=== PATIENT | female | born 1990 | race Caucasian/White ===

== ENCOUNTER 2023-11-25 10:34 | Outpatient (CLI) | payer OTHER, SELFPAY ==
--- NOTE | ~2023-11-25 | MR_ITS ---
EXAMINATION: MR shoulder LT wo con DATE: 11/25/2023 11:18 INDICATION: Left shoulder injury. Left shoulder pain. TECHNIQUE: Magnetic resonance imaging (MRI) of the left shoulder was performed without intravenous co ntrast. Sequences included axial PD-weighted FS FSE, coronal oblique PD-weighted FS FSE and T2-weight ed FS FSE, and sagittal oblique T2-weighted FS FSE and T1-weighted FSE. COMPARISON: None. FINDINGS: Coracoacromial arch: The acromion undersurface is curved in morphology (type II). There is mild acromioclavicular joint os teoarthritis including inferiorly directed osteophytes. There is mild subacromial/subdeltoid bursitis . Rotator cuff: There is mild supraspinatus and infraspinatus tendinopathy. Teres minor tendon is normal. There is mi ld subscapularis tendinopathy. There is no asymmetric fatty atrophy of the rotator cuff muscle bellie s. Biceps tendon and glenoid labrum: Intra-articular biceps tendon is normal. Intra-articular biceps tendon is normal. The glenoid labrum is normal. Fluid: There is a small glenohumeral joint effusion. Bones/cartilage: Humeral head cartilage is normal. Glenoid cartilage is normal. IMPRESSION: 1. Mild rotator cuff tendinopathy. No tear. 2. Mild acromioclavicular joint osteoarthritis. 3. Mild subacromial/subdeltoid bursitis. 4. Small glenohumeral joint effusion. Reviewed, dictated and finalized at location [facility]
== END 2023-11-25 10:35 | disposition home or self-care (01) ==
DX: M75.32 Calcific tendinitis of left shoulder (principal); M19.012 Primary osteoarthritis, left shoulder; M75.52 Bursitis of left shoulder; M25.412 Effusion, left shoulder
CPT/HCPCS: 73221

== ENCOUNTER 2024-06-07 19:11 | Emergency (ER) | payer OTHER, SELFPAY ==
--- NOTE | 2024-06-07 19:13 | ED.FEMALEGU ---
HPI - Female Genitourinary General Chief complaint: Urogenital-Female Stated complaint: UTI Time Seen by Provider: 06/07/24 19:13 Source: patient Mode of arrival: ambulatory Limitations: no limitations History of Present Illness HPI Narrative: Lilo is a 33-year-old female patient presenting to the clinic today with complaints of possible UTI x3 days. She reports she has been taking azo every 4-6 hours as needed for pain. Has developed some back pain on the left side as well as reporting lower abdominal pain, burning, frequency, and urgency with urination. Also reports some nausea. No known fever, chills, or body aches Related Data Home Medications Medication Instructions Recorded Confirmed desogestrel 0.15 mg-ethinyl 1 tablet PO DAILY 06/07/24 06/07/24 estradiol 0.03 mg tablet (Apri) venlafaxine 75 mg capsule,extended 37.5 mg PO DAILY 06/07/24 06/07/24 release 24 hr Allergies Allergy/AdvReac Type Severity Reaction Status Date / Time No Known Allergies Allergy Verified 06/07/24 19:30 Review of Systems Review of Systems: Pertinent positives per HPI. Patient denies any fever, chills, rash, headache, visual changes, dizziness, cough, runny nose, sore throat, shortness of breath, chest pain, palpitations, vomiting, diarrhea, constipation, abdominal pain. PMFSH Comments At the time of my signature, I reviewed and agree with the nursing past medical, surgical, social, and family history. There is no relevant family history pertinent to the patient complaint. Exam Narrative: General: Well-developed, well nourished, in no apparent distress. Head: Normocephalic, atraumatic. Cardio: Regular rate and rhythm, s1 and s2 normal, no murmur appreciated. Resp: Clear to auscultation bilaterally, no rhonchi, rales, wheezing or rubs. Abdomen: Soft, pliable, bowel sounds present in all quadrants, tender to palpation over the suprapubic area, no organomegly, left CVAT tenderness. Course Course Emergency Course: Portions of this record may have been created with voice recognition software. Level of Care: Express Care Visit Vital Signs Vital signs: Vital signs reviewed MDM - Female Genitourinary MDM Narrative Medical decision making narrative: At the time of visit patient is resting comfortably on the exam table. Patient appears to be nontoxic. Labs: Urine culture was sent to the lab. Patient reports she has been taking azo every 4-6 hours Plan: Patient is on azo so we cannot do a urine dip at this time. Will send urine for culture. I suspect patient likely has early pyelonephritis as she has left-sided CVAT, nausea, and UTI symptoms. Will place on 7 day course of Bactrim DS. Supportive measures were discussed with the patient and they voiced understanding discharge instructions and agrees to treatment plan. Return precautions reviewed Differential Diagnosis Differential diagnosis: Likely urinary tract infection and cystitis Discharge Plan Discharge Clinical Impression: Urinary tract infection Qualifiers: Urinary tract infection type: acute cystitis Hematuria presence: without hematuria Qualified Code(s): N30.00 - Acute cystitis without hematuria Patient Disposition: Home, Self-Care Condition: Stable Instructions: Antibiotic Form, Urinary Tract Infection in Women (ED) Additional Instructions: Urinalysis was sent for culture. We will call you if the antibiotics do not cover the type of infection that is growing and switch your antibiotics if needed Take Bactrim as prescribed Increase fluids and stay well hydrated Wipe front to back. May use wet wipes. Avoid tub baths If sexually active- pee before and after intercourse. Wear cotton panties Avoid tight clothing up against the genitals Follow up with your PCP in 1 week if symptoms persist. Prescriptions: New sulfamethoxazole-trimethoprim [Bactrim DS] 800-160 mg tablet 1 tablet PO Q12H 7 Days Qty: 14 0RF No
[2024-06-07 19:23] VITALS: BP 145/88; PULSE 88; RESP 18; TEMP 36.6; O2SAT 98
== END 2024-06-07 19:33 | disposition home or self-care (01) ==
PROVIDERS: Emergency Provider Nurse Practitioner Family
DX: N30.00 Acute cystitis without hematuria (principal); B96.20 Unspecified Escherichia coli [E. coli] as the cause of diseases classified elsewhere; F41.9 Anxiety disorder, unspecified; F32.A Depression, unspecified; Z86.16 Personal history of COVID-19
CPT/HCPCS: 87077; 87086; 87088; 87186; 99213; G0463

== ENCOUNTER 2024-10-25 17:09 | Emergency (ER) | payer OTHER, SELFPAY ==
[2024-10-25 17:09] VITALS: BP 127/86; PULSE 78; RESP 16; TEMP 36.6; O2SAT 99
--- OUTSIDE RECORDS SUMMARY | 2024-10-25 17:13 | XMS_ITS | Clinical Summary ---
Author Organization [facility] [employer] Address [address] [place] [address] Care Team Providers Care Sulfonation Equipment Operator Name Role Phone Unavailable Primary Care Provider Unavailabl e Source Comments [facility] [employer],non-owned Affiliates and Associated Physician Practices is amultiple site organization consisting of ambulatory clinics and hospital sitesin [place], [place], [place] and [place]. This disclosure is being madepursuant to the Care Everywhere program and may not contain all information available regarding this patient. Last updated 18.[employer] Allergies No known active allergies Medications * Be aware that medications may not be up to date on this document. Alwaysverify current medications with the patient. Medication Sig Dispensed Refills Start Date End Date Status raNITIdine (ZANTAC) 150 MG tablet Take 150 mg by mouth once daily Active Vit-Fe Fumarate-FA ( VITAMIN PO) Take 1 tablet by mouth once daily Active ibuprofen (MOTRIN) 600 MG tablet Take 1 tablet by mouth every 6 hours as needed for Pain 60 tablet 2 04/11/2018 Active docusate sodium (COLACE) 100 MG capsule Take 1 capsule by mouth 2 times daily 60 capsule 2 04/11/2018 Active Active Problems Problem Noted Date Diagnosed Date Oligohydramnios in third trimester 04/06/2018 Supervision of normal 04/05/2018 History of 2 sections 04/05/2018 Overview (04/05/2018): History of two prior CD First for face presentation Second for AoDil versus physician concern Immunizations Name Administration Dates Next Due TDAP (7yrs+) 04/10/2018 Social History Tobacco Use Types Packs/Day Years Used Date Smoking Tobacco: Never Smokeless Tobacco: Never Sex and Gender Information Value Date Recorded Sex Assigned at Not on file Gender Identity Not on file Sexual Orientation Not on file Last Filed Vital Signs Vital Sign Reading Time Taken Comments Blood Pressure 118/81 04/11/2018 1:20 PM CDT Pulse 67 04/11/2018 1:20 PM CDT Temperature 36.5 C (97.7 F) 04/11/2018 1:20 PM CDT Respiratory Rate 18 04/11/2018 1:20 PM CDT Oxygen Saturation 100% 04/11/2018 1:20 PM CDT Inhaled Oxygen Concentration - - Weight 81.1 kg (178 lb 11.2 oz) 04/05/2018 6:25 PM CDT Height 160 cm (5' 3 ) 04/05/2018 3:08 PM CDT Body Mass Index 31.66 04/05/2018 3:08 PM CDT Plan of Treatment Health Maintenance Due Date Last Done Comments PAP SMEAR 1990 HIV SCREENING 2005 HEPATITIS C SCREENING 10/10/2008 HEPATITIS B VACCINE (1 of 3 - 19+ 3-dose series) 2009 COVID-19 VACCINE (2023-2 5 season) 2024 INFLUENZA VACCINE (#1) 2024 DEPRESSION SCREENING 09/18/2024 DTAP/TDAP/TD VACCINES (2 - T d or Tdap) 04/10/2028 04/10/2018 ZOSTER VACCINE (1 of 2) 2040 HIB VACCINE Aged Out No longer eligi ble based on patient's age to complete this topic HPV VACCINE Aged Out No longer eligi ble based on patient's age to complete this topic MENINGOCOCCAL (Group B) VACCINE Aged Out No longer eligible based on patient's age to complete this topic MENINGOCOCCAL VACCINE Aged Out No jamel judy eligible based on patient's age to complete this topic PNEUMOCOCCAL VACCINE Aged Out No long er eligible based on patient's age to complete this topic Advance Directives * Full Code (Latest Code Status on File) Date Activated Date Inactivated Comments 04/08/2018 9:19 AM 04/11/2018 2:39 PM * Full Code Date Activated Date Inactivated Comments 04/05/2018 7:58 PM 04/08/2018 9:19 AM
--- OUTSIDE RECORDS SUMMARY | 2024-10-25 17:13 | XMS_ITS | Referral Summary ---
Author Organization [facility] [employer] Address [address] [place] [address] Care Team Providers Care Stove Tender Name Role Phone Unavailable Primary Care Provider Unavailabl e Source Comments [facility] [employer],non-owned Affiliates and Associated Physician Practices is amultiple site organization consisting of ambulatory clinics and hospital sitesin [place], [place], [place] and [place]. This disclosure is being madepursuant to the Care Everywhere program and may not contain all information available regarding this patient. Last updated 18.[facility] [employer] Allergies No known active allergies Medications * [...] Mass Index 31.66 04/05/2018 3:08 PM CDT Functional Status Functional Status Response Date of Assess ment Is person deaf or have serious hearing difficult y? No 04/08/2018 Is person blind or have serious difficulty seein g? No 04/08/2018 Does person have serious dif ficulty walking/climbing stairs? No 04/08/2018 Does person have difficulty dressing/bathing? No 04/08/2018 Does person have difficulty doing errands alone? No 04/08/2018 Cognitive Status Response Date of Assessm ent Does person have difficulty concentrating/remembering/making decisions? No 04/08/2018 Plan of Treatment Not on file Advance Directives * Full Code (Latest Code Status on File) Date Activated Date Inactivated Comments 04/08/2018 9:19 AM 04/11/2018 2:39 PM * Full Code Date Activated Date Inactivated Comments 04/05/2018 7:58 PM 04/08/2018 9:19 AM
--- OUTSIDE RECORDS SUMMARY | 2024-10-25 17:13 | XMS_ITS | Patient Health Summary ---
Author Organization [facility] Address [address] [place] [address] Care Team Providers Care Screening Nurse Name Role Phone Unavailable Primary Care Provider Unavailabl e Note from [facility],non-owned Affiliates and Associated Physician Practices is amultiple site organization consisting of ambulatory clinics and hospital sitesin [place], [place], [place] and [place]. This disclosure is being madepursuant to the Care Everywhere program and may not contain all information available regarding this patient. Last updated 18.[facility] Allergies No known active allergies Medications * Be aware that medications may not be up to date on this document. Alwaysverify current medications with the patient. * raNITIdine (ZANTAC) 150 MG tablet Take 150 mg by mouth once daily * Vit-Fe Fumarate-FA ( VITAMIN PO) Take 1 tablet by mouth once daily * ibuprofen (MOTRIN) 600 MG tablet(Started 04/11/2018) Take 1 tablet by mouth every 6 hours as needed for Pain 2 refills remaining * docusate sodium (COLACE) 100 MG capsule(Started 04/11/2018) Take 1 capsule by mouth 2 times daily 2 refills remaining Active Problems Problem Noted Date Diagnosed Date Oligohydramnios in third trimester 04/06/2018 Supervision of normal 04/05/2018 History of 2 sections 04/05/2018 Immunizations * TDAP (7yrs+)(Given 04/10/2018) Social History Tobacco Use Types Packs/Day Years [...] Mass Index 31.66 04/05/2018 3:08 PM CDT Procedures * HGB HCT PANEL(Performed 04/10/2018) * NEURAXIAL BLOCK(Performed 04/09/2018) * BLOOD GASES CORD NORMA (ISTAT)(Performed 04/09/2018) * BLOOD GASES CORD ART (ISTAT)(Performed 04/09/2018) * TYPE + SCREEN PANEL(Performed 04/08/2018) * CBC W AUTO DIFFERENTIAL(Performed 04/08/2018) Performed for Encounter for supervision of normal first in third trimester (HCC) * BLOOD TYPE VERIFICATION(Performed 04/05/2018) * TYPE + SCREEN PANEL(Performed 04/05/2018) * CBC W AUTO DIFFERENTIAL(Performed 04/05/2018) * SONOGRAM - COMPLETE(Performed 04/05/2018) Performed for History of 2 sections Results * (ABNORMAL) HGB HCT PANEL (04/10/2018 4:34 AM CDT) Hemoglobin 10.1(L) 12.0 - 15.6 gm/dL 04/10/2018 5:14 AM CDT [facility] Hematocrit 29.9(L) 35.9 - 45.5 % 04/10/2018 5:14 AM CDT [facility] Blood BLOOD SPECIMEN / Unknown Lab Venipuncture / Unknown 04/10/2018 4:34 AM CDT 04/10/2018 5:03 AM CDT Rita Theodore MD LAB - HEMATOLOGY ORDERABLES [facility] [address] [place] [address] [phone] * NEURAXIAL BLOCK (04/09/2018 6:28 PM CDT) Narrative Kuldip Dumas MD - 04/09/2018 6:28 PM CDT Vivian Tierney APRN-FRAME TABLE OPERATOR 04/09/2018 11:23 AM Neuraxial Block Note Procedure Name: Neuraxial Block Patient Location: OB Pre-Procedure: Indications: labor analgesia Pre-Anesthetic Checklist: Patient identified, IV Checked, Risks and benefits discussed, Surgical consent verified, Monitors and equipment, Site examined, Pre-op evaluation done, Time-out performed, Informed consent obtained, Questions answered/anesthesia questions answered and Allergies reviewed Anticoagulation/ Anti-thrombosis status confirmed? Yes Monitors: BP and continuous pluse ox Patient Condition: awake Patient Position: sitting Procedure: Block Type: Epidural Prep: Betadine Sterile Field: mask, cap/hat, sterile established and sterile gloves Approach: midline Skin localized with: lidocaine 1%, 5 mL Epidural Block: Is this procedure for postop pain? No Needle Type: Tuohy Needle gauge: 18 G Needle length: 90 mm Placement Site: L3-L4 Number of Attempts: 1 Loss of Resistance: 8 air Catheter length at skin (cm): 14 CSF Aspirated from catheter: No Blood Aspirated: No Test Dose: lidocaine 1.5% with 1-200,000 epinephrine 3 mL at 04/09/2018 11:12 AM Test Dose Response: No Epidural Local Anesthetic: Bupivacaine: 0.25% with Epinephrine 1-200,000 , 10 mL Epidural Infusion Medications: Ropivacaine: 0.2% with Fentanyl 2mcg/mL in NS , 150 cc (mL) at 14 mL/hr Degree of difficulty: none Procedure Tolerance: tolerated well Sensory Level: T8 Motor Blockade: Yes Position post procedure: head of bed elevated 30 degrees, left uterine displacement Vital Signs: Vital sings monitored and stable throughout. See anesthesia record for details., Vital signs moniitored and stable throughout. See nursing vitals flowsheet for details., heart tones monitored and stable throughout. Staff: Anesthesia Provider: VIVIAN TIERNEY - performed the procedure Provider #1: KULDIP DUMAS Additional Notes: Called to patients room. Epidural placed without complications. Negative heme, Neg, CSF + JUNO x 1 attempt. Pt getting comfortable Kuldip Dumas MD GENERAL ANESTHESIA O RDERABLES * (ABNORMAL) BLOOD GASES CORD NORMA (ISTAT) (04/09/2018 4:16 PM CDT) pH Cord Venous POCT 7.43(H) 7.28 - 7.40 pH 04/09/2018 4:46 PM CDT [facility] pCO2 Cord Venous POCT 28(L) 35 - 45 mmHg 04/09/2018 4:46 PM CDT [facility] pO2 Cord Venous POCT 36(H) 22 - 33 mmHg 04/09/2018 4:46 PM CDT [facility] HCO3 Cord Arterial POCT 18(L) 22 - 24 mmol/L 04/09/2018 4:46 PM CDT [facility] BE Cord Venous POCT Calc -4 -6.4 - 1.6 mmol/L 04/09/2018 4:46 PM CDT [facility] TCO2 Cord Venous POCT 19(L) 22 - 30 mmol/L 04/09/2018 4:46 PM CDT [facility] O2 Saturation % Cord Venous Calc POCT 72 % 04/09/2018 4:46 PM CDT [facility] Site CORD NORMA 04/09/2018 4:46 PM CDT [facility] Sample iSTAT CORD V 04/09/2018 4:46 PM CDT [facility] Blood CORD BLOOD SPECIMEN / Unknown 04/09/2018 4:16 PM CDT 04/09/2018 4:46 PM CDT Kamini Chase MD LAB - POINT OF CARE ORDERABLES Performing Organization Address City/State/[facility] Co de Phone Number [facility] [address] [place], [place] [id number] * (ABNORMAL) BLOOD GASES CORD ART (ISTAT) (04/09/2018 4:11 PM CDT) pH Cord Arterial POCT 7.44(H) 7.20 - 7.34 pH 04/09/2018 4:46 PM CDT [facility] pCO2 Cord Arterial POCT 27.3(L) 45 - 55 mmHg 04/09/2018 4:46 PM CDT [facility] pO2 Cord Arterial POCT 34(H) 12 - 25 mmHg 04/09/2018 4:46 PM CDT [facility] HCO3 Cord Arterial POCT 18.3(L) 22 - 24 mmol/L 04/09/2018 4:46 PM CDT [facility] BE Cord Arterial POCT -4(L) -2.9 - 8.3 mmol/L 04/09/2018 4:46 PM CDT [facility] TCO2 Cord Arterial POCT 19 mmol/L 04/09/2018 4:46 PM CDT [facility] O2 Saturation Cord Art % Calc POCT 70 % 04/09/2018 4:46 PM CDT [facility] Site CORD ART 04/09/2018 4:46 PM CDT [facility] Sample iSTAT CORD A 04/09/2018 4:46 PM CDT [facility] Blood CORD BLOOD SPECIMEN / Unknown 04/09/2018 4:11 PM CDT 04/09/2018 4:46 PM CDT Kamini Chase MD LAB - POINT OF CARE ORDERABLES Performing Organization Address City/[facility] Co de Phone Number [facility] [address] [place] [address] * TYPE + SCREEN PANEL (04/08/2018 4:45 AM CDT) Only the most recent of2 resultswithin the time period is included. ABO O 04/08/2018 5:51 AM CDT [facility] Rh Type Negative 04/08/2018 5:51 AM CDT [facility] Comment:History checked. Antibody Screen Negative 04/08/2018 5:51 AM CDT [facility] Blood Bank BLOOD SPECIMEN / Unknown Lab Venipuncture / Unknown 04/08/2018 4:45 AM CDT 04/08/2018 4:58 AM CDT Manisha Lara MD LAB - BLOOD BANK ORD ERABLES Performing Organization Address [facility] Co de Phone Number [facility] [address] [place] [address] * (ABNORMAL) CBC W AUTO DIFFERENTIAL (04/08/2018 4:45 AM CDT) Only the most recent of2 resultswithin the time period is included. [facility] WBC 5.8 4.4 - 10.7 x10E9/L 04/08/2018 5:20 AM CDT [facility] WBC Corrected x10E9/L 04/08/2018 5:20 AM CDT [facility] RBC 3.70(L) 3.80 - 5.20 x10E12/L 04/08/2018 5:20 AM CDT [facility] Hemoglobin 11.2(L) 12.0 - 15.6 gm/dL 04/08/2018 5:20 AM CDT [facility] Hematocrit 33.0(L) 35.9 - 45.5 % 04/08/2018 5:20 AM CDT [facility] MCV 89.2 80.7 - 98.3 fl 04/08/2018 5:20 AM CDT [facility] MCH 30.3 26.7 - 34.0 pg 04/08/2018 5:20 [facility] MCHC 33.9 30.8 - 35.9 gm/dL 04/08/2018 5:20 AM [facility] Platelet Count 133(L) 153 - 416 x10E9/L 04/08/2018 5:20 AM CDT [facility] RDW-CV 13.7 12.1 - 14.9 % 04/08/2018 5:20 AM CDT [facility] MPV 10.9 9.4 - 12.9 fl 04/08/2018 5:20 AM [facility] Neutrophils % 56.3 44.0 - 73.0 % 04/08/2018 5:20 AM CDT [facility] Lymphocytes % 34.9 20.0 - 43.0 % 04/08/2018 5:20 AM CDT [facility] Monocytes % 7.5 5.0 - 13.0 % 04/08/2018 5:20 AM CDT [facility] Eosinophils % 0.3 0.0 - 6.0 % 04/08/2018 5:20 AM CDT [facility] Basophils % 0.3 0.0 - 2.0 % 04/08/2018 5:20 AM CDT [facility] Immature Granulocytes 0.7 0 - 1 % 04/08/2018 5:20 AM CDT [facility] Neutrophil Absolute 3.28 2.01 - 7.14 x10E9/L 04/08/2018 5:20 AM CDT [facility] Lymphocytes Absolute 2.04 1.07 - 3.94 x10E9/L 04/08/2018 5:20 AM CDT [facility] Monocytes Absolute 0.44 0.26 - 1.07 x10E9/L 04/08/2018 5:20 AM CDT [facility] Eosinophils Absolute 0.02 0 - 0.47 x10E9/L 04/08/2018 5:20 AM CDT [facility] Basophils Absolute 0.02 0 - 0.08 x10E9/L 04/08/2018 5:20 AM CDT [facility] Immature Granulocytes Absolute 0.04 0.00 - 0.06 x10E9/L 04/08/2018 5:20 AM CDT [facility] nRBC Auto 0 /100 WBC 04/08/2018 5:20 AM CDT [facility] Blood BLOOD SPECIMEN / Unknown Lab Venipuncture / Unknown 04/08/2018 4:45 AM CDT 04/08/2018 4:57 AM CDT Manisha Lara MD LAB - HEMATOLOGY ORD ERABLES [facility] [address] [place] [address] * BLOOD TYPE VERIFICATION (04/05/2018 9:07 PM CDT) ABO O 04/05/2018 9:49 PM CDT [facility] Rh Type Negative 04/05/2018 9:49 PM CDT [facility] Blood Bank BLOOD SPECIMEN / Unknown 04/05/2018 9:07 PM CDT 04/05/2018 9:07 PM CDT Kamini Chase MD LAB - BLOOD BANK OR DERABLES [facility] [address] [phone] * SONOGRAM - COMPLETE (04/05/2018 3:28 PM CDT) Anatomical Region Laterality Modality Other 04/05/2018 3:28 PM CDT Narrative 04/05/2018 5:[address] [facility] [place] PHONE: FAX: Pat. Name: VERNA OVIEDO Pat. No: [id number] Study Date: 04/05/2018 3:28pm , Age: 1 1990, Height: 63 in Weight: 163 lb LMP: Unknown GA by US: 37w3d HILARIO: 04/23/2018 GA Selected: 39w3d (From Known E) HILARIO: 04/09/2018 Referring MD: Delarosa Angela Supervisor Assembly Room: Randee Salcedo RDMS CPT4: 08678 BMI: 28.87 Hist/Ind: PRIOR C SECTION X 2 TRIAL OF LABOR MEASUREMENTS & AGE GROWTH EVALUATION Measurement GA Range Srce %for GA Ratios ----- ---- ------- BPD 9.0 cm 36w4d (32x8d-78r5l) Hadl BPD 13% FL/BPD 0.77 (0.71 - 0.87) HC 34.7 cm 40w2d (23c4l-22c7j) Hadl HC 61% FL/AC 0.21 (0.20 - 0.24) AC 33.2 cm 37w1d (95n3x-20z5p) Hadl AC 13% HC/AC 1.04 (0.89 - 1.08) FL 7.0 cm 35w5d (61d2s-37v4e) Hadl FL 1% CI 0.73 (0.70 - 0.86) GA for sonogram 37w3d (89i0e-10r0j) Weight Estimate: based on (BPD,HC,AC,FL) Avg Weight: 3098 gm (2646-3550gm) Had : 6lbs, 13oz Normal: 3514 gm (2635-4393gm) Had Wt% 18% for 39w3d Heart Rate: 145 bpm Amniotic Fluid Index: 04.6cm (Deepest Pocket) PROCEDURE, TECHNIQUE Procedure: Rate of growth Technique: transabdominal EVAL, PLACENTA Presentation: cephalic Placenta: posterior Previa: no previa seen Heart Rate: 145 bpm Amniotic Fluid Volume: oligohydramnios MATERNAL ANATOMY Ovaries LxHxW (cm) NOT SEEN TODAY Anatomy!Normal!Abnormal!Suboptimal!Comments 4 Chamber Hea! x ! ! ! Diaphragm ! x ! ! ! Kidneys ! x ! ! ! Bladder ! x ! ! ! CLINICAL SUMMARY Study Number: 1 A harkins fetus is identified in cephalic presentation. The placenta is posterior. The amniotic fluid volume demonstrates oligohydramnios. NST was reactive with some contractions every 10-15 minutes CONSULTATION: I met with Ms. Logan today in our office. She was sent for counseling regarding TOLAC after 2 previous c-sections. Her first was face presentation at 8 cm dilated. She then attempted a TOLAC with her 2nd delivery. She progressed to 6 cm but had a repeat for arrest of dilation. She denies any other medical problems. I discussed with Verna Oviedo, at length. We discussed that the risk of uterine rupture 1.0% for two LTCS. We discussed the increased risk of mortality to her and her baby should rupture occur and that there is risk of serious injury and even to both mother and baby. Based upon non-recurring indications and data on harkins after one , the success rate is stated at 60-80%; however, with induction of labor, the success rate is approximately cut in half: 30-40%.I stressed to her that mode of delivery is to her discretion but that a repeat may be recommended due to concerns for her health or her baby's. Thus, within labor, any sign of intolerance, lack of labor progression or signs/symptoms consistent with uterine rupture/dehiscence, a repeat would be performed. She stated her understanding of this and agreed. She is also aware that she may, at any time, change her mode of delivery to repeat . We discussed that today her ultrasound demonstrates oligohydramnios at term. I recommended to move towards delivery. She strongly desires a TOLAC still. I instructed her to present to [facility] for admission. I discussed that she would be examined there and have further counseling regarding TOLAC with induction based on her cervical exam I spoke with charge nurse for L&D and Antepartum, who are expecting the patient. Consult Time: The majority of 40 minutes today was spent counseling the patient about the above. IMPRESSION: Single, Live IUP at 39w3d oligohydramnios Placental location: posterior Appropriate growth for stated HILARIO RECOMMEND: Follow up ultrasound as clinically indicated. Patient to [facility] to move towards delivery. Mode of delivery at the discretion of the in house team. Thank you for allowing us the opportunity to care for your patient. Riley Coughlin MD <Electronic Signature> 04/05/2018 05:51pm Nasra Delarosa MD [facility] ORDERABLES
[2024-10-25 17:30] VITALS: BP 111/74; PULSE 64; RESP 17; O2SAT 98
[2024-10-25 17:30] LABS: Basophils Absolute Auto 0.02 K/mm3 (0.00-0.10); Basophils Percent Auto 0.3 % (0.0-1.0); Eosinophils Absolute Auto 0.02 K/mm3 (0.02-0.50); Eosinophils Percent Auto 0.3 % (1.0-6.0); Hematocrit 38.6 % (35.0-49.0); Immature Granulocyte Absolute 0.02 K/mm3 (0.00-0.00); Immature Granulocyte Percent A 0.3 % (0.0-0.0); Lymphocytes Absolute Auto 2.68 K/mm3 (1.10-4.50); Lymphocytes Percent Auto 34.4 % (18.0-42.0); Mean Corpuscular HGB Conc 33.7 g/dL (32-36); Mean Corpuscular Hemoglobin 29.3 pg (27.0-31.0); Mean Corpuscular Volume 86.9 fL (78.0-102.0); Mean Platelet Volume 9.4 fl (9.2-11.8); Monocytes Absolute Auto 0.72 K/mm3 (0.10-0.90); Monocytes Percent Auto 9.2 % (2.0-11.0); Neutrophils Absolute Auto 4.34 K/mm3 (1.70-7.20); Neutrophils Percent Auto 55.5 % (50.0-70.0); Platelet Count Result 276 K/mm3 (150-420); Red Blood Count 4.44 M/mm3 (4.20-5.40); Red Cell Distribution Width 12.7 % (11.6-14.4); White Blood Count 7.8 K/mm3 (4.8-10.8)
[2024-10-25 17:46] LABS: Alanine Aminotransferase 66 U/L (14-59); Albumin Level 3.8 g/dL (3.4-5.0); Alkaline Phosphatase 122 U/L (46-116); Anion Gap 10 mmol/L (4-12); Bilirubin,Total 2.9 mg/dL (0.00-1.00); Calcium 9.1 mg/dL (8.5-10.1); Carbon Dioxide 27 mmol/L (21-32); Chloride 108 mmol/L (98-108); Estimated CRCL calculation 99 ml/min; Estimated Glomerular Filt Rate > 60; Glucose 70 mg/dL (70-99); Osmolality Calculated 316 mOsm/kg (285-295); Sodium 145 mmol/L (136-145)
--- OUTSIDE RECORDS SUMMARY | 2024-10-25 17:47 | XMS_ITS | Encounter Summary ---
Author Organization [facility] Address [address] [place] [address] Care Team Providers Care Cantilever Crane Operator Name Role Phone None, Provider Primary Care Provider Alecia Lubin CNM Primary Care Provider [phone] Heidy Mcdaniel NP Primary Care Provider [phone] José Chauhan MD Unavailable [phone] None, Provider Primary Care Provider UnavailKeisha Vieyra DNP Primary Care Provider [phone] Encounter Details Date Type Department Care Team (Late st Contact Info) Description 09/13/2007 Abstract [facility] Conversion , Generic Conversion, Social History Tobacco Use Types Packs/Day Years Used Date Smoking Tobacco: Never Assessed Comments Unknown Sex and Gender Information Value Date Recorded Sex Assigned at Not on file Legal Sex Female 4:12 PM CDT Gender Identity Not on file Sexual Orientation Not on file documented as of this encounter Plan of Treatment Not on file documented as of this encounter Visit Diagnoses Not on filedocumented in this encounter Care Teams Cantilever Crane Operator Relationship Specialty Start Date End Date None, Provider, PCP - General 06/18/19 06/18/19 Alecia Hamilton CNM PCP - General ADVANCED PRACTICE INCINERATOR PLANT SUPERVISOR 06/19/1902/17 Heidy Mcdaniel NP [address] [place] [phone] PCP - General NURSE PRACTITIONER 03/17/20 08/10/22 None, Provider, PCP - General UNKNOWN PHYSICIAN SPECIALTY 08/11/22 07/05/23 Keisha Carvajal DNP [address] [place] [address] PCP - General NURSE PRACTITIONER 07/06/23 José Chauhan MD [address] [place] [phone] Consulting Physician INTERVENTIONAL CARDIOLOGY 03/17/20 documented as of this encounter
--- OUTSIDE RECORDS SUMMARY | 2024-10-25 17:47 | XMS_ITS | Patient Health Summary ---
Author Organization [facility] Address [address] [place] [address] Care Team Providers Care Marketing Database Analyst Name Role Phone Unavailable Primary Care Provider Unavailabl e Note from [facility],non-owned Affiliates and Associated Physician Practices is amultiple site organization consisting of ambulatory clinics and hospital sitesin [place], [place], [place] and [place]. This disclosure is being madepursuant to the Care Everywhere program and may not contain all information available regarding this patient. Last updated 18.[facility] Allergies No known active allergies Medications * [...] - 15.6 gm/dL 04/10/2018 5:14 AM CDT [facility] Hematocrit 29.9(L) 35.9 - 45.5 % 04/10/2018 5:14 AM CDT [facility] Blood BLOOD SPECIMEN / Unknown Lab Venipuncture / Unknown 04/10/2018 4:34 AM CDT 04/10/2018 5:03 AM CDT Rita Theodore MD LAB - HEMATOLOGY ORDERABLES [facility] [address] [place] [address] [phone] * NEURAXIAL BLOCK (04/09/2018 6:28 PM CDT) Narrative Kuldip Dumas MD - 04/09/2018 6:28 PM CDT Vivian Tierney APRN-APPLE PACKING HEADER 04/09/2018 11:23 AM Neuraxial Block Note Procedure [...] - 7.40 pH 04/09/2018 4:46 PM CDT [facility] pCO2 Cord Venous POCT 28(L) 35 - 45 mmHg 04/09/2018 4:46 PM CDT [facility] pO2 Cord Venous POCT 36(H) 22 - 33 mmHg 04/09/2018 4:46 PM CDT [facility] HCO3 Cord Arterial POCT 18(L) 22 - 24 mmol/L 04/09/2018 4:46 PM CDT [facility] BE Cord Venous POCT Calc -4 -6.4 - 1.6 mmol/L 04/09/2018 4:46 PM CDT [facility] TCO2 Cord Venous POCT 19(L) 22 - 30 mmol/L 04/09/2018 4:46 PM CDT [facility] O2 Saturation % Cord Venous Calc POCT 72 % 04/09/2018 4:46 PM CDT [facility] Site CORD [place]MA 04/09/2018 4:46 PM CDT [facility] Sample iSTAT CORD V 04/09/2018 4:46 PM CDT [facility] Blood CORD BLOOD SPECIMEN / Unknown 04/09/2018 4:16 PM CDT 04/09/2018 4:46 PM CDT Kamini Chase MD LAB - POINT OF CARE ORDERABLES Performing Organization Address City/State/[facility] Co de Phone Number [facility] [address] [place], [place] [phone] * (ABNORMAL) BLOOD GASES CORD ART (ISTAT) (04/09/2018 4:11 PM CDT) pH Cord Arterial POCT 7.44(H) 7.20 - 7.34 pH 04/09/2018 4:46 PM CDT [facility] pCO2 Cord Arterial POCT 27.3(L) 45 - 55 mmHg 04/09/2018 4:46 PM CDT [facility] pO2 Cord Arterial POCT 34(H) 12 - 25 mmHg 04/09/2018 4:46 PM CDT [facility] HCO3 Cord Arterial POCT 18.3(L) 22 - 24 mmol/L 04/09/2018 4:46 PM CDT [facility] BE Cord Arterial POCT -4(L) -2.9 - 8.3 mmol/L 04/09/2018 4:46 PM CDT [facility] TCO2 Cord Arterial POCT 19 mmol/L 04/09/2018 4:46 PM CDT [facility] O2 Saturation Cord Art % Calc POCT 70 % 04/09/2018 4:46 PM CDT [facility] Site CORD ART 04/09/2018 4:46 PM CDT [facility] Sample iSTAT CORD A 04/09/2018 4:46 PM CDT [facility] Blood CORD BLOOD SPECIMEN / Unknown 04/09/2018 4:11 PM CDT 04/09/2018 4:46 PM CDT Kamini Chase MD LAB - POINT OF CARE ORDERABLES Performing Organization Address City/[facility] Co de Phone Number [facility] [address] [place] [address] * TYPE + SCREEN PANEL (04/08/2018 4:45 AM CDT) Only the most recent of2 resultswithin the time period is included. ABO O 04/08/2018 5:51 AM CDT [facility] Rh Type Negative 04/08/2018 5:51 AM CDT [facility] Comment:History checked. Antibody Screen Negative 04/08/2018 5:51 AM CDT [facility] Blood Bank BLOOD SPECIMEN / Unknown Lab Venipuncture / Unknown 04/08/2018 4:45 AM CDT 04/08/2018 4:58 AM CDT Manisha Lara MD LAB - BLOOD BANK ORD ERABLES Performing Organization Address [facility] Co de Phone Number [facility] [address] [place] [address] * (ABNORMAL) CBC W AUTO DIFFERENTIAL (04/08/2018 4:45 AM CDT) Only the most recent of2 resultswithin the time period is included. [facility] WBC 5.8 4.4 - 10.7 x10E9/L 04/08/2018 5:20 AM CDT [facility] WBC Corrected x10E9/L 04/08/2018 5:20 AM CDT [facility] RBC 3.70(L) 3.80 - 5.20 x10E12/L 04/08/2018 5:20 AM CDT [facility] Hemoglobin 11.2(L) 12.0 - 15.6 gm/dL 04/08/2018 5:20 AM CDT [facility] Hematocrit 33.0(L) 35.9 - 45.5 % 04/08/2018 5:20 AM CDT [facility] MCV 89.2 80.7 - 98.3 fl 04/08/2018 5:20 AM CDT [facility] MCH 30.3 26.7 - 34.0 pg 04/08/2018 5:[facility] MCHC 33.9 30.8 - 35.9 gm/dL 04/08/2018 5:20 AM [facility] Platelet Count 133(L) 153 - 416 x10E9/L 04/08/2018 5:20 AM CDT [facility] RDW-CV 13.7 12.1 - 14.9 % 04/08/2018 5:20 AM CDT [facility] MPV 10.9 9.4 - 12.9 fl 04/08/2018 5:20 AM [facility] Neutrophils % 56.3 44.0 - 73.0 % 04/08/2018 5:20 AM CDT [facility] Lymphocytes % 34.9 20.0 - 43.0 % 04/08/2018 5:20 AM CDT [facility] Monocytes % 7.5 5.0 - 13.0 % 04/08/2018 5:20 AM CDT [facility] Eosinophils % 0.3 0.0 - 6.0 % 04/08/2018 5:20 AM CDT [facility] Basophils % 0.3 0.0 - 2.0 % 04/08/2018 5:20 AM CDT [facility] Immature Granulocytes 0.7 0 - 1 % 04/08/2018 5:20 AM CDT [facility] Neutrophil Absolute 3.28 2.01 - 7.14 x10E9/L 04/08/2018 5:20 AM CDT [facility] Lymphocytes Absolute 2.04 1.07 - 3.94 x10E9/L 04/08/2018 5:20 AM CDT [facility] Monocytes Absolute 0.44 0.26 - 1.07 x10E9/L 04/08/2018 5:20 AM CDT [facility] Eosinophils Absolute 0.02 0 - 0.47 x10E9/L 04/08/2018 5:20 AM CDT [facility] Basophils Absolute 0.02 0 - 0.08 x10E9/L 04/08/2018 5:20 AM CDT [facility] Immature Granulocytes Absolute 0.04 0.00 - 0.06 x10E9/L 04/08/2018 5:20 AM CDT [facility] nRBC Auto 0 /100 WBC 04/08/2018 5:20 AM CDT [facility] Blood BLOOD SPECIMEN / Unknown Lab Venipuncture / Unknown 04/08/2018 4:45 AM CDT 04/08/2018 4:57 AM CDT Manisha Lara MD LAB - HEMATOLOGY ORD ERABLES [facility] [address] [place] [address] * BLOOD TYPE VERIFICATION (04/05/2018 9:07 PM CDT) ABO O 04/05/2018 9:49 PM CDT [facility] Rh Type Negative 04/05/2018 9:49 PM CDT [facility] Blood Bank BLOOD SPECIMEN / Unknown 04/05/2018 9:07 PM CDT 04/05/2018 9:07 PM CDT Kamini Chase MD LAB - BLOOD BANK OR DERABLES [facility] [address] [phone] * SONOGRAM - COMPLETE (04/05/2018 3:28 PM CDT) Anatomical Region Laterality Modality Other 04/05/2018 3:28 PM CDT Narrative 04/05/2018 5:58 PM CDT [facility] [place] PHONE: FAX: Pat. Name: VERNA OVIEDO Pat. No: [id number] Study Date: 04/05/2018 3:28pm , Age: 1 1990, Height: 63 in Weight: 163 lb LMP: Unknown GA by US: 37w3d HILARIO: 04/23/2018 GA Selected: 39w3d (From Known E) HILARIO: 04/09/2018 Referring MD: Delarosa Angela Parachute Taper: Randee Salcedo RDMS CPT4: 98672 BMI: 28.87 Hist/Ind: PRIOR C SECTION X 2 TRIAL OF LABOR MEASUREMENTS & AGE GROWTH EVALUATION Measurement GA Range Srce %for GA Ratios ----- ---- ------- BPD 9.0 cm 36w4d (27r7k-39g5v) Hadl BPD 13% FL/BPD 0.77 (0.71 - 0.87) HC 34.7 cm 40w2d (91n9p-72w7o) Hadl HC 61% FL/AC 0.21 (0.20 - 0.24) AC 33.2 cm 37w1d (40q0c-48l2o) Hadl AC 13% HC/AC 1.04 (0.89 - 1.08) FL 7.0 cm 35w5d (62s2a-61u6v) Hadl FL 1% CI 0.73 (0.70 - 0.86) GA for sonogram 37w3d (27s8m-35c7q) Weight Estimate: based on (BPD,HC,AC,FL) Avg Weight: [...] still. I instructed her to present to [facility] for admission. I discussed that [...] up ultrasound as clinically indicated. Patient to [facility] to move towards delivery. Mode of delivery at the discretion of the in house team. Thank you for allowing us the opportunity to care for your patient. Riley Coughlin MD <Electronic Signature> 04/05/2018 05:51pm Nasra Delarosa MD [facility] ORDERABLES
--- OUTSIDE RECORDS SUMMARY | 2024-10-25 17:47 | XMS_ITS | Encounter Summary ---
Author Organization [facility] Address [address] [place] [address] Care Team Providers Care Garbage Collector Supervisor Name Role Phone None, Provider Primary Care Provider Alecia Lubin CNM Primary Care Provider [phone] Heidy Mcdaniel NP Primary Care Provider [phone] José Chauhan MD Unavailable [phone], Provider Primary Care Provider UnavailKeisha Vieyra DNP Primary Care Provider [phone] Encounter Details Date Type Department Care Team (Late st Contact Info) Description 01/02/2008 Abstract [facility] Conversion , Generic Conversion, Social History Tobacco [...] on filedocumented in this encounter Care Teams Garbage Collector Supervisor Relationship Specialty Start Date End Date None, Provider, PCP - General 06/18/19 06/18/19 Alecia Hamilton CNM PCP - General ADVANCED PRACTICE TROUBLE CLERK 06/19/1902/17 Heidy Mcdaniel NP [address] [place] [phone] PCP - General NURSE PRACTITIONER 03/17/20 08/10/22 None, Provider, PCP - General UNKNOWN PHYSICIAN SPECIALTY 08/11/22 07/05/23 Keisha Carvajal DNP [address] [place] [address] PCP - General NURSE PRACTITIONER 07/06/23 José Chauhan MD [address] [place] [address] [phone] Consulting Physician INTERVENTIONAL CARDIOLOGY 03/17/20 documented as of this encounter
--- OUTSIDE RECORDS SUMMARY | 2024-10-25 17:47 | XMS_ITS | Encounter Summary ---
Author Organization [facility] Address [address] [place] [address] Care Team Providers Care Rubber Production Machine Operator Name Role Phone None, Provider Primary Care Provider Alecia Lubin CNM Primary Care Provider [phone] Heidy Mcdaniel NP Primary Care Provider [phone] José Chauhan MD Unavailable [phone], Provider Primary Care Provider UnavailKeisha Vieyra DNP Primary Care Provider [phone] Encounter Details Date Type Department Care Team (Late st Contact Info) Description 04/14/2008 Abstract [facility] Conversion , Generic Conversion, Social History Tobacco [...] on filedocumented in this encounter Care Teams Rubber Production Machine Operator Relationship Specialty Start Date End Date None, Provider, PCP - General 06/18/19 06/18/19 Alecia Hamilton CNM PCP - General ADVANCED PRACTICE AIR BOATSWAIN 06/19/1902/17 Heidy Mcdaniel NP [address] [place] [phone] PCP - General NURSE PRACTITIONER 03/17/20 08/10/22 None, Provider, PCP - General UNKNOWN PHYSICIAN SPECIALTY 08/11/22 07/05/23 Keisha Carvajal DNP [address] [place] [address] PCP - General NURSE PRACTITIONER 07/06/23 José Chauhan MD [address] [place] [address] [phone] Consulting Physician INTERVENTIONAL CARDIOLOGY 03/17/20 documented as of this encounter
--- OUTSIDE RECORDS SUMMARY | 2024-10-25 17:47 | XMS_ITS | Encounter Summary ---
Author Organization [facility] Address [address] [place] [address] Care Team Providers Care Electric Sealing Machine Operator Name Role Phone None, Provider Primary Care Provider Alecia Lubin CNM Primary Care Provider [phone] Heidy Mcdaniel NP Primary Care Provider [phone] José Chauhan MD Unavailable [phone], Provider Primary Care Provider UnavailKeisha Vieyra DNP Primary Care Provider [phone] Encounter Details Date Type Department Care Team (Late st Contact Info) Description 06/15/2005 Abstract [facility] Conversion , Generic Conversion, Social History [...] on filedocumented in this encounter Care Teams Electric Sealing Machine Operator Relationship Specialty Start Date End Date None, Provider, PCP - General 06/18/19 06/18/19 Alecia Hamilton CNM PCP - General ADVANCED PRACTICE ART EDITOR 06/19/1902/17 Heidy Mcdaniel NP [address] [place] [phone] PCP - General NURSE PRACTITIONER 03/17/20 08/10/22 None, Provider, PCP - General UNKNOWN PHYSICIAN SPECIALTY 08/11/22 07/05/23 Keisha Carvajal DNP [address] [place] [address] PCP - General NURSE PRACTITIONER 07/06/23 José Chauhan MD [address] [place] [address] [phone] Consulting Physician INTERVENTIONAL CARDIOLOGY 03/17/20 documented as of this encounter
--- OUTSIDE RECORDS SUMMARY | 2024-10-25 17:47 | XMS_ITS | Encounter Summary ---
Author Organization [facility] Address [address] [place] [address] Care Team Providers Care Cage Operator Name Role Phone None, Provider Primary Care Provider Alecia Lubin CNM Primary Care Provider [phone] Heidy Mcdaniel NP Primary Care Provider [phone] José Chauhan MD Unavailable [phone], Provider Primary Care Provider UnavailKeisha Vieyra DNP Primary Care Provider [phone] Encounter Details Date Type Department Care Team (Late st Contact Info) Description 08/15/2006 Abstract [facility] Conversion , Generic Conversion, Social History [...] on filedocumented in this encounter Care Teams Cage Operator Relationship Specialty Start Date End Date None, Provider, PCP - General 06/18/19 06/18/19 Alecia Hamilton CNM PCP - General ADVANCED PRACTICE TACTICAL/MOBILE WATCH OFFICER 06/19/1902/17 Heidy Mcdaniel NP [address] [place] [phone] PCP - General NURSE PRACTITIONER 03/17/20 08/10/22 None, Provider, PCP - General UNKNOWN PHYSICIAN SPECIALTY 08/11/22 07/05/23 Keisha Carvajal DNP [address] [place] [address] PCP - General NURSE PRACTITIONER 07/06/23 José Chauhan MD [address] [place] [address] [phone] Consulting Physician INTERVENTIONAL CARDIOLOGY 03/17/20 documented as of this encounter
--- OUTSIDE RECORDS SUMMARY | 2024-10-25 17:47 | XMS_ITS | Encounter Summary ---
Author Organization [facility] Address [address] [place] [address] Care Team Providers Care Scientific Diver Name Role Phone None, Provider Primary Care Provider Alecia Lubin CNM Primary Care Provider [phone] Heidy Mcdaniel NP Primary Care Provider [phone] José Chauhan MD Unavailable [phone], Provider Primary Care Provider UnavailKeisha Vieyra DNP Primary Care Provider Encounter Details Date Type Department Care Team (Late st Contact Info) Description 03/04/2008 Abstract [facility] Conversion , Generic Conversion, Social History [...] on filedocumented in this encounter Care Teams Scientific Diver Relationship Specialty Start Date End Date None, Provider, PCP - General 06/18/19 06/18/19 Alecia Hamilton CNM PCP - General ADVANCED PRACTICE PAPER SALES REPRESENTATIVE 06/19/1902/17 Heidy Mcdaniel NP [address] [place] [address] [phone] PCP - General NURSE PRACTITIONER 03/17/20 08/10/22 None, Provider, PCP - General UNKNOWN PHYSICIAN SPECIALTY 08/11/22 07/05/23 Keisha Carvajal DNP [address] [place] [address] PCP - General NURSE PRACTITIONER 07/06/23 José Chauhan MD [address] [place] [address] [phone] Consulting Physician INTERVENTIONAL CARDIOLOGY 03/17/20 documented as of this encounter
--- OUTSIDE RECORDS SUMMARY | 2024-10-25 17:47 | XMS_ITS | Encounter Summary ---
Author Organization [facility] Address [address] [place] [address] Care Team Providers Care Horseradish Maker Name Role Phone None, Provider Primary Care Provider Alecia Lubin CNM Primary Care Provider [phone] Heidy Mcdaniel NP Primary Care Provider [phone] José Chauhan MD Unavailable [phone], Provider Primary Care Provider UnavailKeisha Vieyra DNP Primary Care Provider [phone] Encounter Details Date Type Department Care Team (Late st Contact Info) Description 11/28/2005 Abstract [facility] Conversion , Generic Conversion, Social History [...] on filedocumented in this encounter Care Teams Horseradish Maker Relationship Specialty Start Date End Date None, Provider, PCP - General 06/18/19 06/18/19 Alecia Hamilton CNM PCP - General ADVANCED PRACTICE HOUSING ASSISTANT PROPERTY MANAGER 06/19/1902/17 Heidy Mcdaniel NP [address] [place] [phone] PCP - General NURSE PRACTITIONER 03/17/20 08/10/22 None, Provider, PCP - General UNKNOWN PHYSICIAN SPECIALTY 08/11/22 07/05/23 Keisha Carvajal DNP [address] [place] [address] PCP - General NURSE PRACTITIONER 07/06/23 José Chauhan MD [address] [place] [address] [phone] Consulting Physician INTERVENTIONAL CARDIOLOGY 03/17/20 documented as of this encounter
--- OUTSIDE RECORDS SUMMARY | 2024-10-25 17:47 | XMS_ITS | Encounter Summary ---
Author Organization [facility] Address [address] [place] [address] Care Team Providers Care Historical Society Director Name Role Phone None, Provider Primary Care Provider Alecia Lubin CNM Primary Care Provider [phone] Heidy Mcdaniel NP Primary Care Provider [phone] José Chauhan MD Unavailable [phone], Provider Primary Care Provider UnavailKeisha Vieyra DNP Primary Care Provider [phone] Encounter Details Date Type Department Care Team (Late st Contact Info) Description 06/11/2007 Abstract [facility] Conversion , Generic Conversion, Social History Tobacco [...] on filedocumented in this encounter Care Teams Historical Society Director Relationship Specialty Start Date End Date None, Provider, PCP - General 06/18/19 06/18/19 Alecia Hamilton CNM PCP - General ADVANCED PRACTICE COMPRESS MACHINE OPERATOR 06/19/1902/17 Heidy Mcdaniel NP [address] [place] [address] [phone] PCP - General NURSE PRACTITIONER 03/17/20 08/10/22 None, Provider, PCP - General UNKNOWN PHYSICIAN SPECIALTY 08/11/22 07/05/23 Keisha Carvajal DNP [address] [place] [address] PCP - General NURSE PRACTITIONER 07/06/23 José Chauhan MD [address] [place] [address] [phone] Consulting Physician INTERVENTIONAL CARDIOLOGY 03/17/20 documented as of this encounter
--- OUTSIDE RECORDS SUMMARY | 2024-10-25 17:47 | XMS_ITS | Encounter Summary ---
Author Organization [facility] Address [address] [place] [address] Care Team Providers Care Rhia Name Role Phone None, Provider Primary Care Provider Alecia Lubin CNM Primary Care Provider [phone] Heidy Mcdaniel NP Primary Care Provider [phone] José Chauhan MD Unavailable [phone], Provider Primary Care Provider UnavailKeisha Vieyra DNP Primary Care Provider [phone] Encounter Details Date Type Department Care Team (Late st Contact Info) Description 03/26/2008 Abstract [facility] Conversion , Generic Conversion, Social History Tobacco [...] on filedocumented in this encounter Care Teams Rhia Relationship Specialty Start Date End Date None, Provider, PCP - General 06/18/19 06/18/19 Alecia Hamilton CNM PCP - General ADVANCED PRACTICE UTILITY BILL COLLECTION CLERK 06/19/1902/17 Heidy Mcdaniel NP [address] [place] [address] [phone] PCP - General NURSE PRACTITIONER 03/17/20 08/10/22 None, Provider, PCP - General UNKNOWN PHYSICIAN SPECIALTY 08/11/22 07/05/23 Keisha Carvajal DNP [address] [place] [address] PCP - General NURSE PRACTITIONER 07/06/23 José Chauhan MD [address] [place] [address] [phone] Consulting Physician INTERVENTIONAL CARDIOLOGY 03/17/20 documented as of this encounter
--- OUTSIDE RECORDS SUMMARY | 2024-10-25 17:47 | XMS_ITS | Referral Summary ---
Author Organization [facility] Address [address] [place] [address] Care Team Providers Care Nocturnist Physician Name Role Phone Unavailable Primary Care Provider Unavailabl e Source Comments [facility],non-owned Affiliates and Associated Physician Practices is amultiple site organization consisting of ambulatory clinics and hospital sitesin [place], [place], [place] and [place]. This disclosure is being madepursuant to the Care Everywhere program and may not contain all information available regarding this patient. Last updated 18.[facility] Allergies No known active allergies Medications * [...]
--- OUTSIDE RECORDS SUMMARY | 2024-10-25 17:47 | XMS_ITS | Encounter Summary ---
Author Organization [facility] Address [address] [place] [address] Care Team Providers Care Concrete Plant Laborer Name Role Phone None, Provider Primary Care Provider Alecia Lubin CNM Primary Care Provider [phone] Heidy Mcdaniel NP Primary Care Provider [phone] José Chauhan MD Unavailable [phone], Provider Primary Care Provider UnavailKeisha Vieyra DNP Primary Care Provider [phone] Encounter Details Date Type Department Care Team (Late st Contact Info) Description 10/22/[address] [facility] Conversion [address] [place] [address] , Generic Conversion, Social History Tobacco Use [...] on filedocumented in this encounter Care Teams Concrete Plant Laborer Relationship Specialty Start Date End Date None, Provider, PCP - General 06/18/19 06/18/19 Alecia Hamilton CNM PCP - General ADVANCED PRACTICE ENDOSCOPY TECHNICIAN 06/19/1902/17 Heidy Mcdaniel NP [address] [place] [address] [phone] PCP - General NURSE PRACTITIONER 03/17/20 08/10/22 None, Provider, PCP - General UNKNOWN PHYSICIAN SPECIALTY 08/11/22 07/05/23 Keisha Carvajal DNP [address] [place] [address] PCP - General NURSE PRACTITIONER 07/06/23 José Chauhan MD [address] [place] [phone] Consulting Physician INTERVENTIONAL CARDIOLOGY 03/17/20 documented as of this encounter
--- OUTSIDE RECORDS SUMMARY | 2024-10-25 17:47 | XMS_ITS | Encounter Summary ---
Author Organization [facility] Address [address] [place] [address] Care Team Providers Care Tennis Centre Manager Name Role Phone None, Provider Primary Care Provider Alecia Lubin CNM Primary Care Provider Heidy Mcdaniel NP Primary Care Provider [phone] José Chauhan MD Unavailable [phone], Provider Primary Care Provider UnavailKeisha Vieyra DNP Primary Care Provider [phone] Encounter Details Date Type Department Care Team (Late st Contact Info) Description 07/11/2005 Abstract [facility] Conversion , Generic Conversion, Social [...] on filedocumented in this encounter Care Teams Tennis Centre Manager Relationship Specialty Start Date End Date None, Provider, PCP - General 06/18/19 06/18/19 Alecia Hamilton CNM PCP - General ADVANCED PRACTICE ENT NURSE 06/19/1902/17 Heidy Mcdaniel NP [address] [place] [phone] PCP - General NURSE PRACTITIONER 03/17/20 08/10/22 None, Provider, PCP - General UNKNOWN PHYSICIAN SPECIALTY 08/11/22 07/05/23 Keisha Carvajal DNP [address] [place] [address] PCP - General NURSE PRACTITIONER 07/06/23 José Chauhan MD [address] [place] [address] [phone] Consulting Physician INTERVENTIONAL CARDIOLOGY 03/17/20 documented as of this encounter
--- OUTSIDE RECORDS SUMMARY | 2024-10-25 17:47 | XMS_ITS | Encounter Summary ---
Author Organization [facility] Address [address] [place] [address] Care Team Providers Care Signal Person Name Role Phone None, Provider Primary Care Provider Alecia Lubin CNM Primary Care Provider [phone] Heidy Mcdaniel NP Primary Care Provider [phone] José Chauhan MD Unavailable [phone], Provider Primary Care Provider UnavailKeisha Vieyra DNP Primary Care Provider [phone] Encounter Details Date Type Department Care Team (Late st Contact Info) Description 06/25/2007 Abstract [email or web address] Conversion , Generic Conversion, Social History Tobacco [...] on filedocumented in this encounter Care Teams Signal Person Relationship Specialty Start Date End Date None, Provider, PCP - General 06/18/19 06/18/19 Alecia Hamilton CNM PCP - General ADVANCED PRACTICE OPTICAL LABORATORY MANAGER 06/19/1902/17 Heidy Mcdaniel NP [address] [place] [phone] PCP - General NURSE PRACTITIONER 03/17/20 08/10/22 None, Provider, PCP - General UNKNOWN PHYSICIAN SPECIALTY 08/11/22 07/05/23 Keisha Carvajal DNP [address] [place] [address] PCP - General NURSE PRACTITIONER 07/06/23 José Chauhan MD [address] [place] [address] [phone] Consulting Physician INTERVENTIONAL CARDIOLOGY 03/17/20 documented as of this encounter
--- OUTSIDE RECORDS SUMMARY | 2024-10-25 17:47 | XMS_ITS | Clinical Summary ---
Author Organization [facility] Address [address] [place] [address] Care Team Providers Care Logging Equipment Mechanic Name Role Phone Unavailable Primary Care Provider Unavailabl e Source Comments [facility],non-owned Affiliates and Associated Physician Practices is amultiple site organization consisting of ambulatory clinics and hospital sitesin [place], [place], [place] and [place]. This disclosure is being madepursuant to the Care Everywhere program and may not contain all information available regarding this patient. Last updated 18.[employer] [facility] Allergies No known active allergies Medications * [...]
--- OUTSIDE RECORDS SUMMARY | 2024-10-25 17:47 | XMS_ITS | Encounter Summary ---
Author Organization [facility] Address [address] [place] [address] Care Team Providers Care Press Operator Meat Name Role Phone None, Provider Primary Care Provider Alecia Lubin CNM Primary Care Provider [phone] Heidy Mcdaniel NP Primary Care Provider [phone] José Chauhan MD Unavailable [phone], Provider Primary Care Provider UnavailKeisha Vieyra DNP Primary Care Provider Encounter Details Date Type Department Care Team (Late st Contact Info) Description 04/01/2008 Abstract [facility] Conversion , Generic Conversion, Social [...] on filedocumented in this encounter Care Teams Press Operator Meat Relationship Specialty Start Date End Date None, Provider, PCP - General 06/18/19 06/18/19 Alecia Hamilton CNM PCP - General ADVANCED PRACTICE PAPER CONSERVATOR 06/19/1902/17 Heidy Mcdaniel NP [address] [place] [phone] PCP - General NURSE PRACTITIONER 03/17/20 08/10/22 None, Provider, PCP - General UNKNOWN PHYSICIAN SPECIALTY 08/11/22 07/05/23 Keisha Carvajal DNP [address] [place] [address] PCP - General NURSE PRACTITIONER 07/06/23 José Chauhan MD [address] [place] [address] [phone] Consulting Physician INTERVENTIONAL CARDIOLOGY 03/17/20 documented as of this encounter
--- OUTSIDE RECORDS SUMMARY | 2024-10-25 17:47 | XMS_ITS | Encounter Summary ---
Author Organization [facility] Address [address] [place] [address] Care Team Providers Care Restaurant Expeditor Name Role Phone None, Provider Primary Care Provider Alecia Lubin CNM Primary Care Provider [phone] Heidy Mcdaniel NP Primary Care Provider [phone] José Chahuan MD Unavailable [phone], Provider Primary Care Provider UnavailKeisha Vieyra DNP Primary Care Provider [phone] Encounter Details Date Type Department Care Team (Late st Contact Info) Description 10/07/2004 Abstract [facility] Conversion , Generic Conversion, Social History Tobacco [...] on filedocumented in this encounter Care Teams Restaurant Expeditor Relationship Specialty Start Date End Date None, Provider, PCP - General 06/18/19 06/18/19 Alecia Hamilton CNM PCP - General ADVANCED PRACTICE FEEDER LOADER 06/19/1902/17 Heidy Mcdaniel NP [address] [place] [address] [phone] PCP - General NURSE PRACTITIONER 03/17/20 08/10/22 None, Provider, PCP - General UNKNOWN PHYSICIAN SPECIALTY 08/11/22 07/05/23 Keisha Carvajal DNP [address] [place] [address] PCP - General NURSE PRACTITIONER 07/06/23 José Chauhan MD [address] [place] [address] [phone] Consulting Physician INTERVENTIONAL CARDIOLOGY 03/17/20 documented as of this encounter
--- OUTSIDE RECORDS SUMMARY | 2024-10-25 17:47 | XMS_ITS | Encounter Summary ---
Author Organization [facility] Address [address] [place] [address] Care Team Providers Care Hyster Driver Name Role Phone None, Provider Primary Care Provider Alecia Lubin CNM Primary Care Provider [phone] Heidy Mcdaniel NP Primary Care Provider [phone] José Chauhan MD Unavailable [phone], Provider Primary Care Provider UnavailKeisha Vieyra DNP Primary Care Provider [phone] Encounter Details Date Type Department Care Team (Late st Contact Info) Description 03/09/2007 Abstract [facility] Conversion , [...] on filedocumented in this encounter Care Teams Hyster Driver Relationship Specialty Start Date End Date None, Provider, PCP - General 06/18/19 06/18/19 Alecia Hamilton CNM PCP - General ADVANCED PRACTICE STERILIZATION TECH 06/19/1902/17 Heidy Mcdaniel NP [address] [place] [address] [phone] PCP - General NURSE PRACTITIONER 03/17/20 08/10/22 None, Provider, PCP - General UNKNOWN PHYSICIAN SPECIALTY 08/11/22 07/05/23 Keisha Carvajal DNP [address] [place] [address] PCP - General NURSE PRACTITIONER 07/06/23 José Chauhan MD [address] [place] [address] [phone] Consulting Physician INTERVENTIONAL CARDIOLOGY 03/17/20 documented as of this encounter
--- OUTSIDE RECORDS SUMMARY | 2024-10-25 17:47 | XMS_ITS | Encounter Summary ---
Author Organization [facility] Address [address] [place] [address] Care Team Providers Care General Counselor Name Role Phone None, Provider Primary Care Provider Alecia Lubin CNM Primary Care Provider [phone] Heidy Mcdaniel NP Primary Care Provider [phone] José Chauhan MD Unavailable [phone], Provider Primary Care Provider UnavailKeisha Vieyra DNP Primary Care Provider Encounter Details Date Type Department Care Team (Late st Contact Info) Description 12/01/2006 Abstract [facility] Conversion , Generic Conversion, Social [...] on filedocumented in this encounter Care Teams General Counselor Relationship Specialty Start Date End Date None, Provider, PCP - General 06/18/19 06/18/19 Alecia Hamilton CNM PCP - General ADVANCED PRACTICE SAFETY COORDINATOR 06/19/1902/17 Heidy Mcdaniel NP [address] [place] [address] [phone] PCP - General NURSE PRACTITIONER 03/17/20 08/10/22 None, Provider, PCP - General UNKNOWN PHYSICIAN SPECIALTY 08/11/22 07/05/23 Keisha Carvajal DNP [address] [place] [address] PCP - General NURSE PRACTITIONER 07/06/23 José Chauhan MD [address] [place] [address] [phone] Consulting Physician INTERVENTIONAL CARDIOLOGY 03/17/20 documented as of this encounter
--- OUTSIDE RECORDS SUMMARY | 2024-10-25 17:47 | XMS_ITS | Encounter Summary ---
Author Organization [facility] Address [address] [place] [address] Care Team Providers Care Multiple Games Dealer Name Role Phone None, Provider Primary Care Provider Alecia Lubin CNM Primary Care Provider [phone] Heidy Mcdaniel NP Primary Care Provider [phone] José Chauhan MD Unavailable [phone], Provider Primary Care Provider UnavailKeisha Vieyra DNP Primary Care Provider [phone] Encounter Details Date Type Department Care Team (Late st Contact Info) Description 01/17/1996 Abstract [facility] Conversion , Generic Conversion, Social History Tobacco [...] on filedocumented in this encounter Care Teams Multiple Games Dealer Relationship Specialty Start Date End Date None, Provider, PCP - General 06/18/19 06/18/19 Alecia Hamilton CNM PCP - General ADVANCED PRACTICE MANAGER PE 06/19/1902/17 Heidy Mcdaniel NP [address] [place] [address] [phone] PCP - General NURSE PRACTITIONER 03/17/20 08/10/22 None, Provider, PCP - General UNKNOWN PHYSICIAN SPECIALTY 08/11/22 07/05/23 Keisha Carvajal DNP [address] [place] [address] PCP - General NURSE PRACTITIONER 07/06/23 José Chauhan MD [address] [place] [address] [phone] Consulting Physician INTERVENTIONAL CARDIOLOGY 03/17/20 documented as of this encounter
--- OUTSIDE RECORDS SUMMARY | 2024-10-25 17:47 | XMS_ITS | Encounter Summary ---
Author Organization [facility] Address [address] [place] [address] Care Team Providers Care Lithographic Platemaker Name Role Phone None, Provider Primary Care Provider Alecia Lubin CNM Primary Care Provider [phone] Heidy Mcdaniel NP Primary Care Provider [phone] José Chauhan MD Unavailable [phone], Provider Primary Care Provider UnavailKeisha Vieyra DNP Primary Care Provider [phone] Encounter Details Date Type Department Care Team (Late st Contact Info) Description 12/17/2004 Abstract [facility] Conversion , Generic Conversion, Social History [...] on filedocumented in this encounter Care Teams Lithographic Platemaker Relationship Specialty Start Date End Date None, Provider, PCP - General 06/18/19 06/18/19 Alecia Hamilton CNM PCP - General ADVANCED PRACTICE SERVICES ENGINEER 06/19/1902/17 Heidy Mcdaniel NP [address] [place] [phone] PCP - General NURSE PRACTITIONER 03/17/20 08/10/22 None, Provider, PCP - General UNKNOWN PHYSICIAN SPECIALTY 08/11/22 07/05/23 Keisha Carvajal DNP [address] [place] [address] PCP - General NURSE PRACTITIONER 07/06/23 José Chauhan MD [address] [place] [address] [phone] Consulting Physician INTERVENTIONAL CARDIOLOGY 03/17/20 documented as of this encounter
--- OUTSIDE RECORDS SUMMARY | 2024-10-25 17:47 | XMS_ITS | Encounter Summary ---
Author Organization [facility] Address [address] [place] [address] Care Team Providers Care Electrolytic De Scaler Name Role Phone None, Provider Primary Care Provider Alecia Lubin CNM Primary Care Provider [phone] Heidy Mcdaniel NP Primary Care Provider [phone] José Chauhan MD Unavailable [phone], Provider Primary Care Provider UnavailKeisha Vieyra DNP Primary Care Provider [phone] Encounter Details Date Type Department Care Team (Late st Contact Info) Description 08/29/2007 Abstract [facility] Conversion , Generic Conversion, Social [...] on filedocumented in this encounter Care Teams Electrolytic De Scaler Relationship Specialty Start Date End Date None, Provider, PCP - General 06/18/19 06/18/19 Alecia Hamilton CNM PCP - General ADVANCED PRACTICE MAMMALOGY TEACHER 06/19/1902/17 Heidy Mcdaniel NP [address] [place] [address] [phone] PCP - General NURSE PRACTITIONER 03/17/20 08/10/22 None, Provider, PCP - General UNKNOWN PHYSICIAN SPECIALTY 08/11/22 07/05/23 Keisha Carvajal DNP [address] [place] [address] PCP - General NURSE PRACTITIONER 07/06/23 José Chauhan MD [address] [place] [address] [phone] Consulting Physician INTERVENTIONAL CARDIOLOGY 03/17/20 documented as of this encounter
--- OUTSIDE RECORDS SUMMARY | 2024-10-25 17:47 | XMS_ITS | Clinical Summary ---
Author Organization [facility] Address [address] [place] [address] Care Team Providers Care Quality Inspector Name Role Phone José Chauhan MD Unavailable [phone] Keisha Carvajal DNP Primary Care Provider [phone] Allergies No known active allergies Medications multi vitamin/minerals tablet Take 1 tablet by mouth daily. Active venlafaxine XR (EFFEXOR-XR) 75 MG 24 hr capsule TAKE 1 CAPSULE BY MOUTH ONCE A DAY (AFTER COMPLETING 37.5MG WEEK DOSE) 2 Active ENSKYCE 0.15-30 MG-MCG tabletIndications :Oral contraceptive use Take 1 tablet by mouth daily. 28 tablet 2 Active naproxen (NAPROSYN) 500 MG tablet Take 1 tablet (500 mg total) by mouth 2 (two) times daily with meals. 20 tablet 3 Active Active Problems Problem Noted Date Diagnosed Date Palpitations 03/17/2020 Chest pressure 03/17/2020 Dizziness 03/17/2020 Fatigue 03/17/2020 History of 2 sections 04/05/2018 Overview (12/03/2020): Overview: History of two prior CD First for face presentation Second for AoDil versus physician concern Resolved Problems Problem Noted Date Diagnosed Date Resolved Date Acute cholecystitis 06/19/2019 06/19/20 19 Immunizations Name Administration Dates Next Due Tdap (Adacel) 11/20/2016 Family History Medical History Relation Comments Heart Attack Father Hyperlipidemia Father Hypertension Father Stroke Father Valve Disease Mother Stent Cardiac Paternal Grandfather Stent Cardiac Paternal Grandmother Stroke Paternal Grandmother Relation Status Comments Father Maternal Grandfather Maternal Grandmother Mother Paternal Grandfather Paternal Grandmother Social History Tobacco Use Types Packs/Day Years Used Date Smoking Tobacco: Former Cigarettes 0.5 15 Electronic Cigarettes Smokeless Tobacco: Never Tobacco Cessation:Counseling Given: No Alcohol Use Standard Drinks/Week Comments Yes 0 (1 standard drink = 0.6 oz pur e alcohol) 1-2 drinks per week Comments No Sex and Gender Information Value Date Recorded Sex Assigned at Not on file Legal Sex Female 4:12 PM CDT Gender Identity Not on file Sexual Orientation Not on file Last Filed Vital Signs Vital Sign Reading Time Taken Comments Blood Pressure 101/65 07/06/2023 11:35 AM CDT Pulse 62 07/06/2023 12:25 PM CDT Temperature 36.7 C (98 F) 07/06/2023 9:06 AM CDT Respiratory Rate 18 07/06/2023 12:25 PM CDT Oxygen Saturation 99% 07/06/2023 9:06 AM CDT Inhaled Oxygen Concentration - - Weight 74.8 kg (165 lb) 07/06/2023 9:06 AM CDT Height 162.6 cm (5' 4 ) 07/06/2023 9:06 AM CDT Body Mass Index 28.32 07/06/2023 9:06 AM CDT Plan of Treatment Health Maintenance Due Date Last Done Comments Cervical Cancer Screening Pap Smear (Age 30 to 64) Every 3 Years 1990 Annual Physical 1993 Hepatitis C 2008 Cervical Cancer Screening Pap with HPV Testing (Age 30 to 64) Every 5 Years 2020 Cervical Cancer Screening with HPV 2020 COVID-19 Vaccine (2023- season) 2024 Influenza Adult (#1) 2024 DTaP, Tdap and Td Vaccines (8 - Td or Tdap) 04/10/2028 04/10/2018, 11/20/2016, 05/23/2006, Additional history exists Hepatitis B Vaccines Completed 12/12/2005, 07/11/2005, 06/10/2005 HPV Vaccines Completed 04/22/2008, 12/17, 09/13/2007 Meningococcal B Vaccine Aged Out No l onger eligible based on patient's age to complete this topic Meningococcal Vaccine Aged Out No jamel judy eligible based on patient's age to complete this topic Pneumococcal Vaccine: Pediatrics (0 to 5 Years) and At-Risk Patients (6 to 64 Years) Aged Out No longer eligible based on patient's age to complete this topic RSV Immunizations Under 20 Months Aged Out No longer eligible based on patient's age to complete this topic Insurance [facility] AETNA Advance Directives Documents on File Type Date Recorded Patient Credit Coordinator Expl anation Advance Directives and Living Will 11/17/2016 12:00 AM ADVANCED DIRECTIVES * Full Code (Latest Code Status on File) Date Activated Date Inactivated Comments 06/19/2019 1:41 AM 06/20/2019 2:01 PM Care Teams Quality Inspector Relationship Specialty Start Date End Date Keisha Carvajal DNP [address] [place] [address] PCP - General NURSE PRACTITIONER 07/06/23 José Chauhan MD Consulting Physician INTERVENTIONAL CARDIOLOGY 03/17/20
--- OUTSIDE RECORDS SUMMARY | 2024-10-25 17:47 | XMS_ITS | Encounter Summary ---
Author Organization [facility] Address [address] [place] [address] Care Team Providers Care Filter Press Pumper Name Role Phone None, Provider Primary Care Provider Alecia Lubin CNM Primary Care Provider [phone] Heidy Mcdaniel NP Primary Care Provider [phone] José Chauhan MD Unavailable [phone] None, Provider Primary Care Provider UnavailKeisha Vieyra DNP Primary Care Provider [phone] Encounter Details Date Type Department Care Team (Late st Contact Info) Description 06/27/2006 Abstract [facility] Conversion , Generic [...] on filedocumented in this encounter Care Teams Filter Press Pumper Relationship Specialty Start Date End Date None, Provider, PCP - General 06/18/19 06/18/19 Alecia Hamilton CNM PCP - General ADVANCED PRACTICE HOSPITAL MONITOR 06/19/1902/17 Heidy Mcdaniel NP [address] [place] [phone] PCP - General NURSE PRACTITIONER 03/17/20 08/10/22 None, Provider, PCP - General UNKNOWN PHYSICIAN SPECIALTY 08/11/22 07/05/23 Keisha Carvajal DNP [address] [place] [address] PCP - General NURSE PRACTITIONER 07/06/23 José Chauhan MD [address] [place] [address] [phone] Consulting Physician INTERVENTIONAL CARDIOLOGY 03/17/20 documented as of this encounter
--- OUTSIDE RECORDS SUMMARY | 2024-10-25 17:47 | XMS_ITS | Encounter Summary ---
Author Organization [facility] Address [address] [place] [address] Care Team Providers Care Traveling Phlebotomist Name Role Phone None, Provider Primary Care Provider Alecia Lubin CNM Primary Care Provider [phone] Heidy Mcdaniel NP Primary Care Provider [phone] José Chauhan MD Unavailable [phone], Provider Primary Care Provider UnavailKeisha Vieyra DNP Primary Care Provider [phone] Encounter Details Date Type Department Care Team (Late st Contact Info) Description 11/11/2005 Abstract [facility] Conversion , Generic Conversion, Social History [...] on filedocumented in this encounter Care Teams Traveling Phlebotomist Relationship Specialty Start Date End Date None, Provider, PCP - General 06/18/19 06/18/19 Alecia Hamilton CNM PCP - General ADVANCED PRACTICE PACKAGING CLERK 06/19/1902/17 Heidy Mcdaniel NP [address] [place] [phone] PCP - General NURSE PRACTITIONER 03/17/20 08/10/22 None, Provider, PCP - General UNKNOWN PHYSICIAN SPECIALTY 08/11/22 07/05/23 Keisha Carvajal DNP [address] [place] [address] PCP - General NURSE PRACTITIONER 07/06/23 José Chauhan MD [address] [place] [address] [phone] Consulting Physician INTERVENTIONAL CARDIOLOGY 03/17/20 documented as of this encounter
--- OUTSIDE RECORDS SUMMARY | 2024-10-25 17:47 | XMS_ITS | Encounter Summary ---
Author Organization [facility] Address [address] [place] [address] Care Team Providers Care Produce Sorter Name Role Phone None, Provider Primary Care Provider Alecia Lubin CNM Primary Care Provider [phone] Heidy Mcdaniel NP Primary Care Provider [phone] José Chauhan MD Unavailable [phone], Provider Primary Care Provider UnavailKeisha Vieyra DNP Primary Care Provider [phone] Encounter Details Date Type Department Care Team (Late st Contact Info) Description 02/23/[address] [facility] Conversion [address] [place] [address] , Generic Conversion, Social History Tobacco Use [...] on filedocumented in this encounter Care Teams Produce Sorter Relationship Specialty Start Date End Date None, Provider, PCP - General 06/18/19 06/18/19 Alecia Hamilton CNM PCP - General ADVANCED PRACTICE REPORTS DEVELOPER 06/19/1902/17 Heidy Mcdaniel NP [address] [place] [address] [phone] PCP - General NURSE PRACTITIONER 03/17/20 08/10/22 None, Provider, PCP - General UNKNOWN PHYSICIAN SPECIALTY 08/11/22 07/05/23 Keisha Carvajal DNP [address] [place] [address] PCP - General NURSE PRACTITIONER 07/06/23 José Chauhan MD [address] [place] [phone] Consulting Physician INTERVENTIONAL CARDIOLOGY 03/17/20 documented as of this encounter
--- OUTSIDE RECORDS SUMMARY | 2024-10-25 17:47 | XMS_ITS | Encounter Summary ---
Author Organization [facility] Address [address] [place] [address] Care Team Providers Care Grants Assistant Name Role Phone None, Provider Primary Care Provider Alecia Lubin CNM Primary Care Provider [phone] Heidy Mcdaniel NP Primary Care Provider [phone] José Chauhan MD Unavailable [phone] None, Provider Primary Care Provider UnavailKeisha Vieyra DNP Primary Care Provider [phone] Encounter Details Date Type Department Care Team (Late st Contact Info) Description 07/24/2007 Abstract [facility] Conversion , Generic Conversion, Social History Tobacco [...] on filedocumented in this encounter Care Teams Grants Assistant Relationship Specialty Start Date End Date None, Provider, PCP - General 06/18/19 06/18/19 Alecia Hamilton CNM PCP - General ADVANCED PRACTICE RADIAL SAW OPERATOR 06/19/1902/17 Heidy Mcdaniel NP [address] [place] [phone] PCP - General NURSE PRACTITIONER 03/17/20 08/10/22 None, Provider, PCP - General UNKNOWN PHYSICIAN SPECIALTY 08/11/22 07/05/23 Keisha Carvajal DNP [address] [place] [address] PCP - General NURSE PRACTITIONER 07/06/23 José Chauhan MD [address] [place] [address] [phone] Consulting Physician INTERVENTIONAL CARDIOLOGY 03/17/20 documented as of this encounter
--- OUTSIDE RECORDS SUMMARY | 2024-10-25 17:47 | XMS_ITS | Encounter Summary ---
Author Organization [facility] Address [address] [place] [address] Care Team Providers Care Radio Repair Teacher Name Role Phone None, Provider Primary Care Provider Alecia Lubin CNM Primary Care Provider [phone] Heidy Mcdaniel NP Primary Care Provider [phone] José Chauhan MD Unavailable [phone], Provider Primary Care Provider UnavailKeisha Vieyra DNP Primary Care Provider [phone] Encounter Details Date Type Department Care Team (Late st Contact Info) Description 09/22/2004 Abstract [facility] Conversion , Generic Conversion, Social [...] on filedocumented in this encounter Care Teams Radio Repair Teacher Relationship Specialty Start Date End Date None, Provider, PCP - General 06/18/19 06/18/19 Alecia Hamilton CNM PCP - General ADVANCED PRACTICE SECURITY DIRECTOR 06/19/1902/17 Heidy Mcdaniel NP [address] [place] [phone] PCP - General NURSE PRACTITIONER 03/17/20 08/10/22 None, Provider, PCP - General UNKNOWN PHYSICIAN SPECIALTY 08/11/22 07/05/23 Keisha Carvajal DNP [address] [place] [address] PCP - General NURSE PRACTITIONER 07/06/23 José Chauhan MD [address] [place] [phone] Consulting Physician INTERVENTIONAL CARDIOLOGY 03/17/20 documented as of this encounter
--- NOTE | 2024-10-25 17:53 | ED_ITS ---
HPI - General Adult General Chief complaint: Weakness Stated complaint: Near Syncope History of Present Illness HPI narrative: 34 YEARS OLD WHITE FEMALE WITH HISTORY OF ANXIETY / DEPRESSION, IN THE N[employer]SING [employer]CHO[employer], YESTERDAY WAS DONATING BLOOD, 45 MINUTE LATER GOT DIZZY AND BLACKED OUT FOR LESS THAN 1 MINUTE. TODAY PATIENT WAS WALKING AT [employer] AND FELT LITTLE LIGHTHEADEDNESS AND SLIGHT DIZZINESS LASTED FOR FEW SECONDS. PATIENT'S CONCERN ABOUT THE POSSIBILITY OF GIVING TOO MUCH BLOOD YESTERDAY, WAS THINKING ABOUT IT ALL NIGHT LONG. CURRENTLY PATIENT DENYING ANY FEVER, CHILLS, NAUSEA, VOMITING, HEADACHE, LIGHTHEADEDNESS, DIZZINESS, CHEST PAIN, SHORTNESS OF BREATH OR ANY OTHER SYMPTOMS. Related Data Home Medications ?Medication ?Instructions ?Recorded ?Confirmed ?Last Taken ?Type desogestrel 0.15 mg-ethinyl 1 tablet PO DAILY 06/07/24 06/07/24 Unknown History estradiol 0.03 mg tablet (Apri) venlafaxine 75 mg capsule,extended 37.5 mg PO DAILY 06/07/24 06/07/24 Unknown History release 24 hr Allergies Allergy/AdvReac Type Severity Reaction Status Date / Time No Known Allergies Allergy Verified 10/25/24 17:15 Review of Systems 2 Review of Systems: All systems reviewed & are unremarkable except as noted in HPI and below Exam 2 Narrative: GENERAL APPEARANCE: WELL-DEVELOPED, WELL-NOURISHED SKIN: NORMAL COLOR HEAD: NORMOCEPHALIC, NONTRAUMATIC EYES: CLEAR CONJUNCTIVA ENT: OROPHARYNX NORMAL, EARS NORMAL, NOSE NORMAL NECK: SUPPLE, NONTENDER CHEST AND RESPIRATORY: AIRWAY PATENT, NO RESPIRATORY DISTRESS, NO ACCESSORY MUSCLE USE HEART: REGULAR RATE/RHYTHM ABDOMEN: SOFT, NONTENDER, NO ORGANOMEGALY, QUIET BOWEL SOUNDS VASCULAR: NORMAL PERIPHERAL PULSES, NORMAL CAPILLARY REFILL. MUSCULOSKELETAL: NORMAL RANGE OF MOTION, NONTENDER BACK NEUROLOGIC: ALERT AND ORIENTED ?3, CLINICAL PSYCHOLOGIST LICENSED IS NORMAL TESTED, NO GROSS MOTOR DEFICIT Course Vital Signs Vital signs: Vital Signs Temperature 36.6 C 10/25/24 17:09 Pulse Rate 78 10/25/24 17:09 Respiratory Rate 16 10/25/24 17:09 Blood Pressure 127/86 10/25/24 17:09 Pulse Oximetry 99 10/25/24 17:09 Oxygen Delivery Room Air 10/25/24 17:09 Temperature 36.6 C 10/25/24 17:09 Pulse Rate 68 10/25/24 18:00 Respiratory Rate 17 10/25/24 18:00 Blood Pressure 117/76 10/25/24 18:00 Pulse Oximetry 98 10/25/24 18:00 Oxygen Delivery Room Air 10/25/24 18:00 Medical Decision Making MDM Narrative Medical decision making narrative: DIFFERENTIAL DIAGNOSIS INCLUDE ANXIETY SECONDARY TO VASOVAGAL YESTERDAY, HYPOTENSION, ELECTROLYTE IMBALANCE, URINARY TRACT INFECTION, ANEMIA BLOOD WORKUP TODAY INCLUDES CBC, CMP SHOWED ELEVATED BILIRUBIN 2.9, ALT 66, ALKALINE PHOSPHATASE 122, NO OLD RECORD FOR COMPARISON. OTHERWISE INSIGNIFICANT PATIENT TESTED NEGATIVE FOR RSV, COVID AND INFLUENZA URINE TEST SHOWED NO SIGN OF INFECTION. DISCHARGE WITH ANXIETY AND VASOVAGAL REACTION THE PT WAS DISCHARGED TO HOME.THE PT,S CONDITION UPON DISCHARGE WAS FAIR,EDUCATION WAS PROVIDED TO THE PT IN REFERENCE TO THE FINAL IMPRESSION,DISCHARGE STUDY RESULTS,TREATMENT,PROGNOSIS AND NEED FOR FOLLOW UP . Differential Diagnosis Differential Diagnosis: ABOVE Vital Signs Vital Signs: Vital Signs Temperature 36.6 C 10/25/24 17:09 Pulse Rate 78 10/25/24 17:09 Respiratory Rate 16 10/25/24 17:09 Blood Pressure 127/86 10/25/24 17:09 Pulse Oximetry 99 10/25/24 17:09 Oxygen Delivery Room Air 10/25/24 17:09 Temperature 36.6 C 10/25/24 17:09 Pulse Rate 68 10/25/24 18:00 Respiratory Rate 17 10/25/24 18:00 Blood Pressure 117/76 10/25/24 18:00 Pulse Oximetry 98 10/25/24 18:00 Oxygen Delivery Room Air 10/25/24 18:00 Lab Data 10/25/24 17:26 10/25/24 17:26 Labs: Lab Results 10/25/24 10/25/24 10/25/24 Range/Units 17:20 17:26 18:11 WBC 7.8 (4.8-10.8) K/mm3 RBC 4.44 (4.20-5.40) M/mm3 Hgb 13.0 (12.0-15.0) g/dL Hct 38.6 (35.0-49.0) % MCV 86.9 (78.0-102.0) fL MCH 29.3 (27.0-31.0) pg MCHC 33.7 (32-36) g/dL RDW 12.7 (11.6-14.4) % Plt Count 276 (150-420) K/mm3 MPV 9.4 (9.2-11.8) fl Immature Gran % (Auto) 0.3 H (0.0-0.0) % Neut % (Auto) 55.5 (50.0-70.0) % Lymph % (Auto) 34.4 (18.0-42.0) % Ritchie % (Auto) 9.2 (2.0-11.0) % Eos % (Auto) 0.3 L (1.0-6.0) % Baso % (Auto) 0.3 (0.0-1.0) % Lymph # (Auto) 2.68 (1.10-4.50) K/mm3 Ritchie # (Auto) 0.72 (0.10-0.90) K/mm3 Eos # (Auto) 0.02 (0.02-0.50) K/mm3 Baso # (Auto) 0.02 (0.00-0.10) K/mm3 Abs Immat Gran (auto) 0.02 H (0.00-0.00) K/mm3 Absolute Neuts (auto) 4.34 (1.70-7.20) K/mm3 Absolute Nucleated RBC 0.00 (0.00-0.00) K/mm3 Nucleated RBC % 0.0 (0-0.0) % Sodium 145 (136-145) mmol/L Potassium 4.0 (3.5-5.1) mmol/L Chloride 108 (98-108) mmol/L Carbon Dioxide 27 (21-32) mmol/L Anion Gap 10 (4-12) mmol/L BUN 11 (7-18) mg/dL Creatinine 0.70 (0.55-1.02) mg/dL Estim Creat Clear Calc 99 ml/min Estimated GFR > 60 (59 - ) Glucose 70 (70-99) mg/dL Calculated Osmolality 316 H (285-295) mOsm/kg Calcium 9.1 (8.5-10.1) mg/dL Total Bilirubin 2.9 H (0.00-1.00) mg/dL AST 28 (15-37) U/L ALT 66 H (14-59) U/L Alkaline Phosphatase 122 H (46-116) U/L Total Protein 7.7 (6.4-8.2) g/dL Albumin 3.8 (3.4-5.0) g/dL Urine Color Light yellow (Yellow) Urine Appearance Clear (Clear) Urine pH 7.0 (5.0-8.0) Ur Specific [place] 1.015 (1.010-1.020) Urine Protein Negative (Negative) Urine Glucose (UA) Negative (Negative) Urine Ketones Negative (Negative) Ur Blood (Man) 3+ H (Negative) Urine Nitrate Negative (Negative) Urine Bilirubin Negative (Negative) Urine Urobilinogen 0.2 (0.2-1.0) mg/dL Leukocyte Esterase Rfl Trace H (Negative) MARILEE/UL Urine RBC 21-50 H (0-2) /hpf Urine WBC 4-6 H (0-3) /hpf Ur Squamous Epith Cells Rare (Few) /hpf Urine Bacteria 1+ H (None) /hpf Influenza A (RT-PCR) Negative (Negative) Influenza B (RT-PCR) Negative (Negative) RSV (RT-PCR) Negative (Negative) SARS-CoV-2 RNA (RT-PCR) Negative (Negative) Critical Care Time Critical Care Time Critical Care Time: No Discharge Plan Discharge Clinical Impression: Vaso-vagal reaction Patient Disposition: Home, Self-Care Condition: Stable Instructions: Syncope in Older Adults (ED) Additional Instructions: RETURN IF SYMPTOMS ARE WORSENING , CALL YOUR FAMILY PHYSICIAN FOR APPOINTMENT, TAKE TYLENOL NEEDED FOR ACHES AND PAIN, CONTINUE HOME MEDICATIONS. Patient Language: Vincentian Prescriptions: No Action venlafaxine 75 mg capsule,extended release 24hr 37.5 mg PO DAILY desogestrel-ethinyl estradiol [Apri] 0.15-0.03 mg tablet 1 tablet PO DAILY sulfamethoxazole-trimethoprim [Bactrim DS] 800-160 mg tablet 1 tablet PO Q12H 7 Days Qty: 14 0RF Follow-up/Referrals: Alena,Keisha [Other]
[2024-10-25 18:00] VITALS: BP 117/76; PULSE 68; RESP 17; O2SAT 98
[2024-10-25 18:00] LABS: Aspartate Amino Transferase 28 U/L (15-37)
[2024-10-25 18:10] LABS: SARS-CoV-2 RNA PCR Negative (Negative)
[2024-10-25 18:11] LABS: Influenza A QL RT-PCR Negative (Negative); Influenza B QL RT-PCR Negative (Negative); RSV RNA, RT-PCR Negative (Negative)
[2024-10-25 18:12] LABS: Blood Urea Nitrogen 11 mg/dL (7-18); Total Protein 7.7 g/dL (6.4-8.2)
[2024-10-25 18:14] LABS: Add Urine Microscopic? YES; Appearance Urine Clear (Clear); Bilirubin Urine Negative (Negative); Blood Urine 3+ (Negative); Color Urine Light Yellow (Yellow); Glucose Urine UA Negative (Negative); Ketones Urine Negative (Negative); Leukocyte Esterase Ur Trace LEU/UL (Negative); Nitrate Urine Negative (Negative); Protein Urine Negative (Negative); Specific Grav Ur 1.015 (1.010-1.020); Urobilinogen Urine 0.2 mg/dL (0.2-1.0)
[2024-10-25 18:19] LABS: RBC Urine 21-50 /hpf (0-2)
[2024-10-25 18:20] LABS: Bacteria Urine 1+ /hpf; Squamous Epithelial Cell Urine Rare /hpf (Few)
[2024-10-25 18:44] VITALS: BP 105/76; PULSE 97; RESP 17; O2SAT 98
== END 2024-10-25 18:44 | disposition home or self-care (01) ==
PROVIDERS: Emergency Provider Emergency Medicine
DX: R55 Syncope and collapse (principal); Z20.822 Contact with and (suspected) exposure to COVID-19
CPT/HCPCS: 36415; 80053; 81001; 85025; 87637; 99283

== ENCOUNTER 2025-01-12 17:02 | Emergency (ER) | payer OTHER, SELFPAY ==
--- NOTE | ~2025-01-12 | CT_ITS ---
CT abdomen pelvis w con Ordering provider: Ashley Black APRN History: 34 years Female with . abdominal pain . Comparison: None. Technique: CT abdomen and pelvis with IV and without oral contrast. Automated exposure control and it erative reconstruction technique were employed. The dose-length product was 565.34 mGy-cm. 100 mL Omn ipaque 350 was given IV. Findings: VISUALIZED LOWER CHEST: Dependent atelectatic changes in the right lung. UPPER ABDOMINAL ORGANS: Liver: Normal. Gallbladder: Status post cholecystectomy. Spleen: Normal. Stomach/duodenum: Sliding hiatus hernia. Pancreas: Normal. Adrenals: Normal. Kidneys: Hypodensity in the right upper pole measuring 14 mm. Another hypodensity measuring 18.8 x 18 mm is also seen in the right upper pole.. PELVIC ORGANS: The bladder is underfilled with slightly thickened wall. Right ovarian cysts measuring 2.8 x 2.6 cm. Another one is seen measuring 2.7 x 2.5 cm. BOWEL AND MESENTERY: Colon: No evidence of diverticulitis. Fecal material is loaded in the right side of the colon. Append ix is not demonstrated. Small Bowel: Normal. No obstruction. Peritoneum/mesentery: No free air or free fluid. No mesenteric lymphadenopathy. RETROPERITONEUM: Normal aorta. No retroperitoneal lymphadenopathy. MUSCULOSKELETAL: Superficial soft tissues: The superficial soft tissues are normal. Bones: Normal spine. IMPRESSION: 1. Hypodensity in the right kidney upper pole which may be pyelonephritis or a mass. Follow-up and f urther evaluation advised. 2. No evidence of appendicitis, diverticulitis or intestinal obstruction. 3. Constipation. 4. Right ovarian cysts. 5. Small sliding hiatus hernia. Reviewed, dictated and finalized at location A. IMPRESSION: 1. Hypodensity in the right kidney upper pole which may be pyelonephritis or a mass. Follow-up and further evaluation advised. 2. No evidence of appendicitis, diverticulitis or intestinal obstruction. 3. Constipation. 4. Right ovarian cysts. 5. Small sliding hiatus hernia.
--- OUTSIDE RECORDS SUMMARY | 2025-01-12 17:05 | XMS_ITS | Encounter Summary ---
Author Organization [facility] Address [address] [place] [address] Care Team Providers Care Automatic Lathe Setter Name Role Phone José Chauhan MD Unavailable [phone] Keisha Carvajal DNP Primary Care Provider [phone] Encounter Details Date Type Department Care Team (Latest Contact Info) Description 01/11/2025 Travel Social History Tobacco Use Types Packs/Day Years Used Date Smoking Tobacco: Former Cigarettes 0.5 15 Electronic Cigarettes Smokeless Tobacco: Never Alcohol Use Standard Drinks/Week Comments Yes 0 (1 standard drink = 0.6 oz pur e alcohol) 1-2 drinks per week Comments No Sex and Gender Information Value Date Recorded Sex Assigned at Female 01/11/2025 12:06 PM CDT Legal Sex Female 4:12 PM CDT Gender Identity Female 01/11/2025 12:06 PM CDT Sexual Orientation Straight 01/11/2025 12 :06 PM CDT documented as of this encounter Functional Status * RETIRED Are you deaf or do you have serious difficulty hearing Answer Date of Assessment Author Status No 06/19/2019 3:01 AM CDT Activ e * RETIRED Are you blind or do you have serious difficulty seeing, even when wearing glasses? Answer Date of Assessment Author Status No 06/19/2019 3:01 AM CDT Activ e * Do you have serious difficulty walking or climbing stairs? Answer Date of Assessment Author Status No 06/19/2019 3:01 AM CDT Irish Pereira RN Active * Do you have difficulty dressing or bathing? Answer Date of Assessment Author Status No 06/19/2019 3:01 AM Irish Pace RN Active * Because of a physical, mental, or emotional condition, do you have difficulty doing errands alone such as visiting a doctor's office or shopping? Answer Date of Assessment Author Status No 06/19/2019 3:01 AM Irish Pace RN Active * Calculated C-SSRS Risk Score (Lifetime/Recent) Answer Date of Assessment Author Status No Risk Indicated 01/11/2025 11:35 AM ERENDIRAT Rufus Cruz, Nurse Student Active * [place] Suicide Severity Rating Scale (Screener/Recent Self-Report) Question Answer Date of Assessment Author Status 1. Wish to be (Past 1 Month) No 01/11/2025 11:35 AM Gerry Santiago, Nurse Student Active 2. Non-Specific Active Suicidal Thoughts (Past 1 Month) No 01/11/2025 11:35 AM Gerry Santiago, Nurse Student Active 6. Suicidal Behavior (Lifetime) No 01/11/2025 11:35 AM Gerry Santiago, Nurse Student Active documented as of this encounter Mental Status * Because of a physical, mental, or emotional condition, do you have serious difficulty concentrating, remembering, or making decisions? Answer Entry Date Author Status No 06/19/2019 3:01 AM Irish Pace RN Active documented in this encounter Plan of Treatment Not on file documented as of this encounter Visit Diagnoses Not on filedocumented in this encounter Care Teams Automatic Lathe Setter Relationship Specialty Start Date End Date Keisha Carvajal DNP [address] [place] [address] PCP - General NURSE PRACTITIONER 07/06/23 José Chauhan MD Consulting Physician INTERVENTIONAL CARDIOLOGY 03/17/20 documented as of this encounter
--- OUTSIDE RECORDS SUMMARY | 2025-01-12 17:05 | XMS_ITS | Encounter Summary ---
Author Organization [facility] Address [facility] [place] [address] Care Team Providers Care Accounts Payable Supervisor Name Role Phone None, Provider Primary Care Provider Alecia Lubin CNM Primary Care Provider [phone] Heidy Mcdaniel NP Primary Care Provider [phone] José Chauhan MD Unavailable [phone] None, Provider Primary Care Provider Keisha Horn DNP Primary Care Provider [phone] Encounter Details Date Type Department Care Team (Late st Contact Info) Description 06/25/2007 Abstract [facility] Conversion , Generic Conversion, Social History Tobacco Use Types Packs/Day Years Used Date Smoking Tobacco: Never Assessed Comments Unknown Sex and Gender Information Value Date Recorded Sex Assigned at Female 01/11/2025 12:06 PM CDT Legal Sex Female 4:12 PM CDT Gender Identity Female 01/11/2025 12:06 PM CDT Sexual Orientation Straight 01/11/2025 12 :06 PM CDT documented as of this encounter Plan of Treatment Not on file documented as of this encounter Visit Diagnoses Not on filedocumented in this encounter Care Teams Accounts Payable Supervisor Relationship Specialty Start Date End Date None, Provider, PCP - General 06/18/19 06/18/19 Alecia Hamilton CNM PCP - General ADVANCED PRACTICE LADLE PULLER 06/19/1902/17 Heidy Mcdaniel, PHOTONICS TECHNICIAN [address] [place] [address] [phone] PCP - General NURSE PRACTITIONER 03/17/20 08/10/22 None, Provider, PCP - General UNKNOWN PHYSICIAN SPECIALTY 08/11/22 07/05/23 Keisha Carvajal DNP [address] [place] [address] PCP - General NURSE PRACTITIONER 07/06/23 José Chauhan MD [address] [place] [phone] Consulting Physician INTERVENTIONAL CARDIOLOGY 03/17/20 documented as of this encounter
--- OUTSIDE RECORDS SUMMARY | 2025-01-12 17:05 | XMS_ITS | Encounter Summary ---
Author Organization [facility] Address [facility] [place] [address] Care Team Providers Care Manager Of Enterprise Name Role Phone None, Provider Primary Care Provider Alecia Lubin CNM Primary Care Provider [phone] Heidy Mcdaniel NP Primary Care Provider [phone] José Chauhan MD Unavailable [phone], Provider Primary Care Provider Keisha Horn DNP Primary Care Provider [phone] Encounter Details Date Type Department Care Team (Late st Contact Info) Description 03/09/2007 Abstract [facility] Conversion , Generic [...] on filedocumented in this encounter Care Teams Manager Of Enterprise Relationship Specialty Start Date End Date None, Provider, PCP - General 06/18/19 06/18/19 Alecia Hamilton CNM PCP - General ADVANCED PRACTICE AMERICANIZATION TEACHER 06/19/1902/17 Heidy Mcdaniel, CONTROL INSPECTOR [address] [place] [address] [phone] PCP - General NURSE PRACTITIONER 03/17/20 08/10/22 None, Provider, PCP - General UNKNOWN PHYSICIAN SPECIALTY 08/11/22 07/05/23 Keisha Carvajal DNP [address] [place] [address] PCP - General NURSE PRACTITIONER 07/06/23 José Chauhan MD [address] [place] [phone] Consulting Physician INTERVENTIONAL CARDIOLOGY 03/17/20 documented as of this encounter
--- OUTSIDE RECORDS SUMMARY | 2025-01-12 17:05 | XMS_ITS | Encounter Summary ---
Author Organization [facility] Address [facility] [place] [address] Care Team Providers Care Construction Carpenters Helper Name Role Phone None, Provider Primary Care Provider Alecia Lubin CNM Primary Care Provider [phone] Heidy Mcdaniel NP Primary Care Provider [phone] José Chauhan MD Unavailable [phone] None, Provider Primary Care Provider Keisha Horn DNP Primary Care Provider [phone] Encounter Details Date Type Department Care Team (Late st Contact Info) Description 06/27/2006 Abstract [facility] Conversion , Generic Conversion, Social [...] on filedocumented in this encounter Care Teams Construction Carpenters Helper Relationship Specialty Start Date End Date None, Provider, PCP - General 06/18/19 06/18/19 Alecia Hamilton CNM PCP - General ADVANCED PRACTICE DIETARY ASSISTANT 06/19/1902/17 Heidy Mcdaniel, SENIOR SALESFORCE DEVELOPER [address] [place] [address] [phone] PCP - General NURSE PRACTITIONER 03/17/20 08/10/22 None, Provider, PCP - General UNKNOWN PHYSICIAN SPECIALTY 08/11/22 07/05/23 Keisha Carvajal DNP [address] [place] [address] PCP - General NURSE PRACTITIONER 07/06/23 José Chauhan MD [address] [place] [phone] Consulting Physician INTERVENTIONAL CARDIOLOGY 03/17/20 documented as of this encounter
--- OUTSIDE RECORDS SUMMARY | 2025-01-12 17:05 | XMS_ITS | Encounter Summary ---
Author Organization [facility] Address [address] [place] [address] Care Team Providers Care Jigsawyer Name Role Phone None, Provider Primary Care Provider Alecia Lubin CNM Primary Care Provider [phone] Heidy Mcdaniel NP Primary Care Provider [phone] José Chauhan MD Unavailable [phone] None, Provider Primary Care Provider Keisha Horn DNP Primary Care Provider [phone] Encounter Details Date Type Department Care Team (Late st Contact Info) Description 02/23/[address] [facility] Conversion [address] [place], [place] [address] , Generic Conversion, Social History Tobacco Use [...] on filedocumented in this encounter Care Teams Jigsawyer Relationship Specialty Start Date End Date None, ProviderMD PCP - General 06/18/19 06/18/19 Alecia Hamilton CNM PCP - General ADVANCED PRACTICE SUBSTANCE ABUSE COUNSELOR 06/19/1902/17 Heidy Mcdaniel NP [address] [place] [phone] PCP - General NURSE PRACTITIONER 03/17/20 08/10/22 None, Provider, PCP - General UNKNOWN PHYSICIAN SPECIALTY 08/11/22 07/05/23 Keisha Carvajal DNP [address] [place] [address] PCP - General NURSE PRACTITIONER 07/06/23 José Chauhan MD [address] [place] [phone] Consulting Physician INTERVENTIONAL CARDIOLOGY 03/17/20 documented as of this encounter
--- OUTSIDE RECORDS SUMMARY | 2025-01-12 17:05 | XMS_ITS | Encounter Summary ---
Author Organization [facility] Address [facility] [place] [address] Care Team Providers Care Anesthesia Director Name Role Phone None, Provider Primary Care Provider Alecia Lubin CNM Primary Care Provider [phone] Heidy Mcdaniel NP Primary Care Provider [phone] José Chauhan MD Unavailable [phone] None, Provider Primary Care Provider Keisha Horn DNP Primary Care Provider [phone] Encounter Details Date Type Department Care Team (Late st Contact Info) Description 03/04/2008 Abstract [facility] Conversion , Generic Conversion, Social History [...] on filedocumented in this encounter Care Teams Anesthesia Director Relationship Specialty Start Date End Date None, Provider, PCP - General 06/18/19 06/18/19 Alecia Hamilton CNM PCP - General ADVANCED PRACTICE CONSTRUCTION ENGINEER 06/19/1902/17 Heidy Mcdaniel, CONCRETE BUCKET HOOKER [address] [place] [address] [phone] PCP - General NURSE PRACTITIONER 03/17/20 08/10/22 None, Provider, PCP - General UNKNOWN PHYSICIAN SPECIALTY 08/11/22 07/05/23 Keisha Carvajal DNP [address] [place] [address] PCP - General NURSE PRACTITIONER 07/06/23 José Chauhan MD [address] [place] [phone] Consulting Physician INTERVENTIONAL CARDIOLOGY 03/17/20 documented as of this encounter
--- OUTSIDE RECORDS SUMMARY | 2025-01-12 17:05 | XMS_ITS | Encounter Summary ---
Author Organization [facility] Address [facility] [place] [address] Care Team Providers Care Freight Receiver Name Role Phone None, Provider Primary Care Provider lAecia Lubin CNM Primary Care Provider [phone] Heidy Mcdaniel NP Primary Care Provider [phone] José Chauhan MD Unavailable [phone] None, Provider Primary Care Provider Keisha Horn DNP Primary Care Provider [phone] Encounter Details Date Type Department Care Team (Late st Contact Info) Description 04/14/2008 Abstract [facility] Conversion , Generic [...] on filedocumented in this encounter Care Teams Freight Receiver Relationship Specialty Start Date End Date None, Provider, PCP - General 06/18/19 06/18/19 Alecia Hamilton CNM PCP - General ADVANCED PRACTICE GEOLOGY TEACHER 06/19/1902/17 Heidy Mdcaniel, AUTOMATIC RIVETING MACHINE OPERATOR [address] [place] [address] [phone] PCP - General NURSE PRACTITIONER 03/17/20 08/10/22 None, Provider, PCP - General UNKNOWN PHYSICIAN SPECIALTY 08/11/22 07/05/23 Keisha Carvajal DNP [address] [place] [address] PCP - General NURSE PRACTITIONER 07/06/23 José Chauhan MD [address] [place] [phone] Consulting Physician INTERVENTIONAL CARDIOLOGY 03/17/20 documented as of this encounter
--- OUTSIDE RECORDS SUMMARY | 2025-01-12 17:05 | XMS_ITS | Encounter Summary ---
Author Organization [facility] Address [facility] [place] [address] Care Team Providers Care Flight Dispatcher Name Role Phone None, Provider Primary Care Provider Alecia Lubin CNM Primary Care Provider [phone] Heidy Mcdaniel NP Primary Care Provider [phone] José Chauhan MD Unavailable [phone], Provider Primary Care Provider Keisha Horn DNP Primary Care Provider [phone] Encounter Details Date Type Department Care Team (Late st Contact Info) Description 09/13/2007 Abstract [facility] Conversion , Generic [...] on filedocumented in this encounter Care Teams Flight Dispatcher Relationship Specialty Start Date End Date None, Provider, PCP - General 06/18/19 06/18/19 Alecia Hamilton CNM PCP - General ADVANCED PRACTICE TYPIST 06/19/1902/17 Heidy Mcdaniel, DATA CONVERSION ANALYST [address] [place] [address] [phone] PCP - General NURSE PRACTITIONER 03/17/20 08/10/22 None, Provider, PCP - General UNKNOWN PHYSICIAN SPECIALTY 08/11/22 07/05/23 Keisha Carvajal DNP [address] [place] [address] PCP - General NURSE PRACTITIONER 07/06/23 José Chauhan MD [address] [place] [phone] Consulting Physician INTERVENTIONAL CARDIOLOGY 03/17/20 documented as of this encounter
--- OUTSIDE RECORDS SUMMARY | 2025-01-12 17:05 | XMS_ITS | Encounter Summary ---
Author Organization [facility] Address [facility] [place] [address] Care Team Providers Care Clinical Support Tech Name Role Phone None, Provider Primary Care Provider Alecia Lubin CNM Primary Care Provider [phone] Heidy Mcdaniel NP Primary Care Provider [phone] José Chauhan MD Unavailable [phone] None, Provider Primary Care Provider Keisha Horn DNP Primary Care Provider [phone] Encounter Details Date Type Department Care Team (Late st Contact Info) Description 06/15/2005 Abstract [facility] Conversion , Generic Conversion, Social History Tobacco [...] on filedocumented in this encounter Care Teams Clinical Support Tech Relationship Specialty Start Date End Date None, Provider, PCP - General 06/18/19 06/18/19 Alecia Hamilton CNM PCP - General ADVANCED PRACTICE CAUL PULLER 06/19/1902/17 Heidy Mcdaniel, BRIM CUTTER [address] [place] [address] [phone] PCP - General NURSE PRACTITIONER 03/17/20 08/10/22 None, Provider, PCP - General UNKNOWN PHYSICIAN SPECIALTY 08/11/22 07/05/23 Keisha Carvajal DNP [address] [place] [address] PCP - General NURSE PRACTITIONER 07/06/23 José Chauhan MD [address] [place] [phone] Consulting Physician INTERVENTIONAL CARDIOLOGY 03/17/20 documented as of this encounter
--- OUTSIDE RECORDS SUMMARY | 2025-01-12 17:05 | XMS_ITS | Encounter Summary ---
Author Organization [facility] Address [facility] [place] [address] Care Team Providers Care Cryogenic Transport Driver Name Role Phone None, Provider Primary Care Provider Alecia Lubin CNM Primary Care Provider [phone] Heidy Mcdaniel NP Primary Care Provider [phone] José Chauhan MD Unavailable [phone] None, Provider Primary Care Provider Keisha Horn DNP Primary Care Provider [phone] Encounter Details Date Type Department Care Team (Late st Contact Info) Description 11/28/2005 Abstract [facility] [[email or web address] Conversion [...] on filedocumented in this encounter Care Teams Cryogenic Transport Driver Relationship Specialty Start Date End Date None, Provider, PCP - General 06/18/19 06/18/19 Alecia Hamilton CNM PCP - General ADVANCED PRACTICE DINKEY OPERATOR SLAG 06/19/1902/17 Heidy Mcdaniel, MANAGER FIXED INCOME [address] [place] [phone] PCP - General NURSE PRACTITIONER 03/17/20 08/10/22 None, Provider, PCP - General UNKNOWN PHYSICIAN SPECIALTY 08/11/22 07/05/23 Keisha Carvajal DNP [address] [place] [address] PCP - General NURSE PRACTITIONER 07/06/23 José Chauhan MD [address] [place] [phone] Consulting Physician INTERVENTIONAL CARDIOLOGY 03/17/20 documented as of this encounter
--- OUTSIDE RECORDS SUMMARY | 2025-01-12 17:05 | XMS_ITS | Encounter Summary ---
Author Organization [facility] Address [facility] [place] [address] Care Team Providers Care Funeral Location Manager Name Role Phone None, Provider Primary Care Provider Alecia Lubin CNM Primary Care Provider [phone] Heidy Mcdaniel NP Primary Care Provider [phone] José Chauhan MD Unavailable [phone] None, Provider Primary Care Provider Keisha Horn DNP Primary Care Provider [phone] Encounter Details Date Type Department Care Team (Late st Contact Info) Description 07/11/2005 Abstract [facility] Conversion , Generic Conversion, Social History [...] on filedocumented in this encounter Care Teams Funeral Location Manager Relationship Specialty Start Date End Date None, Provider, PCP - General 06/18/19 06/18/19 Alecia Hamilton CNM PCP - General ADVANCED PRACTICE BONE CHAR OPERATOR 06/19/1902/17 Heidy Mcdaniel, COMB TENDER [address] [place] [phone] PCP - General NURSE PRACTITIONER 03/17/20 08/10/22 None, Provider, PCP - General UNKNOWN PHYSICIAN SPECIALTY 08/11/22 07/05/23 Keisha Carvajal DNP [address] [place] [address] PCP - General NURSE PRACTITIONER 07/06/23 José Chauhan MD [address] [place] [phone] Consulting Physician INTERVENTIONAL CARDIOLOGY 03/17/20 documented as of this encounter
--- OUTSIDE RECORDS SUMMARY | 2025-01-12 17:05 | XMS_ITS | Clinical Summary ---
Author Organization [facility] Address [address] [place] [address] Care Team Providers Care Rippler Name Role Phone Unavailable Primary Care Provider Unavailabl e Source Comments [facility],non-owned Affiliates and Associated Physician Practices is amultiple site organization consisting of ambulatory clinics and hospital sitesin [place], [place], [place] and [place]. This disclosure is being madepursuant to the Care Everywhere program and may not contain all information available regarding this patient. Last updated 18.[facility] Allergies No known active allergies Medications * Be aware that medications may not be up to date on this document. Alwaysverify current medications with the patient. raNITIdine (ZANTAC) 150 MG tablet Take 150 [...] Second for AoDil versus physician concern Immunizations Immunization Administration Dates Next Due TDAP (7yrs+) 04/10/2018 Social History Tobacco Use Types Packs/Day Years Used Date Smoking Tobacco: Never Smokeless Tobacco: Never Comments No Sex and Gender Information Value Date Recorded Sex Assigned at Not on file Legal Sex Female 7:22 AM CDT Gender Identity Not on file Sexual [...] Health Maintenance Due Date Last Done Comments HIV SCREENING 2005 HEPATITIS C SCREENING 10/10/2008 HEPATITIS B VACCINE (1 of 3 - 19+ 3-dose series) 2009 COVID-19 VACCINE (2023-2 5 season) 2024 DEPRESSION SCREENING 09/18/2024 INFLUENZA VACCINE (Season Ended) 2025 DTAP/TDAP/TD VACCINES (2 - T d or Tdap) 04/10/2028 04/10/2018 ZOSTER VACCINE (1 of 2) 2040 HIB VACCINE Aged Out No longer eligi ble based on patient's age to complete this topic HPV VACCINE Aged Out No longer eligi ble based on patient's age to complete this topic MENINGOCOCCAL (Group B) VACC INE SHARED DECISION-MAKING Aged Out No longer eligibl e based on patient's age to complete this topic MENINGOCOCCAL GROUPS A/C/Y/W VACCINE Aged Out No longer eligible b ased on patient's age to complete this topic PNEUMOCOCCAL VACCINE Aged Out No long er eligible based on patient's age to complete this topic Insurance MEDICAID [facility] MEDICAID - [facility] Advance Directives * Full Code (Latest Code Status on File) Date Activated Date Inactivated Comments 04/08/2018 9:19 AM 04/11/2018 2:39 PM * Full Code Date Activated Date Inactivated Comments 04/05/2018 7:58 PM 04/08/2018 9:19 AM
--- OUTSIDE RECORDS SUMMARY | 2025-01-12 17:05 | XMS_ITS | Encounter Summary ---
Author Organization [facility] Address [facility] [place] [address] Care Team Providers Care Copy Center Specialist Name Role Phone None, Provider Primary Care Provider Alecia Lubin CNM Primary Care Provider [phone] Heidy Mcdaniel NP Primary Care Provider [phone] José Chauhan MD Unavailable [phone] None, Provider Primary Care Provider Keisha Horn DNP Primary Care Provider [phone] Encounter Details Date Type Department Care Team (Late st Contact Info) Description 07/24/2007 Abstract [facility] Conversion , Generic Conversion, Social History [...] on filedocumented in this encounter Care Teams Copy Center Specialist Relationship Specialty Start Date End Date None, Provider, PCP - General 06/18/19 06/18/19 Alecia Hamilton CNM PCP - General ADVANCED PRACTICE FOOD SAFETY TECHNICIAN 06/19/1902/17 Heidy Mcdaniel, SOCIAL SERVICES DIRECTOR [address] [place] [phone] PCP - General NURSE PRACTITIONER 03/17/20 08/10/22 None, Provider, PCP - General UNKNOWN PHYSICIAN SPECIALTY 08/11/22 07/05/23 Keisha Carvajal DNP [address] [place] [address] PCP - General NURSE PRACTITIONER 07/06/23 José Chauhan MD [address] [place] [phone] Consulting Physician INTERVENTIONAL CARDIOLOGY 03/17/20 documented as of this encounter
--- OUTSIDE RECORDS SUMMARY | 2025-01-12 17:05 | XMS_ITS | Clinical Summary ---
Author Organization [facility] Address [address] [place] [address] Care Team Providers Care Controls Operator Molded Goods Name Role Phone José Chauhan MD Unavailable [phone] Keisha Carvajal DNP Primary Care Provider [phone] Allergies No known active allergies Medications multi [...] Resolved Date Acute cholecystitis 06/19/2019 06/19/20 19 Encounters Date Type Department Care Team Description 01/11/2025 11:24 AM CDT - 01/11/2025 6:04 PM CDT Emergency [facility] Emergency Services [address] [place] [address] Wolfgang Camacho, DO Abdominal Pain Discharge Disposition: Home or Self Care (Routine Discharge) 01/11/2025 Travel from Last 3 Months Immunizations Immunization Administration Dates Next Due Tdap (Adacel) 11/20/2016 [...] Orientation Straight 01/11/2025 12 :06 PM CDT Last Filed Vital Signs Vital Sign Reading Time Taken Comments Blood Pressure 112/62 01/11/2025 5:59 PM CDT Pulse 88 01/11/2025 5:59 PM CDT Temperature 37.3 C (99.1 F) 01/11/2025 5:59 PM CDT Respiratory Rate 18 01/11/2025 5:59 PM CDT Oxygen Saturation 98% 01/11/2025 5:59 PM CDT Inhaled Oxygen Concentration - - Weight 74.8 kg (165 lb) 01/11/2025 11:30 AM CDT Height 162.6 cm (5' 4 ) 01/11/2025 11:30 AM CDT Body Mass Index 28.32 01/11/2025 11:30 AM CDT Plan of Treatment Health Maintenance Due Date Last Done Comments Cervical Cancer Screening Pap Smear (Age 30 to 64) Every 3 Years 1990 Annual Physical 1993 Hepatitis C 2008 Cervical Cancer Screening Pap with HPV Testing (Age 30 to 64) Every 5 Years 2020 Cervical Cancer Screening with HPV 2020 COVID-19 Vaccine (1 - 2024-25 season) 2024 DTaP, Tdap and Td Vaccines (8 [...] 5 Years) and At-Risk Patients (6 to 49 Years) Aged Out No longer eligible based on patient's age to complete this topic RSV Immunizations Under 20 Months Aged Out No longer eligible based on patient's age to complete this topic Procedures Procedure Name Priority Date/Time Associated Diagnosis Comments CT ABD+PEL WO CON STAT 01/11/2025 2:3 9 PM CDT TEST URINE STAT 01/11/2025 2:20 PM CDT URINALYSIS AUTO DIP STAT 01/11/2025 2 :20 PM CDT LACTIC ACID W REFLEX (SEPSIS) STAT 01/11/2025 12:15 PM CDT LIPASE STAT 01/11/2025 12:15 PM CDT COMPREHENSIVE METABOLIC PANEL STAT 01/11/2025 12:15 PM CDT CBC W/DIFF AUTOMATED STAT 01/11/2025 12:15 PM CDT from Last 3 Months Results * CT ABD+PEL WO CON (01/11/2025 2:39 PM CDT) Anatomical Region Laterality Modality Abdomen Computed Tomogra phy 01/11/2025 2:45 PM CDT Impressions 01/11/2025 2:54 PM CDT IMPRESSION: ===== 1. Punctate calcification in the right adnexa in the region of course of right ureter, however structures in this area are not delineated due to lack of contrast and lack of interposed abdominal fat. No signs of obstructive uropathy. No convincing hydronephrosis or hydroureter proximally. 2. Asymmetry enlargement of the right ovary with low density areas measuring up to 2.8 cm. Cysts favored. Torsion not excluded on these images. 3. No bowel obstruction. Normal appendix. Referred By: Interpreted By: Seferino Bernard MD, 01/11/2025 2:45 PM Narrative 01/11/2025 2:[address] [place] [address] EXAMINATION: CT Abdomen and Pelvis without contrast EXAM DATE/TIME: 01/11/2025 2:30 PM REASON FOR EXAM: Right abdominal / flank pain Abdominal pain in the right upper quadrant right lower quadrant and flank. Pain awoke the patient this morning at 10:30. Prior kidney infections. COMPARISON: CT abdomen and pelvis 11/28/2022 TECHNIQUE: Axial CT images of the abdomen and pelvis are obtained without the use of IV contrast agent. Subsequent coronal and sagittal reformatted sequences are created for evaluation. A dose lowering technique was used for this procedure, which may include, but is not limited to, dose reduction technique, automated exposure control, iterative reconstruction, ALARA (As Low As Reasonably Achievable), or Image Gently techniques. FINDINGS: Lung bases clear. No pleural effusion. Heart size normal. No pericardial effusion. Liver and spleen normal in size and surface contour. Cholecystectomy clips. Pancreas and adrenal glands unremarkable. Abdominal aorta normal in caliber throughout. The bowel is normal in caliber throughout. No evidence of bowel obstruction. Appendix normal. No free fluid in the pelvis. Bladder contours are smooth. No intraluminal calcifications in the bladder. Asymmetric enlargement of right ovary. Low-density areas of the right ovary measuring up to 2.8 cm. Uterus and left adnexal structures unremarkable. Kidneys have symmetric appearance with no perinephric stranding. Ureters are symmetric in caliber proximally. No convincing hydronephrosis. There is a new punctate calcification overlying the right adnexa on axial image 126. This is in the region of course of right ureter, however structures in this area are not delineated due to lack of contrast and interposed abdominal fat. Bone level imaging shows no destructive osseous lesions. No unexpected radiopaque foreign bodies. ===== Procedure Note Seferino Bernard MD - 01/11/[address] [place] [address] EXAMINATION: CT Abdomen and Pelvis without contrast EXAM DATE/TIME: 01/11/2025 2:30 PM REASON FOR EXAM: Right abdominal / flank pain Abdominal pain in the right upper quadrant right lower quadrant andflank. Pain awoke the patient this morning at 10:30. Prior kidneyinfections. COMPARISON: CT abdomen and pelvis 11/28/2022 TECHNIQUE: Axial CT images of the abdomen and pelvis are obtained withoutthe use of IV contrast agent. Subsequent coronal and sagittal reformattedsequences are created for evaluation. A dose lowering technique was usedfor this procedure, which may include, but is not limited to, dosereduction technique, automated exposure control, iterative reconstruction,ALARA (As Low As Reasonably Achievable), or Image Gently techniques. FINDINGS: Lung bases clear. No pleural effusion. Heart size normal. Nopericardial effusion. Liver and spleen normal in size and surface contour. Cholecystectomyclips. Pancreas and adrenal glands unremarkable. Abdominal aorta normalin caliber throughout. The bowel is normal in caliber throughout. Noevidence of bowel obstruction. Appendix normal. No free fluid in thepelvis. Bladder contours are smooth. No intraluminal calcifications inthe bladder. Asymmetric enlargement of right ovary. Low-density areas ofthe right ovary measuring up to 2.8 cm. Uterus and left adnexalstructures unremarkable. Kidneys have symmetric appearance with noperinephric stranding. Ureters are symmetric in caliber proximally. Noconvincing hydronephrosis. There is a new punctate calcificationoverlying the right adnexa on axial image 126. This is in the region ofcourse of right ureter, however structures in this area are not delineateddue to lack of contrast and interposed abdominal fat. Bone level imagingshows no destructive osseous lesions. No unexpected radiopaque foreignbodies. ===== IMPRESSION: ===== 1. Punctate calcification in the right adnexa in the region of course ofright ureter, however structures in this area are not delineated due tolack of contrast and lack of interposed abdominal fat. No signs ofobstructive uropathy. No convincing hydronephrosis or hydroureterproximally. 2. Asymmetry enlargement of the right ovary with low density areasmeasuring up to 2.8 cm. Cysts favored. Torsion not excluded on theseimages. 3. No bowel obstruction. Normal appendix. Referred By: Interpreted By: Seferino Bernard MD, 01/11/2025 2:45 PM us Wolfgang Camacho DO CT Final Result * TEST URINE (01/11/2025 2:20 PM CDT) URINE HCG TEST NEGATIVE NEGATIVE 01/11/2025 2:31 PM CDT [facility] Comment: VERY DILUTE URINE SPECIMENS MAY NOT CONTAIN NANOTECHNOLOGY ENGINEERING TECHNOLOGIST LEVELS OF HCG. IF IS STILL SUSPECTED, A SERUM HCG TEST IS RECOMMENDED. URINE SPECIMEN FROM URETHRA / Unknown 01/11/2025 2:20 PM CDT us Wolfgang Camacho DO URINE ORDERABLES Final Result [address] [place] [address], [place] * (ABNORMAL) URINALYSIS AUTO DIP (01/11/2025 2:20 PM CDT) COLOR (U) YELLOW YELLOW 01/11/2025 2:33 PM CDT [facility] TRANSPARENCY CLEAR CLEAR 01/11/2025 2:33 PM CDT [facility] SPECIFIC GRAVITY (U) 1.010 1.010 - 1.025 01/11/2025 2:33 PM CDT [facility] U PH 8.0 5.0 - 8.5 01/11/2025 2:33 PM CDT [facility] LEUKOCYTES (U) NEGATIVE NEGATIVE 01/11/2025 2:33 PM CDT [facility] NITRITES NEGATIVE NEGATIVE 01/11/2025 2:33 PM CDT [facility] PROTEIN RANDOM (U) NEGATIVE NEGATIVE 01/11/2025 2:33 PM CDT [facility] GLUCOSE (U) NEGATIVE NEGATIVE 01/11/2025 2:33 PM CDT [facility] KETONES MG/DL (U) NEGATIVE NEGATIVE 01/11/2025 2:33 PM CDT [facility] UROBILINOGEN 0.2 0.2 - 1.0 EU/DL 01/11/2025 2:33 PM CDT [facility] BILIRUBIN (U) NEGATIVE NEGATIVE 01/11/2025 2:33 PM CDT [facility] BLOOD (U) TRACE(A) NEGATIVE 01/11/2025 2:33 PM CDT [facility] URINE SPECIMEN OBTAINED BY CLEAN CATCH PROCEDURE / Unknown 01/11/2025 2:20 PM CDT us Wolfgang Camacho DO URINE ORDERABLES Final Result Performing Organization Address [facility] Co de Phone Number [facility] [address] [place] [address], * LACTIC ACID W REFLEX (SEPSIS) (01/11/2025 12:15 PM CDT) LACTIC ACID VENOUS 0.7 0.5 - 2.0 MMOL/L 01/11/2025 12:51 PM CDT [facility] 01/11/2025 12:1 5 PM CDT us Wolfgang Camacho DO LABORATORY Final Result Performing Organization Address [facility]/ZIP Co de Phone Number [facility] [address] [place] [address], * COMPREHENSIVE METABOLIC PANEL (01/11/2025 12:15 PM CDT) GLUCOSE 91 70 - 99 MG/DL 01/11/2025 12:53 PM CDT [facility] BUN 17 7 - 18 MG/DL 01/11/2025 12:53 PM CDT [facility] CREATININE S/P/B 0.77 0.50 - 1.20 MG/DL 01/11/2025 12:53 PM CDT [facility] SODIUM S/P/B 139 136 - 145 MMOL/L 01/11/2025 12:53 PM CDT [facility] POTASSIUM S/P/B 4.0 3.5 - 5.1 MMOL/L 01/11/2025 12:53 PM CDT [facility] CHLORIDE S/P/B 104 100 - 108 MMOL/L 01/11/2025 12:53 PM CDT [facility] CO2 26.4 21.0 - 32.0 MMOL/L 01/11/2025 12:53 PM CDT [facility] CALCIUM S/P/B 9.3 8.5 - 10.1 MG/DL 01/11/2025 12:53 PM CDT [facility] BILIRUBIN TOTAL S/P/B 0.6 0.2 - 1.2 MG/DL 01/11/2025 12:53 PM CDT [facility] Comment: THIS ASSAY IS NOT RECOMMENDED FOR PATIENTS UNDERGOING TREATMENT WITH ELTROMBOPAG DUE TO THE POTENTIAL FOR FALSELY ELEVATED RESULTS. TOTAL PROTEIN S/P/B 7.3 6.4 - 8.2 G/DL 01/11/2025 12:53 PM CDT [facility] ALBUMIN S/P/B 3.6 3.4 - 5.0 G/DL 01/11/2025 12:53 PM CDT [facility] AST 20 15 - 37 U/L 01/11/2025 12:53 PM CDT [facility] ALT 38 14 - 55 U/L 01/11/2025 12:53 PM CDT [facility] ALKALINE PHOSPHATASE S/P/B 118 50 - 136 U/L 01/11/2025 12:53 PM CDT [facility] ANION GAP 8.6 5.0 - 15.0 MMOL/L 01/11/2025 12:53 PM CDT [facility] BUN CREATININE RATIO 22.1 6 - 26 01/11/2025 12:53 PM CDT [facility] A/G RATIO 1.0 1.0 - 2.5 RATIO 01/11/2025 12:53 PM CDT [facility] GFR ESTIMATE >90 >90 ML/MIN/1.7 3 M2 01/11/2025 12:53 PM CDT [facility] Comment: NOTE: eGFR is not calculated for patients <18 years of age. This is an estimated GFR calculation using the new CKD EPI creatinine equation without race and so does not require a correction factor for race. This estimated GFR should not be used for calculating drug doses. 01/11/2025 12:1 5 PM CDT us Wolfgang Camacho DO LABORATORY Final Result [facility] [address] [place] [address], * (ABNORMAL) CBC W/DIFF AUTOMATED (01/11/2025 12:15 PM CDT) WBC 7.80 4.50 - 11.00 x10'3/uL 01/11/2025 12:32 PM CDT [facility] RBC 4.52 4.00 - 5.20 x10'6/uL 01/11/2025 12:32 PM CDT [facility] HGB 13.4 12.0 - 16.0 G/DL 01/11/2025 12:32 PM CDT [facility] HCT 39.4 38.0 - 48.0 % 01/11/2025 12:32 PM CDT [facility] MCV 87.2 80.0 - 100.0 FL 01/11/2025 12:32 PM CDT [facility] MCH 29.6 26.0 - 34.0 PG 01/11/2025 12:32 PM CDT [facility] MCHC 34.0 31.0 - 37.0 G/DL 01/11/2025 12:32 PM CDT [facility] RDW 12.3 11.6 - 14.8 % 01/11/2025 12:32 PM CDT [facility] PLT 205 130 - 400 x10'3/uL 01/11/2025 12:32 PM CDT [facility] MPV 9.8 7.0 - 12.0 FL 01/11/2025 12:32 PM CDT [facility] CBC COMMENT AUTOMATED RBC MORPHOLOGY AND PLATELET EVALUATION NORMAL 01/11/2025 12:32 PM CDT [facility] NEUTROPHILS % 78.3(H) 40.0 - 74.0 % 01/11/2025 12:32 PM CDT [facility] LYMPHOCYTES % 13.7(L) 14.0 - 46.0 % 01/11/2025 12:32 PM CDT [facility] MONOCYTES % 7.2 4.0 - 13.0 % 01/11/2025 12:32 PM CDT [facility] EOSINOPHILS 0.3 0.0 - 7.0 % 01/11/2025 12:32 PM CDT [facility] BASOPHILS 0.1 0.0 - 3.0 % 01/11/2025 12:32 PM CDT [facility] IMMATURE GRANS % 0.4 0.0 - 0.43 % 01/11/2025 12:32 PM CDT [facility] NRBC % 0.0 % 01/11/2025 12:32 PM CDT [facility] ABS. NEUTROPHILS TOTAL 6.11 1.69 - 7.81 x10'3/uL 01/11/2025 12:32 PM CDT [facility] ABS. LYMPHOCYTES 1.07 0.21 - 5.42 x10'3/uL 01/11/2025 12:32 PM CDT [facility] ABS. MONOCYTES 0.56 0.04 - 1.37 x10'3/uL 01/11/2025 12:32 PM CDT [facility] ABS. EOSINOPHILS 0.02 0.00 - 0.68 x10'3/uL 01/11/2025 12:32 PM CDT [facility] ABS. BASOPHILS 0.01 0.00 - 0.08 x10'3/uL 01/11/2025 12:32 PM CDT [facility] ABS. IMMATURE GRANULOCYTES 0.03 0.00 - 0.06 x10'3/uL 01/11/2025 12:32 PM CDT [facility] ABS. NUCLEATED RBC'S 0.00 0.00 - 0.01 x10'3/uL 01/11/2025 12:32 PM CDT [facility] 01/11/2025 12:1 5 PM CDT Wolfgang Camacho DO LABORATORY Final Result [facility] [address] [place] [address], * LIPASE (01/11/2025 12:15 PM CDT) LIPASE 35 16 - 77 UNITS/L 01/11/2025 12:53 PM CDT [facility] 01/11/2025 12:1 5 PM CDT Wolfgang Camacho DO LABORATORY Final Result [facility] [address] [place] [address], from Last [address] [place] [address] [address] FORMERLY [facility] Advance Directives Documents on File Type Date Recorded Patient Recovery Engineer Expl anation Advance Directives and Living Will 11/17/2016 12:00 AM ADVANCED DIRECTIVES * Full Code (Latest Code Status on File) Date Activated Date Inactivated Comments 06/19/2019 1:41 AM 06/20/2019 2:01 PM Care Teams Controls Operator Molded Goods Relationship Specialty Start Date End Date Keisha Carvajal DNP [address] [place] [address] PCP - General NURSE PRACTITIONER 07/06/23 José Chauhan MD Consulting Physician INTERVENTIONAL CARDIOLOGY 03/17/20
--- OUTSIDE RECORDS SUMMARY | 2025-01-12 17:05 | XMS_ITS | Encounter Summary ---
Author Organization [facility] Address [facility] [place] [address] Care Team Providers Care Oyster Grower Name Role Phone None, Provider Primary Care Provider Alecia Lubin CNM Primary Care Provider [phone] Heidy Mcdaniel NP Primary Care Provider [phone] José Chauhan MD Unavailable [phone] None, Provider Primary Care Provider Keisha Horn DNP Primary Care Provider [phone] Encounter Details Date Type Department Care Team (Late st Contact Info) Description 12/17/2004 Abstract [facility] Conversion , Generic Conversion, Social History Tobacco [...] on filedocumented in this encounter Care Teams Oyster Grower Relationship Specialty Start Date End Date None, Provider, PCP - General 06/18/19 06/18/19 Alecia Hamilton CNM PCP - General ADVANCED PRACTICE BENCH CHEMIST 06/19/1902/17 Heidy Mcdaniel, MEDICAL ONCOLOGY PHYSICIAN [address] [place] [phone] PCP - General NURSE PRACTITIONER 03/17/20 08/10/22 None, Provider, PCP - General UNKNOWN PHYSICIAN SPECIALTY 08/11/22 07/05/23 Keisha Carvajal DNP [address] [place] [address] PCP - General NURSE PRACTITIONER 07/06/23 José Chauhan MD [address] [place] [phone] Consulting Physician INTERVENTIONAL CARDIOLOGY 03/17/20 documented as of this encounter
--- OUTSIDE RECORDS SUMMARY | 2025-01-12 17:05 | XMS_ITS | Encounter Summary ---
Author Organization [facility] Address [facility] [place] [address] Care Team Providers Care Vice President Of Compliance Name Role Phone None, Provider Primary Care Provider Alecia Lubin CNM Primary Care Provider [phone] Heidy Mcdaniel NP Primary Care Provider [phone] José Chauhan MD Unavailable [phone] None, Provider Primary Care Provider Keisha Horn DNP Primary Care Provider [phone] Encounter Details Date Type Department Care Team (Late st Contact Info) Description 04/01/2008 Abstract [facility] Conversion , Generic Conversion, Social [...] on filedocumented in this encounter Care Teams Vice President Of Compliance Relationship Specialty Start Date End Date None, Provider, PCP - General 06/18/19 06/18/19 Alecia Hamilton CNM PCP - General ADVANCED PRACTICE CHARGE OPERATOR 06/19/1902/17 Heidy Mcdaniel, RETAIL PROJECT MERCHANDISER [address] [place] [phone] PCP - General NURSE PRACTITIONER 03/17/20 08/10/22 None, Provider, PCP - General UNKNOWN PHYSICIAN SPECIALTY 08/11/22 07/05/23 Keisha Carvajal DNP [address] [place] [address] PCP - General NURSE PRACTITIONER 07/06/23 José Chauhan MD [address] [place] [phone] Consulting Physician INTERVENTIONAL CARDIOLOGY 03/17/20 documented as of this encounter
--- OUTSIDE RECORDS SUMMARY | 2025-01-12 17:05 | XMS_ITS | Encounter Summary ---
Author Organization [facility] Address [facility] [place] [address] Care Team Providers Care Flap Curer Name Role Phone None, Provider Primary Care Provider Alecia Lubin CNM Primary Care Provider [phone] Heidy Mcdaniel NP Primary Care Provider [phone] José Chauhan MD Unavailable [phone] None, Provider Primary Care Provider Keisha Horn DNP Primary Care Provider [phone] Encounter Details Date Type Department Care Team (Late st Contact Info) Description 12/01/2006 Abstract [facility] Conversion , [...] on filedocumented in this encounter Care Teams Flap Curer Relationship Specialty Start Date End Date None, Provider, PCP - General 06/18/19 06/18/19 Alecia Hamilton CNM PCP - General ADVANCED PRACTICE MANAGER PARK 06/19/1902/17 Heidy Mcdaniel, CIVIL DESIGNER [address] [place] [phone] PCP - General NURSE PRACTITIONER 03/17/20 08/10/22 None, Provider, PCP - General UNKNOWN PHYSICIAN SPECIALTY 08/11/22 07/05/23 Keisha Carvajal DNP [address] [place] [address] PCP - General NURSE PRACTITIONER 07/06/23 José Chauhan MD [address] [place] [phone] Consulting Physician INTERVENTIONAL CARDIOLOGY 03/17/20 documented as of this encounter
--- OUTSIDE RECORDS SUMMARY | 2025-01-12 17:05 | XMS_ITS | Encounter Summary ---
Author Organization [facility] Address [facility] [place] [address] Care Team Providers Care Bmw Service Technician Name Role Phone None, Provider Primary Care Provider Alecia Lubin CNM Primary Care Provider [phone] Heidy Mcdaniel NP Primary Care Provider [phone] José Chauhan MD Unavailable [phone] None, Provider Primary Care Provider Keisha Horn DNP Primary Care Provider Encounter Details Date Type Department Care Team (Late st Contact Info) Description 01/17/1996 Abstract [facility] Conversion , Generic ConversionMD Social History Tobacco Use Types Packs/Day Years [...] on filedocumented in this encounter Care Teams Bmw Service Technician Relationship Specialty Start Date End Date None, Provider, PCP - General 06/18/19 06/18/19 Alecia Hamilton CNM PCP - General ADVANCED PRACTICE MASSEUR/MASSEUSE 06/19/1902/17 Heidy Mcdaniel, TRACK REPAIR PERSON [address] [place] [address] [phone] PCP - General NURSE PRACTITIONER 03/17/20 08/10/22 None, Provider, PCP - General UNKNOWN PHYSICIAN SPECIALTY 08/11/22 07/05/23 Keisha Carvajal DNP [address] [place] [address] PCP - General NURSE PRACTITIONER 07/06/23 José Chauhan MD [address] [place] [phone] Consulting Physician INTERVENTIONAL CARDIOLOGY 03/17/20 documented as of this encounter
--- OUTSIDE RECORDS SUMMARY | 2025-01-12 17:05 | XMS_ITS | Encounter Summary ---
Author Organization [facility] Address [facility] [place] [address] Care Team Providers Care Cashier Gambling Name Role Phone None, Provider Primary Care Provider Alecia Lubin CNM Primary Care Provider [phone] Heidy Mcdaniel NP Primary Care Provider [phone] José Chauhan MD Unavailable [phone] None, Provider Primary Care Provider Keisha Hron DNP Primary Care Provider [phone] Encounter Details Date Type Department Care Team (Late st Contact Info) Description 06/11/2007 Abstract [facility] Conversion , Generic Conversion, Social [...] on filedocumented in this encounter Care Teams Cashier Gambling Relationship Specialty Start Date End Date None, Provider, PCP - General 06/18/19 06/18/19 Alecia Hamilton CNM PCP - General ADVANCED PRACTICE LEVEL VIAL GRINDER 06/19/1902/17 Heidy Mcdaniel, OPERATIONS INTERN [address] [place] [address] [phone] PCP - General NURSE PRACTITIONER 03/17/20 08/10/22 None, Provider, PCP - General UNKNOWN PHYSICIAN SPECIALTY 08/11/22 07/05/23 Keisha Carvajal DNP [address] [place] [address] PCP - General NURSE PRACTITIONER 07/06/23 José Chauhan MD [address] [place] [phone] Consulting Physician INTERVENTIONAL CARDIOLOGY 03/17/20 documented as of this encounter
--- OUTSIDE RECORDS SUMMARY | 2025-01-12 17:05 | XMS_ITS | Encounter Summary ---
Author Organization [facility] Address [address] [place] [address] Care Team Providers Care Solderer Assembler Name Role Phone José Chauhan MD Unavailable [phone] Keisha Carvajal DNP Primary Care Provider [phone] Reason for Referral * Imaging (Emergency) - New Request Specialty Diagnoses / Procedures Referred By Tree victor Referred To Contact RADIOLOGY Procedures CT ABD+PEL WO CON Alcon Camacho DO [address] [place] [address] Phone: tel: fax: Referral ID Status Reason Start Date Expiration Date V isits Requested Visits Authorized [id number] New Request 01/11/2025 01/11/2026 1 1 Reason for Visit * Reason Comments Abdominal Pain Encounter Details Date Type Department Care Team (Late st Contact Info) Description 01/11/2025 11:24 AM CDT - 01/11/2025 6:04 PM CDT Emergency [facility] Emergency Services [address] [place] [address] [place] [address] Alcon Camacho DO [address] [place] [address] Abdominal Pain Discharge Disposition: Home or Self Care (Routine Discharge) Social History Tobacco Use Types Packs/Day Years [...] PM CDT documented as of this encounter Last Filed Vital Signs Vital Sign Reading [...] Mass Index 28.32 01/11/2025 11:30 AM CDT documented in this encounter Functional Status * RETIRED Are [...] AM CDT Irish Pereira RN Active * Because of a physical, mental, or emotional condition, do you have difficulty doing errands alone such as visiting a doctor's office or shopping? Answer Date of Assessment Author Status No 06/19/2019 3:01 AM CDT Irish Pereira RN Active * Calculated C-SSRS Risk Score (Lifetime/Recent) Answer Date of Assessment Author Status No Risk Indicated 01/11/2025 11:35 AM CDT Dagen, Rufus n O, Nurse Student Active * [place] Suicide Severity Rating Scale (Screener/Recent Self-Report) Question Answer Date of Assessment Author Status 1. Wish to be (Past 1 Month) No 01/11/2025 11:35 AM CDT Gerry Cruz, Nurse Student Active 2. Non-Specific Active Suicidal Thoughts (Past 1 Month) No 01/11/2025 11:35 AM CDT Gerry Cruz, Nurse Student Active 6. Suicidal Behavior (Lifetime) No 01/11/2025 11:35 AM CDT Gerry Cruz, Nurse Student Active documented as of this encounter Mental Status * Because of a physical, mental, or emotional condition, do you have serious difficulty concentrating, remembering, or making decisions? Answer Entry Date Author Status No 06/19/2019 3:01 AM CDT Irish Pereira RN Active documented in this encounter Discharge Instructions * Attachments The following attachments cannot be sent through Care Everywhere. * Kidney Stones Discharge Instructions (Greek) documented in this encounter Medications at Time of Discharge ENSKYCE 0.15-30 MG-MCG tabletIndications:O ral contraceptive use Take 1 tablet by mouth daily. 28 tablet 05/27/2022 multi vitamin/minerals tablet Take 1 tablet by mouth daily. naproxen (NAPROSYN) 500 MG tablet Take 1 tablet (500 mg total) by mouth 2 (two) times daily with meals. 20 tablet 07/06/2023 venlafaxine XR (EFFEXOR-XR) 75 MG 24 hr capsule TAKE 1 CAPSULE BY MOUTH ONCE A DAY (AFTER COMPLETING 37.5MG WEEK DOSE) 12/09/2021 documented as of this encounter ED Notes * Nga Quiroga RN - 01/11/2025 5:58 PM CDT PT reviewed d/c instructions and verbalized understanding. Pt ambulated to ED exit. * Nga Quiroga RN - 01/11/2025 3:58 PM CDT Rounded on patient at this time, pt reports till having mild pain at this time. Temp taken and 100.6 noted. ERP updated. * Alcon Camacho DO - 01/11/2025 11:39 AM CDT [facility] Emergency Department Note Chief Complaint Chief Complaint Patient presents with Abdominal Pain History of Present Illness Ms. Ho presents to the ER with concerns of right abdominal pain, nausea, generalized weaknessand vomiting that began ~ 1000 this morning. She reports gradual worsening since the onset of her symptoms this morning. She denies any chest pain / pressure, shortness of breath, urinary complaints,diarrhea, fever / chills, or known exposure to ill persons. She state that the pain radiates to herright flank region and she has had similar symptoms when she had a kidney infection. Medical History ALLERGIES: Review of patient's allergies indicates: No Known Allergies MEDICATIONS: Prior to Admission medications Medication Sig Start Date End Date Taking? Authorizing Provider ENSJONATHANCE 0.15-30 MG-MCG tablet Take 1 tablet by mouth daily. 05/27/22 Nasra Keys V SUPERVISOR [employer]URNA[employer]-BC multi vitamin/minerals tablet Take 1 tablet by mouth daily. [facility] naproxen (NAPROSYN) 500 MG tablet Take 1 tablet (500 mg total) by mouth 2 (two) times daily with meals. 07/06/23 Karmen Orozco MD venlafaxine XR (EFFEXOR-XR) 75 MG 24 hr capsule TAKE 1 CAPSULE BY MOUTH ONCE A DAY (AFTER COMPLETING 37.5MG WEEK DOSE) 12/09/21 [facility] PAST MEDICAL HISTORY: Past Medical History[1] PAST SURGICAL HISTORY: Past Surgical History[2] FAMILY HISTORY: Family History[3] SOCIAL HISTORY: Social History[4] Review of Systems Review of Systems Gastrointestinal: Positive for abdominal pain, nausea and vomiting. Genitourinary: Positive for flank pain. Neurological: Positive for weakness. Physical Exam Filed Vitals: 01/11/25 1230 01/11/25 1300 01/11/25 1500 01/11/25 1619 BP: 117/79 101/53 Pulse: Resp: Temp: 100.6 ??F (38.1 ??C) 99.6 ??F (37.6 ??C) TempSrc: Temporal Oral SpO2: 90% 95% Weight: Height: Physical Exam Vitals and nursing note reviewed. Constitutional: General: She is not in acute distress. Appearance: She is ill-appearing. She is not toxic-appearing. HENT: Head: Normocephalic and atraumatic. Right Ear: External ear normal. Left Ear: External ear normal. Nose: Nose normal. Eyes: Extraocular Movements: Extraocular movements intact. Conjunctiva/sclera: Conjunctivae normal. Cardiovascular: Rate and Rhythm: Regular rhythm. Tachycardia present. Heart sounds: Normal heart sounds. Pulmonary: Effort: Pulmonary effort is normal. Breath sounds: Normal breath sounds. Abdominal: Palpations: Abdomen is soft. Tenderness: There is abdominal tenderness. Musculoskeletal: General: Normal range of motion. Skin: General: Skin is warm. Neurological: General: No focal deficit present. Mental Status: She is alert and oriented to person, place, and time. Mental status is at baseline. Sensory: No sensory deficit. Motor: No weakness. Psychiatric: Mood and Affect: Mood normal. Behavior: Behavior normal. Thought Content: Thought content normal. Diagnostic Studies / Procedures ELECTROCARDIOGRAMS: No results found for this visit on 01/11/25. LABORATORY STUDIES: Results for orders placed or performed during the hospital encounter of 01/11/25 CBC W/DIFF AUTOMATED Result Value Ref Range WBC 7.80 4.50 - 11.00 x10'3/uL RBC 4.52 4.00 - 5.20 x10'6/uL HGB 13.4 12.0 - 16.0 G/DL HCT 39.4 38.0 - 48.0 % MCV 87.2 80.0 - 100.0 FL MCH 29.6 26.0 - 34.0 PG MCHC 34.0 31.0 - 37.0 G/DL RDW 12.3 11.6 - 14.8 % PLT 205 130 - 400 x10'3/uL MPV 9.8 7.0 - 12.0 FL CBC COMMENT AUTOMATED RBC MORPHOLOGY AND PLATELET EVALUATION NORMAL NEUTROPHILS % 78.3 (H) 40.0 - 74.0 % LYMPHOCYTES % 13.7 (L) 14.0 - 46.0 % MONOCYTES % 7.2 4.0 - 13.0 % EOSINOPHILS 0.3 0.0 - 7.0 % BASOPHILS 0.1 0.0 - 3.0 % IMMATURE GRANS % 0.4 0.0 - 0.43 % NRBC % 0.0 % ABS. NEUTROPHILS TOTAL 6.11 1.69 - 7.81 x10'3/uL ABS. LYMPHOCYTES 1.07 0.21 - 5.42 x10'3/uL ABS. MONOCYTES 0.56 0.04 - 1.37 x10'3/uL ABS. EOSINOPHILS 0.02 0.00 - 0.68 x10'3/uL ABS. BASOPHILS 0.01 0.00 - 0.08 x10'3/uL ABS. IMMATURE GRANULOCYTES 0.03 0.00 - 0.06 x10'3/uL ABS. NUCLEATED RBC'S 0.00 0.00 - 0.01 x10'3/uL COMPREHENSIVE METABOLIC PANEL Result Value Ref Range GLUCOSE 91 70 - 99 MG/DL BUN 17 7 - 18 MG/DL CREATININE S/P/B 0.77 0.50 - 1.20 MG/DL SODIUM S/P/B 139 136 - 145 MMOL/L POTASSIUM S/P/B 4.0 3.5 - 5.1 MMOL/L CHLORIDE S/P/B 104 100 - 108 MMOL/L CO2 26.4 21.0 - 32.0 MMOL/L CALCIUM S/P/B 9.3 8.5 - 10.1 MG/DL BILIRUBIN TOTAL S/P/B 0.6 0.2 - 1.2 MG/DL TOTAL PROTEIN S/P/B 7.3 6.4 - 8.2 G/DL ALBUMIN S/P/B 3.6 3.4 - 5.0 G/DL AST 20 15 - 37 U/L ALT 38 14 - 55 U/L ALKALINE PHOSPHATASE S/P/B 118 50 - 136 U/L ANION GAP 8.6 5.0 - 15.0 MMOL/L BUN CREATININE RATIO 22.1 6 - 26 A/G RATIO 1.0 1.0 - 2.5 RATIO GFR ESTIMATE >90 >90 ML/MIN/1.73 M2 LIPASE Result Value Ref Range LIPASE 35 16 - 77 UNITS/L LACTIC ACID W REFLEX (SEPSIS) Result Value Ref Range LACTIC ACID VENOUS 0.7 0.5 - 2.0 MMOL/L URINALYSIS AUTO DIP Result Value Ref Range COLOR (U) YELLOW YELLOW TRANSPARENCY CLEAR CLEAR SPECIFIC GRAVITY (U) 1.010 1.010 - 1.025 U PH 8.0 5.0 - 8.5 LEUKOCYTES (U) NEGATIVE NEGATIVE NITRITES NEGATIVE NEGATIVE PROTEIN RANDOM (U) NEGATIVE NEGATIVE GLUCOSE (U) NEGATIVE NEGATIVE KETONES MG/DL (U) NEGATIVE NEGATIVE UROBILINOGEN 0.2 0.2 - 1.0 EU/DL BILIRUBIN (U) NEGATIVE NEGATIVE BLOOD (U) TRACE (A) NEGATIVE TEST URINE Result Value Ref Range URINE HCG TEST NEGATIVE NEGATIVE IMAGING STUDIES CT ABD+PEL WO CON Final Result by User, [id number] (01/11 6604) [address] [place] [address] EXAMINATION: CT Abdomen and Pelvis without contrast [...] lesions. No unexpected radiopaque foreign bodies. ===== IMPRESSION: ===== 1. Punctate calcification in [...] By: Seferino Bernard MD, 01/11/2025 2:45 PM ED Course / Medical Decision Making Medical Decision Making VS reviewed - tachycardia noted. Non toxic. No distress. PE unremarkable except tachycardia. No peritoneal findings and negative Leeroy's sign. NS 1 L IV + ondansetron 4 mg IV + morphine 4 mg IV administered while awaiting lab results. CBC, CMP, lactic acid, UA, and lipase are normal. Urine hCG is negative. Pain and nausea improved and she has been resting comfortably. CT of abdomen and pelvis shows a punctate calcification in the right adnexa... and additionally assymetry enlargement of the right ovary with low density areas measuring up to 2.8 cm. Cysts favored. Ketorolac 30 mg IV was given for additional discomfort in light of CT findings that are consistent with a ureteral calculus and right ovarian cyst. Findings discussed with Ms. Ho. She was pain free at time of discharge.No evidence of infection is present. Amount and/or Complexity of Data Reviewed Labs: ordered. Decision-making details documented in ED Course. Radiology: ordered. Decision-making details documented in ED Course. Medications sodium chloride 0.9% bolus infusion 1,000 mL (0 mLs Intravenous Infusion Stop Time 01/11/25 1342) ondansetron (ZOFRAN) injection 4 mg (4 mg Intravenous Given 01/11/25 1204) morphine injection 4 mg (4 mg Intravenous Given 01/11/25 1204) ketorolac (TORADOL) injection 30 mg (30 mg Intravenous Given 01/11/25 1634) Clinical Impression Right ureteral calculus (Primary) Right ovarian cyst Current Discharge Medication List Disposition: Discharge Follow-Up: Keisha Carvajal [facility] [address] [facility] [address] Schedule an appointment as soon as possible for a visit in 3 days ALCON CAMACHO DO 01/11/2025 [1] Past Medical History: Diagnosis Date Anxiety Depression Fatigue Migraines Palpitations PTSD (post-traumatic stress disorder) [2] Past Surgical History: Procedure Laterality Date SECTION CHOLECYSTECTOMY LAPAROSCOPY FOR ECTOPIC TONSILLECTOMY AND ADENOIDECTOMY [3] Family History Problem Relation Name Age of Onset Hyperlipidemia Father Hypertension Father Stroke Father Heart Attack Father Valve Disease Mother Stent Cardiac Paternal Grandmother Stroke Paternal Grandmother Stent Cardiac Paternal Grandfather [4] Social History Tobacco Use Smoking status: Former Current packs/day: 0.50 Average packs/day: 0.5 packs/day for 15.0 years (7.5 ttl pk-yrs) Types: Cigarettes, Electronic Cigarettes Smokeless tobacco: Never Vaping Use Vaping status: Every Day Substances: Nicotine Devices: Manaltoble tank Substance Use Topics Alcohol use: Yes Comment: 1-2 drinks per week Drug use: No Alcon Camacho DO 01/11/251750 * Gerry Cruz, Nurse Student - 01/11/2025 11:37 AM CDT Pt presented to ED with complaints of abdominal pain on the RUQ and RLQ as well as minor flank pain. Pt stated the pain woke her up this morning around 10:30. She stated she has had 2 kidney infections in the past, last one being around 6 months ago. She stated she has been feeling the urge to vomit and have BM, but has not been able to. Pt denied taking any medications today. Cosigned by Nga Quiroga RN at 01/11/2025 12:19 PM CDT documented in this encounter Plan of Treatment Not on file documented as of this encounter Procedures Procedure Name Priority Date/Time Associated Diagnosis Comments CT ABD+PEL WO CON STAT 01/11/2025 2:3 9 PM CDT TEST URINE STAT 01/11/2025 2:20 PM CDT URINALYSIS AUTO DIP STAT 01/11/2025 2 :20 PM CDT LACTIC ACID W REFLEX (SEPSIS) STAT 01/11/2025 12:15 PM CDT COMPREHENSIVE METABOLIC PANEL STAT 01/11/2025 12:15 PM CDT CBC W/DIFF AUTOMATED STAT 01/11/2025 12:15 PM CDT LIPASE STAT 01/11/2025 12:15 PM CDT documented in this encounter Results * CT ABD+PEL WO CON (01/11/2025 [...] 2:45 PM Narrative 01/11/2025 2:54 PM CDT [address] [place] [address] EXAMINATION: CT Abdomen and Pelvis without contrast [...] Procedure Note Seferino Bernard MD - 01/11/[address] [place] [address] EXAMINATION: CT Abdomen and Pelvis without contrast [...] By: Seferino Bernard MD, 01/11/2025 2:45 PM Alcon Camacho DO CT Final Result * TEST URINE (01/11/2025 2:20 PM CDT) URINE HCG TEST NEGATIVE NEGATIVE 01/11/2025 2:31 PM CDT [facility] Comment: VERY DILUTE URINE SPECIMENS MAY NOT CONTAIN EDITOR IN CHIEF NEWSPAPER LEVELS OF HCG. IF IS STILL SUSPECTED, A SERUM HCG TEST IS RECOMMENDED. URINE SPECIMEN FROM URETHRA / Unknown 01/11/2025 2:20 PM CDT Alcon Harrell Doug DO URINE ORDERABLES Final Result [address] [place] [address], [place] * (ABNORMAL) URINALYSIS AUTO DIP (01/11/2025 2:20 PM CDT) COLOR (U) YELLOW YELLOW 01/11/2025 2:33 PM CDT [facility] TRANSPARENCY CLEAR CLEAR 01/11/2025 2:33 PM CDT [facility] SPECIFIC GRAVITY (U) 1.010 1.010 - 1.025 01/11/2025 2:33 PM CDT [facility] U PH 8.0 5.0 - 8.5 01/11/2025 2:33 PM CDT [facility] LEUKOCYTES (U) NEGATIVE NEGATIVE 01/11/2025 2:33 PM CDT [facility] NITRITES NEGATIVE NEGATIVE 01/11/2025 2:33 PM CDT [facility] PROTEIN RANDOM (U) NEGATIVE NEGATIVE 01/11/2025 2:33 PM CDT [facility] GLUCOSE (U) NEGATIVE NEGATIVE 01/11/2025 2:33 PM CDT [facility] KETONES MG/DL (U) NEGATIVE NEGATIVE 01/11/2025 2:33 PM CDT [facility] UROBILINOGEN 0.2 0.2 - 1.0 EU/DL 01/11/2025 2:33 PM CDT [facility] BILIRUBIN (U) NEGATIVE NEGATIVE 01/11/2025 2:33 PM CDT [facility] BLOOD (U) TRACE(A) NEGATIVE 01/11/2025 2:33 PM CDT [facility] URINE SPECIMEN OBTAINED BY CLEAN CATCH PROCEDURE / Unknown 01/11/2025 2:20 PM CDT us Alcon Camacho DO URINE ORDERABLES Final Result Performing Organization Address [facility] de Phone Number [facility] [address] [place] [address], [place] * LACTIC ACID W REFLEX (SEPSIS) (01/11/2025 12:15 PM CDT) LACTIC ACID VENOUS 0.7 0.5 - 2.0 MMOL/L 01/11/2025 12:51 PM CDT [facility] 01/11/2025 12:1 5 PM CDT us Alcon Camacho DO LABORATORY Final Result Performing Organization Address [facility] de Phone Number [facility] [address] [place] [address], [place] * LIPASE (01/11/2025 12:15 PM CDT) LIPASE 35 16 - 77 UNITS/L 01/11/2025 12:53 PM CDT [facility] 01/11/2025 12:1 5 PM CDT us Alcon Camacho DO LABORATORY Final Result Performing Organization Address [facility] de Phone Number [facility] [address] [place] [address], [place] * COMPREHENSIVE METABOLIC PANEL (01/11/2025 12:15 PM CDT) GLUCOSE 91 70 - 99 MG/DL 01/11/2025 12:53 PM CDT [facility] BUN 17 7 - 18 MG/DL 01/11/2025 12:53 PM CDT [facility] CREATININE S/P/B 0.77 0.50 - 1.20 MG/DL 01/11/2025 12:53 PM CDT [facility] SODIUM S/P/B 139 136 - 145 MMOL/L 01/11/2025 12:53 PM CDT [facility] POTASSIUM S/P/B 4.0 3.5 - 5.1 MMOL/L 01/11/2025 12:53 PM CDT [facility] CHLORIDE S/P/B 104 100 - 108 MMOL/L 01/11/2025 12:53 PM CDT [facility] CO2 26.4 21.0 - 32.0 MMOL/L 01/11/2025 12:53 PM CDT [facility] CALCIUM S/P/B 9.3 8.5 - 10.1 MG/DL 01/11/2025 12:53 PM CDT [facility] BILIRUBIN TOTAL S/P/B 0.6 0.2 - 1.2 MG/DL 01/11/2025 12:53 PM CDT [facility] Comment: THIS ASSAY IS NOT RECOMMENDED FOR PATIENTS UNDERGOING TREATMENT WITH ELTROMBOPAG DUE TO THE POTENTIAL FOR FALSELY ELEVATED RESULTS. TOTAL PROTEIN S/P/B 7.3 6.4 - 8.2 G/DL 01/11/2025 12:53 PM CDT [facility] ALBUMIN S/P/B 3.6 3.4 - 5.0 G/DL 01/11/2025 12:53 PM CDT [facility] AST 20 15 - 37 U/L 01/11/2025 12:53 PM CDT [facility] ALT 38 14 - 55 U/L 01/11/2025 12:53 PM CDT [facility] ALKALINE PHOSPHATASE S/P/B 118 50 - 136 U/L 01/11/2025 12:53 PM CDT [facility] ANION GAP 8.6 5.0 - 15.0 MMOL/L 01/11/2025 12:53 PM CDT [facility] BUN CREATININE RATIO 22.1 6 - 26 01/11/2025 12:53 PM CDT [facility] A/G RATIO 1.0 1.0 - 2.5 RATIO 01/11/2025 12:53 PM CDT [facility] GFR ESTIMATE >90 >90 ML/MIN/1.7 3 M2 01/11/2025 12:53 PM CDT [facility] Comment: NOTE: eGFR is not calculated for patients <18 years of age. This is an estimated GFR calculation using the new CKD EPI creatinine equation without race and so does not require a correction factor for race. This estimated GFR should not be used for calculating drug doses. 01/11/2025 12:1 5 PM CDT us Alcon Camacho DO LABORATORY Final Result [address] [place] [address], [place] * (ABNORMAL) CBC W/DIFF AUTOMATED (01/11/2025 12:15 PM CDT) WBC 7.80 4.50 - 11.00 x10'3/uL 01/11/2025 12:32 PM CDT [facility] RBC 4.52 4.00 - 5.20 x10'6/uL 01/11/2025 12:32 PM CDT [facility] HGB 13.4 12.0 - 16.0 G/DL 01/11/2025 12:32 PM CDT [facility] HCT 39.4 38.0 - 48.0 % 01/11/2025 12:32 PM CDT [facility] MCV 87.2 80.0 - 100.0 FL 01/11/2025 12:32 PM CDT [facility] MCH 29.6 26.0 - 34.0 PG 01/11/2025 12:32 PM CDT [facility] MCHC 34.0 31.0 - 37.0 G/DL 01/11/2025 12:32 PM CDT [facility] RDW 12.3 11.6 - 14.8 % 01/11/2025 12:32 PM CDT [facility] PLT 205 130 - 400 x10'3/uL 01/11/2025 12:32 PM CDT [facility] MPV 9.8 7.0 - 12.0 FL 01/11/2025 12:32 PM CDT [facility] CBC COMMENT AUTOMATED RBC MORPHOLOGY AND PLATELET EVALUATION NORMAL 01/11/2025 12:32 PM CDT [facility] NEUTROPHILS % 78.3(H) 40.0 - 74.0 % 01/11/2025 12:32 PM CDT [facility] LYMPHOCYTES % 13.7(L) 14.0 - 46.0 % 01/11/2025 12:32 PM CDT [facility] MONOCYTES % 7.2 4.0 - 13.0 % 01/11/2025 12:32 PM CDT [facility] EOSINOPHILS 0.3 0.0 - 7.0 % 01/11/2025 12:32 PM CDT [facility] BASOPHILS 0.1 0.0 - 3.0 % 01/11/2025 12:32 PM CDT [facility] IMMATURE GRANS % 0.4 0.0 - 0.43 % 01/11/2025 12:32 PM CDT [facility] NRBC % 0.0 % 01/11/2025 12:32 PM CDT [facility] ABS. NEUTROPHILS TOTAL 6.11 1.69 - 7.81 x10'3/uL 01/11/2025 12:32 PM CDT [facility] ABS. LYMPHOCYTES 1.07 0.21 - 5.42 x10'3/uL 01/11/2025 12:32 PM CDT [facility] ABS. MONOCYTES 0.56 0.04 - 1.37 x10'3/uL 01/11/2025 12:32 PM CDT [facility] ABS. EOSINOPHILS 0.02 0.00 - 0.68 x10'3/uL 01/11/2025 12:32 PM CDT [facility] ABS. BASOPHILS 0.01 0.00 - 0.08 x10'3/uL 01/11/2025 12:32 PM CDT [facility] ABS. IMMATURE GRANULOCYTES 0.03 0.00 - 0.06 x10'3/uL 01/11/2025 12:32 PM CDT [facility] ABS. NUCLEATED RBC'S 0.00 0.00 - 0.01 x10'3/uL 01/11/2025 12:32 PM CDT [facility] 01/11/2025 12:1 5 PM CDT us Alcon Camacho DO LABORATORY Final Result [facility] [address] [place] [address], documented in this encounter Visit Diagnoses Diagnosis Right ureteral calculus- Primary Calculus of ureter Right ovarian cyst Other and unspecified ovarian cyst documented in this encounter Administered Medications Inactive Administered Medications - up to 3 most recent administrations Medication Order MAR Action Action Date Dose Rate Site ketorolac (TORADOL) injection 30 mg 30 mg, Intravenous, Once, 1 dose, On 01/11/25 at 1630, For IV administration, give over 15 seconds. Given 01/11/2025 4:34 PM CDT 30 mg morphine injection 4 mg 4 mg, Intravenous, Once, 1 dose, On 01/11/25 at 1145 Given 01/11/2025 12:04 PM CDT 4 mg ondansetron (ZOFRAN) injection 4 mg 4 mg, Intravenous, Once, 1 dose, On 01/11/25 at 1145, IV push over 2-5 minutes. Given 01/11/2025 12:04 PM CDT 4 mg sodium chloride 0.9% bolus infusion 1,000 mL 1,000 mL, Intravenous, Administer over 60 Minutes, Once, 1 dose, On 01/11/25 at 1145 New Bag 01/11/2025 12:03 PM CDT 1,000 mLs 1000 mL/hr documented in this encounter Active and Recently Administered Medications Times are shown in CDT. Scheduled Medication Order 01/09/2025 01/10/2025 01/11/2025 ketorolac (TORADOL) injection 30 mg (COMPLETED) 30 mg, Intravenous, Once, 1 dose, On 01/11/25 at 1630, For IV administration, give over 15 seconds. 1634 (Given - Provid er: Jolly Montes Nurse Student) morphine injection 4 mg (COMPLETED) 4 mg, Intravenous, Once, 1 dose, On 01/11/25 at 1145 1204 (Given - Provid er: Nurse Madelin Gregorio) ondansetron (ZOFRAN) injection 4 mg (COMPLETED) 4 mg, Intravenous, Once, 1 dose, On 01/11/25 at 1145, IV push over 2-5 minutes. 1204 (Given - Provid er: Nurse Madelin Gregorio) sodium chloride 0.9% bolus infusion 1,000 mL (COMPLETED) 1,000 mL, Intravenous, Administer over 60 Minutes, Once, 1 dose, On 01/11/25 at 1145 1203 (New Bag - Prov ider: Nurse Madelin Gregorio)1342 (Infusion Stop Time - Provider: Leena Baeza RN) documented in this encounter Care Teams Solderer Assembler Relationship Specialty Start Date End Date Keisha Carvajal DNP [address] [place] [address] PCP - General NURSE PRACTITIONER 07/06/23 José Chauhan MD Consulting Physician INTERVENTIONAL CARDIOLOGY 03/17/20 documented as of this encounter
--- OUTSIDE RECORDS SUMMARY | 2025-01-12 17:05 | XMS_ITS | Encounter Summary ---
Author Organization [facility] Address [facility] [place] [address] Care Team Providers Care Sorting Supervisor Name Role Phone None, Provider Primary Care Provider Alecia Lubin CNM Primary Care Provider [phone] Heidy Mcdaniel NP Primary Care Provider [phone] José Chauhan MD Unavailable [phone], Provider Primary Care Provider Keisha Horn DNP Primary Care Provider [phone] Encounter Details Date Type Department Care Team (Late st Contact Info) Description 09/22/2004 Abstract [facility] Conversion , Generic Conversion, Social History [...] on filedocumented in this encounter Care Teams Sorting Supervisor Relationship Specialty Start Date End Date None, Provider, PCP - General 06/18/19 06/18/19 Alecia Hamilton CNM PCP - General ADVANCED PRACTICE SPACE AND MISSILE OPERATIONS 06/19/1902/17 Heidy Mcdaniel, LABORATORY VETERINARIAN [address] [place] [phone] PCP - General NURSE PRACTITIONER 03/17/20 08/10/22 None, Provider, PCP - General UNKNOWN PHYSICIAN SPECIALTY 08/11/22 07/05/23 Keisha Carvajal DNP [address] [place] [address] PCP - General NURSE PRACTITIONER 07/06/23 José Chauhan MD [address] [place] [phone] Consulting Physician INTERVENTIONAL CARDIOLOGY 03/17/20 documented as of this encounter
--- OUTSIDE RECORDS SUMMARY | 2025-01-12 17:05 | XMS_ITS | Encounter Summary ---
Author Organization [facility] Address [facility] [place] [address] Care Team Providers Care Manager Latin Name Role Phone None, Provider Primary Care Provider Alecia Lubin CNM Primary Care Provider [phone] Heidy Mcdaniel NP Primary Care Provider [phone] José Chauhan MD Unavailable [phone] None, Provider Primary Care Provider Keisha Horn DNP Primary Care Provider [phone] Encounter Details Date Type Department Care Team (Late st Contact Info) Description 08/15/2006 Abstract [facility] Conversion , Generic Conversion, Social History [...] filedocumented in this encounter Care Teams Manager Latin Relationship Specialty Start Date End Date None, Provider, PCP - General 06/18/19 06/18/19 Alecia Hamilton CNM PCP - General ADVANCED PRACTICE DEVELOPMENTAL MATHEMATICS PROFESSOR 06/19/1902/17 Heidy Mcdaniel, INFORMATION SYSTEMS PROFESSOR [address] [place] [address] [phone] PCP - General NURSE PRACTITIONER 03/17/20 08/10/22 None, Provider, PCP - General UNKNOWN PHYSICIAN SPECIALTY 08/11/22 07/05/23 Keisha Carvajal DNP [address] [place] [address] PCP - General NURSE PRACTITIONER 07/06/23 José Chauhan MD [address] [place] [phone] Consulting Physician INTERVENTIONAL CARDIOLOGY 03/17/20 documented as of this encounter
--- OUTSIDE RECORDS SUMMARY | 2025-01-12 17:05 | XMS_ITS | Encounter Summary ---
Author Organization [facility] Address [facility] [place] [address] Care Team Providers Care Process Improvement Manager Name Role Phone None, Provider Primary Care Provider Alecia Lubin CNM Primary Care Provider [phone] Heidy Mcdaniel NP Primary Care Provider [phone] José Chauhan MD Unavailable [phone] None, Provider Primary Care Provider Keisha Horn DNP Primary Care Provider [phone] Encounter Details Date Type Department Care Team (Late st Contact Info) Description 01/02/2008 Abstract [facility] Conversion , Generic [...] on filedocumented in this encounter Care Teams Process Improvement Manager Relationship Specialty Start Date End Date None, Provider, PCP - General 06/18/19 06/18/19 Alecia Hamilton CNM PCP - General ADVANCED PRACTICE SECURITY CHIEF MUSEUM 06/19/1902/17 Heidy Mcdaniel, CANE PILER [address] [place] [address] [phone] PCP - General NURSE PRACTITIONER 03/17/20 08/10/22 None, Provider, PCP - General UNKNOWN PHYSICIAN SPECIALTY 08/11/22 07/05/23 Keisha Carvajal DNP [address] [place] [address] PCP - General NURSE PRACTITIONER 07/06/23 José Chauhan MD [address] [place] [phone] Consulting Physician INTERVENTIONAL CARDIOLOGY 03/17/20 documented as of this encounter
--- OUTSIDE RECORDS SUMMARY | 2025-01-12 17:05 | XMS_ITS | Encounter Summary ---
Author Organization [facility] Address [facility] [place] [address] Care Team Providers Care Director Global Medical Affairs Name Role Phone None, Provider Primary Care Provider Alecia Lubin CNM Primary Care Provider [phone] Heidy Mcdaniel NP Primary Care Provider [phone] José Chauhan MD Unavailable [phone] None, Provider Primary Care Provider Keisha Horn DNP Primary Care Provider [phone] Encounter Details Date Type Department Care Team (Late st Contact Info) Description 08/29/2007 Abstract [facility] Conversion , Generic Conversion, [...] on filedocumented in this encounter Care Teams Director Global Medical Affairs Relationship Specialty Start Date End Date None, Provider, PCP - General 06/18/19 06/18/19 Alecia Hamilton CNM PCP - General ADVANCED PRACTICE BUSINESS PROCESS CONSULTANT 06/19/1902/17 Heidy Mcdaniel, BUSINESS INTELLIGENCE MANAGER [address] [place] [address] [phone] PCP - General NURSE PRACTITIONER 03/17/20 08/10/22 None, Provider, PCP - General UNKNOWN PHYSICIAN SPECIALTY 08/11/22 07/05/23 Keisha Carvajal DNP [address] [place] [address] PCP - General NURSE PRACTITIONER 07/06/23 José Chauhan MD [address] [place] [phone] Consulting Physician INTERVENTIONAL CARDIOLOGY 03/17/20 documented as of this encounter
--- OUTSIDE RECORDS SUMMARY | 2025-01-12 17:05 | XMS_ITS | Encounter Summary ---
Author Organization [facility] Address [facility] [place] [address] Care Team Providers Care Motor Coach Operator Name Role Phone None, Provider Primary Care Provider Alecia Lubin CNM Primary Care Provider [phone] Heidy Mcdaniel NP Primary Care Provider [phone] José Chauhan MD Unavailable [phone], Provider Primary Care Provider Keisha Horn DNP Primary Care Provider [phone] Encounter Details Date Type Department Care Team (Late st Contact Info) Description 03/26/2008 Abstract [facility] Conversion , Generic [...] on filedocumented in this encounter Care Teams Motor Coach Operator Relationship Specialty Start Date End Date None, Provider, PCP - General 06/18/19 06/18/19 Alecia Hamilton CNM PCP - General ADVANCED PRACTICE UTILIZATION REVIEW COORDINATOR 06/19/1902/17 Heidy Mcdaniel, PASTE UP WORKER [address] [place] [address] [phone] PCP - General NURSE PRACTITIONER 03/17/20 08/10/22 None, Provider, PCP - General UNKNOWN PHYSICIAN SPECIALTY 08/11/22 07/05/23 Keisha Carvajal DNP [address] [place] [address] PCP - General NURSE PRACTITIONER 07/06/23 José Chauhan MD [address] [place] [phone] Consulting Physician INTERVENTIONAL CARDIOLOGY 03/17/20 documented as of this encounter
--- OUTSIDE RECORDS SUMMARY | 2025-01-12 17:05 | XMS_ITS | Encounter Summary ---
Author Organization [facility] Address [address] [place] [address] Care Team Providers Care Household Appliance Repairer Name Role Phone None, Provider Primary Care Provider Alecia Lubin CNM Primary Care Provider [phone] Heidy Mcdaniel NP Primary Care Provider [phone] José Chauhan MD Unavailable [phone] None, Provider Primary Care Provider Keisha Horn DNP Primary Care Provider [phone] Encounter Details Date Type Department Care Team (Late st Contact Info) Description 10/22/[address] [facility] Conversion [address] [place], [place] [address] , Generic Conversion, Social History Tobacco Use [...] on filedocumented in this encounter Care Teams Household Appliance Repairer Relationship Specialty Start Date End Date None, ProviderMD PCP - General 06/18/19 06/18/19 Alecia Hamilton CNM PCP - General ADVANCED PRACTICE MANAGER WELDING 06/19/1902/17 Heidy Mcdaniel NP [address] [place] [phone] PCP - General NURSE PRACTITIONER 03/17/20 08/10/22 None, Provider, PCP - General UNKNOWN PHYSICIAN SPECIALTY 08/11/22 07/05/23 Keisha Carvajal DNP [address] [place] [address] PCP - General NURSE PRACTITIONER 07/06/23 José Chauhan MD [address] [place] [phone] Consulting Physician INTERVENTIONAL CARDIOLOGY 03/17/20 documented as of this encounter
--- OUTSIDE RECORDS SUMMARY | 2025-01-12 17:05 | XMS_ITS | Encounter Summary ---
Author Organization [facility] Address [facility] [place] [address] Care Team Providers Care Solar Field Service Technician Name Role Phone None, Provider Primary Care Provider Alecia Lubin CNM Primary Care Provider [phone] Heidy Mcdaniel NP Primary Care Provider [phone] José Chauhan MD Unavailable [phone] None, Provider Primary Care Provider Keisha Horn DNP Primary Care Provider [phone] Encounter Details Date Type Department Care Team (Late st Contact Info) Description 10/07/2004 Abstract [facility] Conversion , [...] on filedocumented in this encounter Care Teams Solar Field Service Technician Relationship Specialty Start Date End Date None, Provider, PCP - General 06/18/19 06/18/19 Alecia Hamilton CNM PCP - General ADVANCED PRACTICE CRIB TENDER 06/19/1902/17 Heidy Mcdaniel, BATTERY PARTS ASSEMBLER [address] [place] [address] [phone] PCP - General NURSE PRACTITIONER 03/17/20 08/10/22 None, Provider, PCP - General UNKNOWN PHYSICIAN SPECIALTY 08/11/22 07/05/23 Keisha Carvajal DNP [address] [place] [address] PCP - General NURSE PRACTITIONER 07/06/23 José Chauhan MD [address] [place] [phone] Consulting Physician INTERVENTIONAL CARDIOLOGY 03/17/20 documented as of this encounter
--- OUTSIDE RECORDS SUMMARY | 2025-01-12 17:05 | XMS_ITS | Encounter Summary ---
Author Organization [facility] Address [facility] [place] [address] Care Team Providers Care Dye House Supervisor Name Role Phone None, Provider Primary Care Provider Alecia Lubin CNM Primary Care Provider [phone] Heidy Mcdaniel NP Primary Care Provider [phone] José Chauhan MD Unavailable [phone], Provider Primary Care Provider Keisha Horn DNP Primary Care Provider [phone] Encounter Details Date Type Department Care Team (Late st Contact Info) Description 11/11/2005 Abstract [facility] Conversion , [...] on filedocumented in this encounter Care Teams Dye House Supervisor Relationship Specialty Start Date End Date None, Provider, PCP - General 06/18/19 06/18/19 Alecia Hamilton CNM PCP - General ADVANCED PRACTICE BUSINESS SERVICES ANALYST 06/19/1902/17 Heidy Mcdaniel, MANAGER ROOM [address] [place] [address] [phone] PCP - General NURSE PRACTITIONER 03/17/20 08/10/22 None, Provider, PCP - General UNKNOWN PHYSICIAN SPECIALTY 08/11/22 07/05/23 Keisha Carvajal DNP [address] [place] [address] PCP - General NURSE PRACTITIONER 07/06/23 José Chauhan MD [address] [place] [phone] Consulting Physician INTERVENTIONAL CARDIOLOGY 03/17/20 documented as of this encounter
[2025-01-12 17:08] VITALS: BP 112/65; PULSE 107; RESP 20; TEMP 36.8; O2SAT 100
--- OUTSIDE RECORDS SUMMARY | 2025-01-12 19:33 | XMS_ITS | Encounter Summary ---
Author Organization [facility] Address [facility] [place] [address] Care Team Providers Care Vocational Teacher Name Role Phone None, Provider Primary Care Provider Alecia Lubin CNM Primary Care Provider [phone] Heidy Mcdaniel NP Primary Care Provider [phone] José Chauhan MD Unavailable [phone], Provider Primary Care Provider Keisha Horn DNP Primary Care Provider [phone] Encounter Details Date Type Department Care Team (Late st Contact Info) Description 04/01/2008 Abstract [facility] Conversion , Generic [...] on filedocumented in this encounter Care Teams Vocational Teacher Relationship Specialty Start Date End Date None, Provider, PCP - General 06/18/19 06/18/19 Alecia Hamilton CNM PCP - General ADVANCED PRACTICE WEB APPLICATIONS PROGRAMMER 06/19/1902/17 Heidy Mcdaniel, WATER USE INSPECTOR [address] [place] [address] [phone] PCP - General NURSE PRACTITIONER 03/17/20 08/10/22 None, Provider, PCP - General UNKNOWN PHYSICIAN SPECIALTY 08/11/22 07/05/23 Keisha Carvajal DNP [address] [place] [address] PCP - General NURSE PRACTITIONER 07/06/23 José Chauhan MD [address] [place] [phone] Consulting Physician INTERVENTIONAL CARDIOLOGY 03/17/20 documented as of this encounter
--- OUTSIDE RECORDS SUMMARY | 2025-01-12 19:33 | XMS_ITS | Encounter Summary ---
Author Organization [facility] Address [facility] [place] [address] Care Team Providers Care Exhibition Specialist Name Role Phone None, Provider Primary Care Provider Alecia Lubin CNM Primary Care Provider [phone] Heidy Mcdaniel NP Primary Care Provider [phone] José Chauhan MD Unavailable [phone] None, Provider Primary Care Provider Keisha Horn DNP Primary Care Provider [phone] Encounter Details Date Type Department Care Team (Late st Contact Info) Description 01/02/[address] [facility] Conversion , Generic Conversion, [...] on filedocumented in this encounter Care Teams Exhibition Specialist Relationship Specialty Start Date End Date None, Provider, PCP - General 06/18/19 06/18/19 Alecia Hamilton CNM PCP - General ADVANCED PRACTICE SURVEY PARTY CHIEF 06/19/1902/17 Heidy Mcdaniel, TREE WRAPPER [address] [place] [address] [phone] PCP - General NURSE PRACTITIONER 03/17/20 08/10/22 None, Provider, PCP - General UNKNOWN PHYSICIAN SPECIALTY 08/11/22 07/05/23 Keisha Carvajal DNP [address] [place] [address] PCP - General NURSE PRACTITIONER 07/06/23 José Chauhan MD [address] [place] [phone] Consulting Physician INTERVENTIONAL CARDIOLOGY 03/17/20 documented as of this encounter
--- OUTSIDE RECORDS SUMMARY | 2025-01-12 19:33 | XMS_ITS | Encounter Summary ---
Author Organization [facility] Address [facility] [place] [address] Care Team Providers Care Logistics Operations Manager Name Role Phone None, Provider Primary Care Provider Alecia Lubin CNM Primary Care Provider [phone] Heidy Mcdaniel NP Primary Care Provider [phone] José Chauhan MD Unavailable [phone] None, Provider Primary Care Provider Keisha Horn DNP Primary Care Provider [phone] Encounter Details Date Type Department Care Team (Late st Contact Info) Description 06/27/2006 Abstract [facility] Conversion , Generic [...] on filedocumented in this encounter Care Teams Logistics Operations Manager Relationship Specialty Start Date End Date None, Provider, PCP - General 06/18/19 06/18/19 Alecia Hamilton CNM PCP - General ADVANCED PRACTICE FUEL OPERATOR 06/19/1902/17 Heidy Mcdaniel, DIAGNOSTIC SALES SPECIALIST [address] [place] [address] [phone] PCP - General NURSE PRACTITIONER 03/17/20 08/10/22 None, Provider, PCP - General UNKNOWN PHYSICIAN SPECIALTY 08/11/22 07/05/23 Keisha Carvajal DNP [address] [place] [address] PCP - General NURSE PRACTITIONER 07/06/23 José Chauhan MD [address] [place] [phone] Consulting Physician INTERVENTIONAL CARDIOLOGY 03/17/20 documented as of this encounter
--- OUTSIDE RECORDS SUMMARY | 2025-01-12 19:33 | XMS_ITS | Encounter Summary ---
Author Organization [facility] Address [address] [place] [address] Care Team Providers Care Exhibit Builder Name Role Phone José Chauhan MD Unavailable Keisha Carvajal DNP Primary Care Provider [phone] Reason for Referral * Imaging (Emergency) - New Request Specialty Diagnoses / Procedures Referred By Tree victor Referred To Contact RADIOLOGY Procedures CT ABD+PEL WO CON Alcon Camacho DO [address] [place] [address] Phone: tel: fax: Referral ID Status Reason Start Date Expiration Date V isits Requested Visits Authorized [id number] New Request 01/11/2025 01/11/2026 1 1 Reason for Visit * Reason Comments Abdominal Pain Encounter Details Date Type Department Care Team (Late st Contact Info) Description 01/11/2025 11:24 AM CDT - 01/11/2025 6:04 PM CDT Emergency [facility] [address] [place] [address] [place] [address] Alcon Camacho DO [address] [place] [address] Abdominal Pain Discharge Disposition: Home or [...] Rufus n O, Nurse Student Active * [place] Suicide Severity Rating Scale (Screener/Recent Self-Report) Question [...] Care Everywhere. * Kidney Stones Discharge Instructions (Faroese) documented in this encounter Medications at Time [...] Camacho DO - 01/11/2025 11:39 AM CDT [facility] Emergency Department Note Chief Complaint Chief Complaint [...] by mouth daily. 05/27/22 Nasra Keys V SPECIAL EDUCATION PROFESSIONAL-BC multi vitamin/minerals tablet Take 1 tablet by [...] ABD+PEL WO CON Final Result by User, [id number] (01/11 7669) [address] [place] [address] EXAMINATION: CT Abdomen and Pelvis without contrast [...] Medication List Disposition: Discharge Follow-Up: Keisha Carvajal [facility] [address] [facility] [address] Schedule an appointment as soon as possible [...] Vaping status: Every Day Substances: Nicotine Devices: Adzunable tank Substance Use Topics Alcohol use: Yes [...] taking any medications today. Cosigned by Nga Quiroag RN at 01/11/2025 12:19 PM CDT documented [...] 2:45 PM Narrative 01/11/2025 2:54 PM CDT [address] [place] [address] EXAMINATION: CT Abdomen and Pelvis without contrast [...] Procedure Note Seferino Bernard MD - 01/11/[address] [place] [address] EXAMINATION: CT Abdomen and Pelvis without contrast [...] TEST NEGATIVE NEGATIVE 01/11/2025 2:31 PM CDT [facility] Comment: VERY DILUTE URINE SPECIMENS MAY NOT CONTAIN CONVENIENCE STORE MANAGER LEVELS OF HCG. IF IS STILL SUSPECTED, A SERUM HCG TEST IS RECOMMENDED. URINE SPECIMEN FROM [facility]RETHRA / Unknown 01/11/2025 2:20 PM CDT Alcon Harrell Doug DO URINE ORDERABLES Final Result [address] [place] [address], [place] * (ABNORMAL) URINALYSIS AUTO DIP (01/11/2025 2:20 PM CDT) COLOR (U) YELLOW YELLOW 01/11/2025 2:33 PM CDT [facility] TRANSPARENCY CLEAR CLEAR 01/11/2025 2:33 PM CDT [facility] SPECIFIC GRAVITY (U) 1.010 1.010 - 1.025 01/11/2025 2:33 PM CDT [facility] U PH 8.0 5.0 - 8.5 01/11/2025 2:33 PM CDT [facility] LEUKOCYTES (U) NEGATIVE NEGATIVE 01/11/2025 2:33 PM CDT [facility] NITRITES NEGATIVE NEGATIVE 01/11/2025 2:33 PM CDT [facility] PROTEIN RANDOM (U) NEGATIVE NEGATIVE 01/11/2025 2:33 PM CDT [facility] GLUCOSE (U) NEGATIVE NEGATIVE 01/11/2025 2:33 PM CDT [facility] KETONES MG/DL (U) NEGATIVE NEGATIVE 01/11/2025 2:33 PM CDT [facility] UROBILINOGEN 0.2 0.2 - 1.0 EU/DL 01/11/2025 2:33 PM CDT [facility] BILIRUBIN (U) NEGATIVE NEGATIVE 01/11/2025 2:33 PM CDT [facility] BLOOD (U) TRACE(A) NEGATIVE 01/11/2025 2:33 PM CDT [facility] URINE SPECIMEN OBTAINED BY CLEAN CATCH PROCEDURE / Unknown 01/11/2025 2:20 PM CDT us Alcon Camacho DO URINE ORDERABLES Final Result Performing Organization Address [facility] de Phone Number [facility] [address] [facility] [place] [address], [place] * LACTIC ACID W REFLEX (SEPSIS) (01/11/2025 12:15 PM CDT) LACTIC ACID VENOUS 0.7 0.5 - 2.0 MMOL/L 01/11/2025 12:51 PM CDT [facility] 01/11/2025 12:1 5 PM CDT us Alcon Camacho DO LABORATORY Final Result Performing Organization Address [facility] de Phone Number [facility] [address] [facility] [place] [address], [place] * LIPASE (01/11/2025 12:15 PM CDT) LIPASE 35 16 - 77 UNITS/L 01/11/2025 12:53 PM CDT [facility] 01/11/2025 12:1 5 PM CDT us Alcon Camacho DO LABORATORY Final Result Performing Organization Address [facility] de Phone Number [facility] [address] [facility] [place] [address], [place] * COMPREHENSIVE METABOLIC PANEL (01/11/2025 12:15 PM CDT) GLUCOSE 91 70 - 99 MG/DL 01/11/2025 12:53 PM CDT [facility] BUN 17 7 - 18 MG/DL 01/11/2025 12:53 PM CDT [facility] CREATININE S/P/B 0.77 0.50 - 1.20 MG/DL 01/11/2025 12:53 PM CDT [facility] SODIUM S/P/B 139 136 - 145 MMOL/L 01/11/2025 12:53 PM CDT [facility] POTASSIUM S/P/B 4.0 3.5 - 5.1 MMOL/L 01/11/2025 12:53 PM CDT [facility] CHLORIDE S/P/B 104 100 - 108 MMOL/L 01/11/2025 12:53 PM CDT [facility] CO2 26.4 21.0 - 32.0 MMOL/L 01/11/2025 12:53 PM CDT [facility] CALCIUM S/P/B 9.3 8.5 - 10.1 MG/DL 01/11/2025 12:53 PM CDT [facility] BILIRUBIN TOTAL S/P/B 0.6 0.2 - 1.2 MG/DL 01/11/2025 12:53 PM CDT [facility] Comment: THIS ASSAY IS NOT RECOMMENDED FOR PATIENTS UNDERGOING TREATMENT WITH ELTROMBOPAG DUE TO THE POTENTIAL FOR FALSELY ELEVATED RESULTS. TOTAL PROTEIN S/P/B 7.3 6.4 - 8.2 G/DL 01/11/2025 12:53 PM CDT [facility] ALBUMIN S/P/B 3.6 3.4 - 5.0 G/DL 01/11/2025 12:53 PM CDT [facility] AST 20 15 - 37 U/L 01/11/2025 12:53 PM CDT [facility] ALT 38 14 - 55 U/L 01/11/2025 12:53 PM CDT [facility] ALKALINE PHOSPHATASE S/P/B 118 50 - 136 U/L 01/11/2025 12:53 PM CDT [facility] ANION GAP 8.6 5.0 - 15.0 MMOL/L 01/11/2025 12:53 PM CDT [facility] BUN CREATININE RATIO 22.1 6 - 26 01/11/2025 12:53 PM CDT [facility] A/G RATIO 1.0 1.0 - 2.5 RATIO 01/11/2025 12:53 PM CDT [facility] GFR ESTIMATE >90 >90 ML/MIN/1.7 3 M2 01/11/2025 12:53 PM CDT [facility] Comment: NOTE: eGFR is not calculated for patients <18 years of age. This is an estimated GFR calculation using the new CKD EPI creatinine equation without race and so does not require a correction factor for race. This estimated GFR should not be used for calculating drug doses. 01/11/2025 12:1 5 PM CDT us Alcon Camacho DO LABORATORY Final Result [address] [place] [address], [place] * (ABNORMAL) CBC W/DIFF AUTOMATED (01/11/2025 12:15 PM CDT) WBC 7.80 4.50 - 11.00 x10'3/uL 01/11/2025 12:32 PM CDT [facility] RBC 4.52 4.00 - 5.20 x10'6/uL 01/11/2025 12:32 PM CDT [facility] HGB 13.4 12.0 - 16.0 G/DL 01/11/2025 12:32 PM CDT [facility] HCT 39.4 38.0 - 48.0 % 01/11/2025 12:32 PM CDT [facility] MCV 87.2 80.0 - 100.0 FL 01/11/2025 12:32 PM CDT [facility] MCH 29.6 26.0 - 34.0 PG 01/11/2025 12:32 PM CDT [facility] MCHC 34.0 31.0 - 37.0 G/DL 01/11/2025 12:32 PM CDT [facility] RDW 12.3 11.6 - 14.8 % 01/11/2025 12:32 PM CDT [facility] PLT 205 130 - 400 x10'3/uL 01/11/2025 12:32 PM CDT [facility] MPV 9.8 7.0 - 12.0 FL 01/11/2025 12:32 PM CDT [facility] CBC COMMENT AUTOMATED RBC MORPHOLOGY AND PLATELET EVALUATION NORMAL 01/11/2025 12:32 PM CDT [facility] NEUTROPHILS % 78.3(H) 40.0 - 74.0 % 01/11/2025 12:32 PM CDT [facility] LYMPHOCYTES % 13.7(L) 14.0 - 46.0 % 01/11/2025 12:32 PM CDT [facility] MONOCYTES % 7.2 4.0 - 13.0 % 01/11/2025 12:32 PM CDT [facility] EOSINOPHILS 0.3 0.0 - 7.0 % 01/11/2025 12:32 PM CDT [facility] BASOPHILS 0.1 0.0 - 3.0 % 01/11/2025 12:32 PM CDT [facility] IMMATURE GRANS % 0.4 0.0 - 0.43 % 01/11/2025 12:32 PM CDT [facility] NRBC % 0.0 % 01/11/2025 12:32 PM CDT [facility] ABS. NEUTROPHILS TOTAL 6.11 1.69 - 7.81 x10'3/uL 01/11/2025 12:32 PM CDT [facility] ABS. LYMPHOCYTES 1.07 0.21 - 5.42 x10'3/uL 01/11/2025 12:32 PM CDT [facility] ABS. MONOCYTES 0.56 0.04 - 1.37 x10'3/uL 01/11/2025 12:32 PM CDT [facility] ABS. EOSINOPHILS 0.02 0.00 - 0.68 x10'3/uL 01/11/2025 12:32 PM CDT [facility] ABS. BASOPHILS 0.01 0.00 - 0.08 x10'3/uL 01/11/2025 12:32 PM CDT [facility] ABS. IMMATURE GRANULOCYTES 0.03 0.00 - 0.06 x10'3/uL 01/11/2025 12:32 PM CDT [facility] ABS. NUCLEATED RBC'S 0.00 0.00 - 0.01 x10'3/uL 01/11/2025 12:32 PM CDT [facility] 01/11/2025 12:1 5 PM CDT us Alcon Camacho DO LABORATORY Final Result [facility] [address] [facility] [place] [address], documented in this encounter Visit Diagnoses Diagnosis [...] RN) documented in this encounter Care Teams Exhibit Builder Relationship Specialty Start Date End Date Keisha Carvajal DNP [address] [place] [address] PCP - General NURSE PRACTITIONER 07/06/23 José Chauhan MD Consulting Physician INTERVENTIONAL CARDIOLOGY 03/17/20 documented as of this encounter
--- OUTSIDE RECORDS SUMMARY | 2025-01-12 19:33 | XMS_ITS | Encounter Summary ---
Author Organization [facility] Address [facility] [place] [address] Care Team Providers Care Ring Facer Name Role Phone None, Provider Primary Care Provider Alecia Lubin CNM Primary Care Provider [phone] Heidy Mcdaniel NP Primary Care Provider [phone] José Chauhan MD Unavailable [phone] None, Provider Primary Care Provider Keisha Horn DNP Primary Care Provider [phone] Encounter Details Date Type Department Care Team (Late st Contact Info) Description 11/28/2005 Abstract [facility] Conversion , Generic Conversion, Social [...] on filedocumented in this encounter Care Teams Ring Facer Relationship Specialty Start Date End Date None, Provider, PCP - General 06/18/19 06/18/19 Alecia Hamilton CNM PCP - General ADVANCED PRACTICE ELECTRIC CRANE OPERATOR 06/19/1902/17 Heidy Mcdaniel, MASTER NAVAL PARACHUTIST [address] [place] [phone] PCP - General NURSE PRACTITIONER 03/17/20 08/10/22 None, Provider, PCP - General UNKNOWN PHYSICIAN SPECIALTY 08/11/22 07/05/23 Keisha Carvajal DNP [address] [place] [address] PCP - General NURSE PRACTITIONER 07/06/23 José Chauhan MD [address] [place] [phone] Consulting Physician INTERVENTIONAL CARDIOLOGY 03/17/20 documented as of this encounter
--- OUTSIDE RECORDS SUMMARY | 2025-01-12 19:33 | XMS_ITS | Encounter Summary ---
Author Organization [facility] Address [facility] [place] [address] Care Team Providers Care Hand Screen Printer Name Role Phone None, Provider Primary Care Provider Alecia Lubin CNM Primary Care Provider [phone] Heidy Mcdaniel NP Primary Care Provider [phone] José Chauhan MD Unavailable [phone] None, Provider Primary Care Provider Keisha Horn DNP Primary Care Provider [phone] Encounter Details Date Type Department Care Team (Late st Contact Info) Description 08/15/2006 Abstract [facility] at [...] on filedocumented in this encounter Care Teams Hand Screen Printer Relationship Specialty Start Date End Date None, Provider, PCP - General 06/18/19 06/18/19 Alecia Hamilton CNM PCP - General ADVANCED PRACTICE METALLURGICAL ENGINEER 06/19/1902/17 Heidy Mcdaniel, NURSE WOUND CARE [address] [place] [phone] PCP - General NURSE PRACTITIONER 03/17/20 08/10/22 None, Provider, PCP - General UNKNOWN PHYSICIAN SPECIALTY 08/11/22 07/05/23 Keisha Carvajal DNP [address] [place] [address] PCP - General NURSE PRACTITIONER 07/06/23 José Chauhan MD [address] [place] [phone] Consulting Physician INTERVENTIONAL CARDIOLOGY 03/17/20 documented as of this encounter
--- OUTSIDE RECORDS SUMMARY | 2025-01-12 19:33 | XMS_ITS | Encounter Summary ---
Author Organization [facility] Address [facility] [place] [address] Care Team Providers Care Manager Of Internal Audit Name Role Phone None, Provider Primary Care Provider Alecia Lubin CNM Primary Care Provider [phone] Heidy Mcdaniel NP Primary Care Provider [phone] José Chauhan MD Unavailable [phone] None, Provider Primary Care Provider Keisha Horn DNP Primary Care Provider [phone] Encounter Details Date Type Department Care Team (Late st Contact Info) Description 07/24/[address] [facility] Conversion , Generic Conversion, Social [...] in this encounter Care Teams Manager Of Internal Audit Relationship Specialty Start Date End Date None, Provider, PCP - General 06/18/19 06/18/19 Alecia Hamilton CNM PCP - General ADVANCED PRACTICE NEWS ANALYST 06/19/1902/17 Heidy Mcdaniel, SENIOR SOFTWARE DEVELOPMENT ENGINEER [address] [place] [phone] PCP - General NURSE PRACTITIONER 03/17/20 08/10/22 None, Provider, PCP - General UNKNOWN PHYSICIAN SPECIALTY 08/11/22 07/05/23 Keisha Carvajal DNP [address] [place] [address] PCP - General NURSE PRACTITIONER 07/06/23 José Chauhan MD [address] [place] [phone] Consulting Physician INTERVENTIONAL CARDIOLOGY 03/17/20 documented as of this encounter
--- OUTSIDE RECORDS SUMMARY | 2025-01-12 19:33 | XMS_ITS | Encounter Summary ---
Author Organization [facility] Address [facility] [place] [address] Care Team Providers Care Optical Instrument Assembly Supervisor Name Role Phone None, Provider Primary Care Provider Aleica Lubin CNM Primary Care Provider [phone] Heidy Mcdaniel NP Primary Care Provider [phone] José Chauhan MD Unavailable [phone] None, Provider Primary Care Provider Keisha Horn DNP Primary Care Provider [phone] Encounter Details Date Type Department Care Team (Late st Contact Info) Description 03/26/2008 Abstract [facility] Conversion , Generic Conversion, Social History [...] on filedocumented in this encounter Care Teams Optical Instrument Assembly Supervisor Relationship Specialty Start Date End Date None, Provider, PCP - General 06/18/19 06/18/19 Alecia Hamilton CNM PCP - General ADVANCED PRACTICE PRACTICAL NURSING INSTRUCTOR 06/19/1902/17 Heidy Mcdaniel, WASH DRILLER [address] [place] [address] [phone] PCP - General NURSE PRACTITIONER 03/17/20 08/10/22 None, Provider, PCP - General UNKNOWN PHYSICIAN SPECIALTY 08/11/22 07/05/23 Keisha Carvajal DNP [address] [place] [address] PCP - General NURSE PRACTITIONER 07/06/23 José Chauhan MD [address] [place] [phone] Consulting Physician INTERVENTIONAL CARDIOLOGY 03/17/20 documented as of this encounter
--- OUTSIDE RECORDS SUMMARY | 2025-01-12 19:33 | XMS_ITS | Encounter Summary ---
Author Organization [facility] Address [address] [place] [address] Care Team Providers Care Field Radio Operator Name Role Phone José Chauhan MD Unavailable [phone] Keisha Carvajal DNP Primary Care Provider [phone] Encounter Details Date Type Department Care Team [...] ERENDIRAT Rufus Cruz, Nurse Student Active * [place] Suicide Severity Rating Scale (Screener/Recent Self-Report) Question [...] on filedocumented in this encounter Care Teams Field Radio Operator Relationship Specialty Start Date End Date Keisha Carvajal DNP [address] [place] [address] PCP - General NURSE PRACTITIONER 07/06/23 José Chauhan MD Consulting Physician INTERVENTIONAL CARDIOLOGY 03/17/20 documented as of this encounter
--- OUTSIDE RECORDS SUMMARY | 2025-01-12 19:33 | XMS_ITS | Encounter Summary ---
Author Organization [facility] Address [facility] [place] [address] Care Team Providers Care Account Coordinator Name Role Phone None, Provider Primary Care Provider Alecia Lubin CNM Primary Care Provider [phone] Heidy Mcdaniel NP Primary Care Provider [phone] José Chauhan MD Unavailable [phone] None, Provider Primary Care Provider Keisha Horn DNP Primary Care Provider [phone] Encounter Details Date Type Department Care Team (Late st Contact Info) Description 09/22/[address] [facility] [...] on filedocumented in this encounter Care Teams Account Coordinator Relationship Specialty Start Date End Date None, Provider, PCP - General 06/18/19 06/18/19 Alecia Hamilton CNM PCP - General ADVANCED PRACTICE PROOF MACHINE OPERATOR SUPERVISOR 06/19/1902/17 Heidy Mcdaniel, SPECIFICATION CONSULTANT [address] [place] [phone] PCP - General NURSE PRACTITIONER 03/17/20 08/10/22 None, Provider, PCP - General UNKNOWN PHYSICIAN SPECIALTY 08/11/22 07/05/23 Keisha Carvajal DNP [address] [place] [address] PCP - General NURSE PRACTITIONER 07/06/23 José Chauhan MD [address] [place] [phone] Consulting Physician INTERVENTIONAL CARDIOLOGY 03/17/20 documented as of this encounter
--- OUTSIDE RECORDS SUMMARY | 2025-01-12 19:33 | XMS_ITS | Encounter Summary ---
Author Organization [facility] Address [facility] [place] [address] Care Team Providers Care Lawn Mower Sharpener Name Role Phone None, Provider Primary Care Provider Alecia Lubin CNM Primary Care Provider [phone] Heidy Mcdaniel NP Primary Care Provider [phone] José Chauhan MD Unavailable [phone] None, Provider Primary Care Provider Keisha Horn DNP Primary Care Provider [phone] Encounter Details Date Type Department Care Team (Late st Contact Info) Description 03/04/2008 Abstract [facility] Conversion , Generic Conversion, Social [...] on filedocumented in this encounter Care Teams Lawn Mower Sharpener Relationship Specialty Start Date End Date None, Provider, PCP - General 06/18/19 06/18/19 Alecia Hamilton CNM PCP - General ADVANCED PRACTICE MAIL TECHNICIAN 06/19/1902/17 Heidy Mcdaniel, ENAMEL FINISHER [address] [place] [address] [phone] PCP - General NURSE PRACTITIONER 03/17/20 08/10/22 None, Provider, PCP - General UNKNOWN PHYSICIAN SPECIALTY 08/11/22 07/05/23 Keisha Carvajal DNP [address] [place] [address] PCP - General NURSE PRACTITIONER 07/06/23 José Chauhan MD [address] [place] [phone] Consulting Physician INTERVENTIONAL CARDIOLOGY 03/17/20 documented as of this encounter
--- OUTSIDE RECORDS SUMMARY | 2025-01-12 19:33 | XMS_ITS | Encounter Summary ---
Author Organization [facility] Address [address] [place] [address] Care Team Providers Care Customer Service Administrator Name Role Phone None, Provider Primary Care Provider Alecia Lubin CNM Primary Care Provider [phone] Heidy Mcdaniel NP Primary Care Provider [phone] José Chauhan MD Unavailable [phone] None, Provider Primary Care Provider Keisha Horn DNP Primary Care Provider [phone] Encounter Details Date Type Department Care Team (Late st Contact Info) Description 02/23/[address] [facility] Conversion [address] [place], [place] [address] , Generic Conversion, Social History Tobacco Use [...] on filedocumented in this encounter Care Teams Customer Service Administrator Relationship Specialty Start Date End Date None, ProviderMD PCP - General 06/18/19 06/18/19 Alecia Hamilton CNM PCP - General ADVANCED PRACTICE WINDSCREEN FITTER 06/19/1902/17 Heidy Mcdaniel NP [address] [place] [phone] PCP - General NURSE PRACTITIONER 03/17/20 08/10/22 None, Provider, PCP - General UNKNOWN PHYSICIAN SPECIALTY 08/11/22 07/05/23 Keisha Carvajal DNP [address] [place] [address] PCP - General NURSE PRACTITIONER 07/06/23 José Chauhan MD [address] [place] [phone] Consulting Physician INTERVENTIONAL CARDIOLOGY 03/17/20 documented as of this encounter
--- OUTSIDE RECORDS SUMMARY | 2025-01-12 19:33 | XMS_ITS | Clinical Summary ---
Author Organization [facility] Address [address] [place] [address] Care Team Providers Care Public Health Worker Name Role Phone José Chauhan MD Unavailable Keisha Carvajal DNP Primary Care Provider [phone] Allergies No known active allergies Medications multi [...] CDT - 01/11/2025 6:04 PM CDT Emergency [facility] Emergency Services [address] [place] [address] Wolfgang Camacho, DO Abdominal Pain Discharge Disposition: [...] this topic Meningococcal Vaccine Aged Out No jmael judy eligible based on patient's age to [...] 2:45 PM Narrative 01/11/2025 2:54 PM CDT [address] [place] [address] EXAMINATION: CT Abdomen and Pelvis without contrast [...] Procedure Note Seferino Bernard MD - 01/11/[address] [place] [address] EXAMINATION: CT Abdomen and Pelvis without contrast [...] TEST NEGATIVE NEGATIVE 01/11/2025 2:31 PM CDT [facility] Comment: VERY DILUTE URINE SPECIMENS MAY NOT CONTAIN EXCHANGE ARCHITECT LEVELS OF HCG. IF IS STILL SUSPECTED, A SERUM HCG TEST IS RECOMMENDED. URINE SPECIMEN FROM [facility] / Unknown 01/11/2025 2:20 PM CDT us Wolfgang Camacho DO URINE ORDERABLES Final Result [address] [place] [address], [place] * (ABNORMAL) URINALYSIS AUTO DIP (01/11/2025 2:20 PM CDT) COLOR (U) YELLOW YELLOW 01/11/2025 2:33 PM CDT [facility] TRANSPARENCY CLEAR CLEAR 01/11/2025 2:33 PM CDT [facility] SPECIFIC GRAVITY (U) 1.010 1.010 - 1.025 01/11/2025 2:33 PM CDT [facility] U PH 8.0 5.0 - 8.5 01/11/2025 2:33 PM CDT [facility] LEUKOCYTES (U) NEGATIVE NEGATIVE 01/11/2025 2:33 PM CDT [facility] NITRITES NEGATIVE NEGATIVE 01/11/2025 2:33 PM CDT [facility] PROTEIN RANDOM (U) NEGATIVE NEGATIVE 01/11/2025 2:33 PM CDT [facility] GLUCOSE (U) NEGATIVE NEGATIVE 01/11/2025 2:33 PM CDT [facility] KETONES MG/DL (U) NEGATIVE NEGATIVE 01/11/2025 2:33 PM CDT [facility] UROBILINOGEN 0.2 0.2 - 1.0 EU/DL 01/11/2025 2:33 PM CDT [facility] BILIRUBIN (U) NEGATIVE NEGATIVE 01/11/2025 2:33 PM CDT [facility] BLOOD (U) TRACE(A) NEGATIVE 01/11/2025 2:33 PM CDT [facility] URINE SPECIMEN OBTAINED BY CLEAN CATCH PROCEDURE / Unknown 01/11/2025 2:20 PM CDT us Wolfgang Camacho DO URINE ORDERABLES Final Result Performing Organization Address [facility] Co de Phone Number [facility] [address] [place] [address], * LACTIC ACID W REFLEX (SEPSIS) (01/11/2025 12:15 PM CDT) LACTIC ACID VENOUS 0.7 0.5 - 2.0 MMOL/L 01/11/2025 12:51 PM CDT [facility] 01/11/2025 12:1 5 PM CDT us Wolfgang Camacho DO LABORATORY Final Result Performing Organization Address [facility]/ZIP Co de Phone Number [facility] [address] [place] [place] [address], * COMPREHENSIVE METABOLIC PANEL (01/11/2025 12:15 PM CDT) GLUCOSE 91 70 - 99 MG/DL 01/11/2025 12:53 PM CDT [facility] BUN 17 7 - 18 MG/DL 01/11/2025 12:53 PM CDT [facility] CREATININE S/P/B 0.77 0.50 - 1.20 MG/DL 01/11/2025 12:53 PM CDT [facility] SODIUM S/P/B 139 136 - 145 MMOL/L 01/11/2025 12:53 PM CDT [facility] POTASSIUM S/P/B 4.0 3.5 - 5.1 MMOL/L 01/11/2025 12:53 PM CDT [facility] CHLORIDE S/P/B 104 100 - 108 MMOL/L 01/11/2025 12:53 PM CDT [facility] CO2 26.4 21.0 - 32.0 MMOL/L 01/11/2025 12:53 PM CDT [facility] CALCIUM S/P/B 9.3 8.5 - 10.1 MG/DL 01/11/2025 12:53 PM CDT [facility] BILIRUBIN TOTAL S/P/B 0.6 0.2 - 1.2 MG/DL 01/11/2025 12:53 PM CDT [facility] Comment: THIS ASSAY IS NOT RECOMMENDED FOR PATIENTS UNDERGOING TREATMENT WITH ELTROMBOPAG DUE TO THE POTENTIAL FOR FALSELY ELEVATED RESULTS. TOTAL PROTEIN S/P/B 7.3 6.4 - 8.2 G/DL 01/11/2025 12:53 PM CDT [facility] ALBUMIN S/P/B 3.6 3.4 - 5.0 G/DL 01/11/2025 12:53 PM CDT [facility] AST 20 15 - 37 U/L 01/11/2025 12:53 PM CDT [facility] ALT 38 14 - 55 U/L 01/11/2025 12:53 PM CDT [facility] ALKALINE PHOSPHATASE S/P/B 118 50 - 136 U/L 01/11/2025 12:53 PM CDT [facility] ANION GAP 8.6 5.0 - 15.0 MMOL/L 01/11/2025 12:53 PM CDT [facility] BUN CREATININE RATIO 22.1 6 - 26 01/11/2025 12:53 PM CDT [facility] A/G RATIO 1.0 1.0 - 2.5 RATIO 01/11/2025 12:53 PM CDT [facility] GFR ESTIMATE >90 >90 ML/MIN/1.7 3 M2 01/11/2025 12:53 PM CDT [facility] Comment: NOTE: eGFR is not calculated for patients <18 years of age. This is an estimated GFR calculation using the new CKD EPI creatinine equation without race and so does not require a correction factor for race. This estimated GFR should not be used for calculating drug doses. 01/11/2025 12:1 5 PM CDT us Wolfgang Camacho DO LABORATORY Final Result [facility] [address] [place] [address], * (ABNORMAL) CBC W/DIFF AUTOMATED (01/11/2025 12:15 PM CDT) WBC 7.80 4.50 - 11.00 x10'3/uL 01/11/2025 12:32 PM CDT [facility] RBC 4.52 4.00 - 5.20 x10'6/uL 01/11/2025 12:32 PM CDT [facility] HGB 13.4 12.0 - 16.0 G/DL 01/11/2025 12:32 PM CDT [facility] HCT 39.4 38.0 - 48.0 % 01/11/2025 12:32 PM CDT [facility] MCV 87.2 80.0 - 100.0 FL 01/11/2025 12:32 PM CDT [facility] MCH 29.6 26.0 - 34.0 PG 01/11/2025 12:32 PM CDT [facility] MCHC 34.0 31.0 - 37.0 G/DL 01/11/2025 12:32 PM CDT [facility] RDW 12.3 11.6 - 14.8 % 01/11/2025 12:32 PM CDT [facility] PLT 205 130 - 400 x10'3/uL 01/11/2025 12:32 PM CDT [facility] MPV 9.8 7.0 - 12.0 FL 01/11/2025 12:32 PM CDT [facility] CBC COMMENT AUTOMATED RBC MORPHOLOGY AND PLATELET EVALUATION NORMAL 01/11/2025 12:32 PM CDT [facility] NEUTROPHILS % 78.3(H) 40.0 - 74.0 % 01/11/2025 12:32 PM CDT [facility] LYMPHOCYTES % 13.7(L) 14.0 - 46.0 % 01/11/2025 12:32 PM CDT [facility] MONOCYTES % 7.2 4.0 - 13.0 % 01/11/2025 12:32 PM CDT [facility] EOSINOPHILS 0.3 0.0 - 7.0 % 01/11/2025 12:32 PM CDT [facility] BASOPHILS 0.1 0.0 - 3.0 % 01/11/2025 12:32 PM CDT [facility] IMMATURE GRANS % 0.4 0.0 - 0.43 % 01/11/2025 12:32 PM CDT [facility] NRBC % 0.0 % 01/11/2025 12:32 PM CDT [facility] ABS. NEUTROPHILS TOTAL 6.11 1.69 - 7.81 x10'3/uL 01/11/2025 12:32 PM CDT [facility] ABS. LYMPHOCYTES 1.07 0.21 - 5.42 x10'3/uL 01/11/2025 12:32 PM CDT [facility] ABS. MONOCYTES 0.56 0.04 - 1.37 x10'3/uL 01/11/2025 12:32 PM CDT [facility] ABS. EOSINOPHILS 0.02 0.00 - 0.68 x10'3/uL 01/11/2025 12:32 PM CDT [facility] ABS. BASOPHILS 0.01 0.00 - 0.08 x10'3/uL 01/11/2025 12:32 PM CDT [facility] ABS. IMMATURE GRANULOCYTES 0.03 0.00 - 0.06 x10'3/uL 01/11/2025 12:32 PM CDT [facility] ABS. NUCLEATED RBC'S 0.00 0.00 - 0.01 x10'3/uL 01/11/2025 12:32 PM CDT [facility] 01/11/2025 12:1 5 PM CDT Wolfgang Camacho DO LABORATORY Final Result [facility] [address] [place] [address], * LIPASE (01/11/2025 12:15 PM CDT) LIPASE 35 16 - 77 UNITS/L 01/11/2025 12:53 PM CDT [facility] 01/11/2025 12:1 5 PM CDT Wolfgang Camacho DO LABORATORY Final Result [facility] [address] [place] [address], from Last [address] [place] [address] [facility] Advance Directives Documents on File Type Date Recorded Patient Venue Attendant Expl anation Advance Directives and Living Will 11/17/2016 12:00 AM ADVANCED DIRECTIVES * Full Code (Latest Code Status on File) Date Activated Date Inactivated Comments 06/19/2019 1:41 AM 06/20/2019 2:01 PM Care Teams Public Health Worker Relationship Specialty Start Date End Date Keisha Carvajal DNP [address] [place] [address] PCP - General NURSE PRACTITIONER 07/06/23 José Chauhan MD Consulting Physician INTERVENTIONAL CARDIOLOGY 03/17/20
--- OUTSIDE RECORDS SUMMARY | 2025-01-12 19:33 | XMS_ITS | Encounter Summary ---
Author Organization [facility] Address [address] [place] [address] Care Team Providers Care Department Head Name Role Phone None, Provider Primary Care Provider Alecia Lubin CNM Primary Care Provider [phone] Heidy Mcdaniel NP Primary Care Provider [phone] José Chauhan MD Unavailable [phone] None, Provider Primary Care Provider Keisha Horn DNP Primary Care Provider [phone] Encounter Details Date Type Department Care Team (Late st Contact Info) Description 10/22/[address] [facility] Conversion [address] [place], [place] [address] , Generic Conversion, Social History Tobacco Use [...] on filedocumented in this encounter Care Teams Department Head Relationship Specialty Start Date End Date None, ProviderMD PCP - General 06/18/19 06/18/19 Alecia Hamilton CNM PCP - General ADVANCED PRACTICE ARMATURE CONNECTOR 06/19/1902/17 Heidy Mcdaniel NP [address] [place] [phone] PCP - General NURSE PRACTITIONER 03/17/20 08/10/22 None, Provider, PCP - General UNKNOWN PHYSICIAN SPECIALTY 08/11/22 07/05/23 Keisha Carvajal DNP [address] [place] [address] PCP - General NURSE PRACTITIONER 07/06/23 José Chauhan MD [address] [place] [phone] Consulting Physician INTERVENTIONAL CARDIOLOGY 03/17/20 documented as of this encounter
--- OUTSIDE RECORDS SUMMARY | 2025-01-12 19:33 | XMS_ITS | Encounter Summary ---
Author Organization [facility] Address [facility] [place] [address] Care Team Providers Care Outside Collector Name Role Phone None, Provider Primary Care Provider Alecia Lubin CNM Primary Care Provider [phone] Heidy Mcdaniel NP Primary Care Provider [phone] José Chauhan MD Unavailable [phone] None, Provider Primary Care Provider Keisha Horn DNP Primary Care Provider [phone] Encounter Details Date Type Department Care Team (Late st Contact Info) Description 09/13/2007 Abstract [facility] Conversion , [...] on filedocumented in this encounter Care Teams Outside Collector Relationship Specialty Start Date End Date None, Provider, PCP - General 06/18/19 06/18/19 Alecia Hamilton CNM PCP - General ADVANCED PRACTICE MASTER OCEAN 06/19/1902/17 Heidy Mcdaniel, RATE CLERK PASSENGER [address] [place] [phone] PCP - General NURSE PRACTITIONER 03/17/20 08/10/22 None, Provider, PCP - General UNKNOWN PHYSICIAN SPECIALTY 08/11/22 07/05/23 Keisha Carvajal DNP [address] [place] [address] PCP - General NURSE PRACTITIONER 07/06/23 José Chauhan MD [address] [place] [phone] Consulting Physician INTERVENTIONAL CARDIOLOGY 03/17/20 documented as of this encounter
--- OUTSIDE RECORDS SUMMARY | 2025-01-12 19:33 | XMS_ITS | Encounter Summary ---
Author Organization [facility] Address [facility] [place] [address] Care Team Providers Care Hand Packer/Packager Name Role Phone None, Provider Primary Care Provider Alecia Lubin CNM Primary Care Provider [phone] Heidy Mcdaniel NP Primary Care Provider [phone] José Chauhan MD Unavailable [phone] None, Provider Primary Care Provider Keisha Horn DNP Primary Care Provider Encounter Details Date Type Department Care Team (Late st Contact Info) Description 06/25/2007 Abstract [facility] Conversion , Generic Conversion, Social History [...] filedocumented in this encounter Care Teams Hand Packer/Packager Relationship Specialty Start Date End Date None, Provider, PCP - General 06/18/19 06/18/19 Alecia Hamilton CNM PCP - General ADVANCED PRACTICE STOREROOM KEEPER 06/19/1902/17 Heidy Mcdaniel, HVAC ENGINEERING TECHNICIAN [address] [place] [phone] PCP - General NURSE PRACTITIONER 03/17/20 08/10/22 None, Provider, PCP - General UNKNOWN PHYSICIAN SPECIALTY 08/11/22 07/05/23 Keisha Carvajal DNP [address] [place] [address] PCP - General NURSE PRACTITIONER 07/06/23 José Chauhan MD [address] [place] [phone] Consulting Physician INTERVENTIONAL CARDIOLOGY 03/17/20 documented as of this encounter
--- OUTSIDE RECORDS SUMMARY | 2025-01-12 19:33 | XMS_ITS | Encounter Summary ---
Author Organization [facility] Address [facility] [place] [address] Care Team Providers Care Copyman Name Role Phone None, Provider Primary Care Provider Alecia Lubin CNM Primary Care Provider [phone] Heidy Mcdaniel NP Primary Care Provider [phone] José Chauhan MD Unavailable [phone] None, Provider Primary Care Provider Keisha Horn DNP Primary Care Provider [phone] Encounter Details Date Type Department Care Team (Late st Contact Info) Description 04/14/2008 Abstract [facility] Conversion , Generic Conversion, Social History Tobacco [...] on filedocumented in this encounter Care Teams Copyman Relationship Specialty Start Date End Date None, Provider, PCP - General 06/18/19 06/18/19 Alecia Hamilton CNM PCP - General ADVANCED PRACTICE FLEET MECHANIC 06/19/1902/17 Heidy Mcdaniel, LIAISON ENGINEER [address] [place] [phone] PCP - General NURSE PRACTITIONER 03/17/20 08/10/22 None, Provider, PCP - General UNKNOWN PHYSICIAN SPECIALTY 08/11/22 07/05/23 Keisha Carvajal DNP [address] [place] [address] PCP - General NURSE PRACTITIONER 07/06/23 José Chauhan MD [address] [place] [phone] Consulting Physician INTERVENTIONAL CARDIOLOGY 03/17/20 documented as of this encounter
--- OUTSIDE RECORDS SUMMARY | 2025-01-12 19:33 | XMS_ITS | Encounter Summary ---
Author Organization [facility] Address [facility] [place] [address] Care Team Providers Care Nurse Transition Name Role Phone None, Provider Primary Care Provider Alecia Lubin CNM Primary Care Provider [phone] Heidy Mcdaniel NP Primary Care Provider [phone] José Chauhan MD Unavailable [phone] None, Provider Primary Care Provider Keisha Horn DNP Primary Care Provider [phone] Encounter Details Date Type Department Care Team (Late st Contact Info) Description 11/11/2005 Abstract [facility] at [...] on filedocumented in this encounter Care Teams Nurse Transition Relationship Specialty Start Date End Date None, Provider, PCP - General 06/18/19 06/18/19 Alecia Hamilton CNM PCP - General ADVANCED PRACTICE PRECISION AIRCRAFT STRUCTURE ASSEMBLER 06/19/1902/17 Heidy Mcdaniel, CASHIER GREETER [address] [place] [phone] PCP - General NURSE PRACTITIONER 03/17/20 08/10/22 None, Provider, PCP - General UNKNOWN PHYSICIAN SPECIALTY 08/11/22 07/05/23 Keisha Carvajal DNP [address] [place] [address] PCP - General NURSE PRACTITIONER 07/06/23 José Chauhan MD [address] [place] [phone] Consulting Physician INTERVENTIONAL CARDIOLOGY 03/17/20 documented as of this encounter
--- OUTSIDE RECORDS SUMMARY | 2025-01-12 19:33 | XMS_ITS | Encounter Summary ---
Author Organization [facility] Address [facility] [place] [address] Care Team Providers Care Button Sewer Hand Name Role Phone None, Provider Primary Care Provider Alecia Lubin CNM Primary Care Provider [phone] Heidy Mcdaniel NP Primary Care Provider [phone] José Chauhan MD Unavailable [phone] None, Provider Primary Care Provider Keisha Horn DNP Primary Care Provider [phone] Encounter Details Date Type Department Care Team (Late st Contact Info) Description 08/29/2007 Abstract [facility] Conversion [...] on filedocumented in this encounter Care Teams Button Sewer Hand Relationship Specialty Start Date End Date None, Provider, PCP - General 06/18/19 06/18/19 Alecia Hamilton CNM PCP - General ADVANCED PRACTICE COLD STRIP ROLLER 06/19/1902/17 Heidy Mcdaniel, VAT WASHER [address] [place] [phone] PCP - General NURSE PRACTITIONER 03/17/20 08/10/22 None, Provider, PCP - General UNKNOWN PHYSICIAN SPECIALTY 08/11/22 07/05/23 Keisha Carvajal DNP [address] [place] [address] PCP - General NURSE PRACTITIONER 07/06/23 José Chauhan MD [address] [place] [phone] Consulting Physician INTERVENTIONAL CARDIOLOGY 03/17/20 documented as of this encounter
--- OUTSIDE RECORDS SUMMARY | 2025-01-12 19:34 | XMS_ITS | Encounter Summary ---
Author Organization [facility] Address [facility] [place] [address] Care Team Providers Care Business Segment Manager Name Role Phone None, Provider Primary Care Provider Alecia Lubin CNM Primary Care Provider [phone] Heidy Mcdaniel NP Primary Care Provider [phone] José Chauhan MD Unavailable [phone] None, Provider Primary Care Provider Keisha Horn DNP Primary Care Provider [phone] Encounter Details Date Type Department Care Team (Late st Contact Info) Description 01/17/[address] [facility] Conversion , Generic ConversionMD Social [...] on filedocumented in this encounter Care Teams Business Segment Manager Relationship Specialty Start Date End Date None, Provider, PCP - General 06/18/19 06/18/19 Alecia Hamilton CNM PCP - General ADVANCED PRACTICE FAMILY RESOURCE SPECIALIST 06/19/1902/17 Heidy Mcdaniel, ANALYTICAL CONSULTANT [address] [place] [phone] PCP - General NURSE PRACTITIONER 03/17/20 08/10/22 None, Provider, PCP - General UNKNOWN PHYSICIAN SPECIALTY 08/11/22 07/05/23 Keisha Carvajal DNP [address] [place] [address] PCP - General NURSE PRACTITIONER 07/06/23 Jsoé Chauhan MD [address] [place] [phone] Consulting Physician INTERVENTIONAL CARDIOLOGY 03/17/20 documented as of this encounter
--- OUTSIDE RECORDS SUMMARY | 2025-01-12 19:34 | XMS_ITS | Encounter Summary ---
Author Organization [facility] Address [facility] [place] [address] Care Team Providers Care Manager School Name Role Phone None, Provider Primary Care Provider Alecia Lubin CNM Primary Care Provider [phone] Heidy Mcdaniel NP Primary Care Provider [phone] José Chauhan MD Unavailable [phone] None, Provider Primary Care Provider Keisha Horn DNP Primary Care Provider [phone] Encounter Details Date Type Department Care Team (Late st Contact Info) Description 06/15/2005 Abstract [facility] Conversion , Generic Conversion, [...] filedocumented in this encounter Care Teams Manager School Relationship Specialty Start Date End Date None, Provider, PCP - General 06/18/19 06/18/19 Alecia Hamilton CNM PCP - General ADVANCED PRACTICE DIE MACHINE OPERATOR 06/19/1902/17 Heidy Mcdaniel, BEARINGIZER [address] [place] [phone] PCP - General NURSE PRACTITIONER 03/17/20 08/10/22 None, Provider, PCP - General UNKNOWN PHYSICIAN SPECIALTY 08/11/22 07/05/23 Keisha Carvajal DNP [address] [place] [address] PCP - General NURSE PRACTITIONER 07/06/23 José Chauhan MD [address] [place] [phone] Consulting Physician INTERVENTIONAL CARDIOLOGY 03/17/20 documented as of this encounter
--- OUTSIDE RECORDS SUMMARY | 2025-01-12 19:34 | XMS_ITS | Clinical Summary ---
Author Organization [facility] Address [address] [place] [address] Care Team Providers Care Licensed Mortgage Loan Officer Name Role Phone Unavailable Primary Care Provider Unavailabl e Source Comments [facility],non-owned Affiliates and Associated Physician Practices is amultiple site organization consisting of ambulatory clinics and hospital sitesin [place], [place], [place] and [place]. This disclosure is being madepursuant to the Care Everywhere program and may not contain all information available regarding this patient. Last updated 18.[facility] Allergies No known active allergies Medications * [...] age to complete this topic Insurance MEDICAID [facility] MEDICAID - [facility] Advance Directives * Full Code (Latest Code Status on File) Date Activated Date Inactivated Comments 04/08/2018 9:19 AM 04/11/2018 2:39 PM * Full Code Date Activated Date Inactivated Comments 04/05/2018 7:58 PM 04/08/2018 9:19 AM
--- OUTSIDE RECORDS SUMMARY | 2025-01-12 19:34 | XMS_ITS | Encounter Summary ---
Author Organization [facility] Address [facility] [place] [address] Care Team Providers Care Chief Growth Officer Name Role Phone None, Provider Primary Care Provider Alecia Lubin CNM Primary Care Provider [phone] Heidy Mcdaniel NP Primary Care Provider [phone] José Chauhan MD Unavailable [phone] None, Provider Primary Care Provider Keisha Horn DNP Primary Care Provider [phone] Encounter Details Date Type Department Care Team (Late st Contact Info) Description 07/11/2005 Abstract [facility] Conversion , Generic Conversion, Social History [...] on filedocumented in this encounter Care Teams Chief Growth Officer Relationship Specialty Start Date End Date None, Provider, PCP - General 06/18/19 06/18/19 Alecia Hamilton CNM PCP - General ADVANCED PRACTICE DRILL PRESS OPERATOR HELPER 06/19/1902/17 Heidy Mcdaniel, GLOVE FINISHER [address] [place] [phone] PCP - General NURSE PRACTITIONER 03/17/20 08/10/22 None, Provider, PCP - General UNKNOWN PHYSICIAN SPECIALTY 08/11/22 07/05/23 Keisha Carvajal DNP [address] [place] [address] PCP - General NURSE PRACTITIONER 07/06/23 José Chauhan MD [address] [place] [phone] Consulting Physician INTERVENTIONAL CARDIOLOGY 03/17/20 documented as of this encounter
--- OUTSIDE RECORDS SUMMARY | 2025-01-12 19:34 | XMS_ITS | Encounter Summary ---
Author Organization [facility] Address [facility] [place] [address] Care Team Providers Care Internet Specialist Name Role Phone None, Provider Primary Care Provider Alecia Lubin CNM Primary Care Provider [phone] Heidy Mcdaniel NP Primary Care Provider [phone] José Chauhan MD Unavailable [phone] None, Provider Primary Care Provider Keisha Horn DNP Primary Care Provider [phone] Encounter Details Date Type Department Care Team (Late st Contact Info) Description 12/01/2006 Abstract [facility] Conversion , [...] on filedocumented in this encounter Care Teams Internet Specialist Relationship Specialty Start Date End Date None, Provider, PCP - General 06/18/19 06/18/19 Alecia Hamilton CNM PCP - General ADVANCED PRACTICE FORM RAISER 06/19/1902/17 Heidy Mcdaniel, TECHNICAL COORDINATOR [address] [place] [phone] PCP - General NURSE PRACTITIONER 03/17/20 08/10/22 None, Provider, PCP - General UNKNOWN PHYSICIAN SPECIALTY 08/11/22 07/05/23 Keisha Carvajal DNP [address] [place] [address] PCP - General NURSE PRACTITIONER 07/06/23 José Chauhan MD [address] [place] [phone] Consulting Physician INTERVENTIONAL CARDIOLOGY 03/17/20 documented as of this encounter
--- OUTSIDE RECORDS SUMMARY | 2025-01-12 19:34 | XMS_ITS | Encounter Summary ---
Author Organization [facility] Address [facility] [place] [address] Care Team Providers Care Plating Technician Name Role Phone None, Provider Primary Care Provider Alecia Lubin CNM Primary Care Provider [phone] Heidy Mcdaniel NP Primary Care Provider [phone] José Chauhan MD Unavailable [phone], Provider Primary Care Provider Keisha Horn DNP Primary Care Provider Encounter Details Date Type Department Care Team (Late st Contact Info) Description 03/09/2007 Abstract [facility] Conversion , Generic Conversion, Social History Tobacco [...] on filedocumented in this encounter Care Teams Plating Technician Relationship Specialty Start Date End Date None, Provider, PCP - General 06/18/19 06/18/19 Alecia Hamilton CNM PCP - General ADVANCED PRACTICE SETTER JUICE PACKAGING MACHINES 06/19/1902/17 Heidy Mcdaniel, YIELD CLERK [address] [place] [phone] PCP - General NURSE PRACTITIONER 03/17/20 08/10/22 None, Provider, PCP - General UNKNOWN PHYSICIAN SPECIALTY 08/11/22 07/05/23 Keisha Carvajal DNP [address] [place] [address] PCP - General NURSE PRACTITIONER 07/06/23 José Chauhan MD [address] [place] [phone] Consulting Physician INTERVENTIONAL CARDIOLOGY 03/17/20 documented as of this encounter
--- OUTSIDE RECORDS SUMMARY | 2025-01-12 19:34 | XMS_ITS | Encounter Summary ---
Author Organization [facility] Address On license of [facility] [place] [address] Care Team Providers Care Correctional Corporal Name Role Phone None, Provider Primary Care Provider Alecia Lubin CNM Primary Care Provider [phone] Heidy Mcdaniel NP Primary Care Provider [phone] José Chauhan MD Unavailable [phone], Provider Primary Care Provider Keisha Horn DNP Primary Care Provider [phone] Encounter Details Date Type Department Care Team (Late st Contact Info) Description 06/11/2007 Abstract [facility] Conversion , [...] on filedocumented in this encounter Care Teams Correctional Corporal Relationship Specialty Start Date End Date None, Provider, PCP - General 06/18/19 06/18/19 Alecia Hamilton CNM PCP - General ADVANCED PRACTICE ASSISTANT SERVICE MANAGER 06/19/1902/17 Heidy Mcdaniel, TEMPER MILL OPERATOR [address] [place] [address] [phone] PCP - General NURSE PRACTITIONER 03/17/20 08/10/22 None, Provider, PCP - General UNKNOWN PHYSICIAN SPECIALTY 08/11/22 07/05/23 Keisha Carvajal DNP [address] [place] [address] PCP - General NURSE PRACTITIONER 07/06/23 José Chauhan MD [address] [place] [phone] Consulting Physician INTERVENTIONAL CARDIOLOGY 03/17/20 documented as of this encounter
--- OUTSIDE RECORDS SUMMARY | 2025-01-12 19:34 | XMS_ITS | Encounter Summary ---
Author Organization [facility] Address [facility] [place] [address] Care Team Providers Care Project Controls Specialist Name Role Phone None, Provider Primary Care Provider Alecia Lubin CNM Primary Care Provider [phone] Heidy Mcdaniel NP Primary Care Provider [phone] José Chauhan MD Unavailable [phone] None, Provider Primary Care Provider Keisha Horn DNP Primary Care Provider [phone] Encounter Details Date Type Department Care Team (Late st Contact Info) Description 10/07/2004 Abstract [facility] Conversion , Generic Conversion, Social History [...] on filedocumented in this encounter Care Teams Project Controls Specialist Relationship Specialty Start Date End Date None, Provider, PCP - General 06/18/19 06/18/19 Alecia Hamilton CNM PCP - General ADVANCED PRACTICE HOME SALES SERVICE PROFESSIONAL 06/19/1902/17 Heidy Mcdaniel, MEDICAL STENOGRAPHER [address] [place] [address] [phone] PCP - General NURSE PRACTITIONER 03/17/20 08/10/22 None, Provider, PCP - General UNKNOWN PHYSICIAN SPECIALTY 08/11/22 07/05/23 Keihsa Carvajal DNP [address] [place] [address] PCP - General NURSE PRACTITIONER 07/06/23 José Chauhan MD [address] [place] [phone] Consulting Physician INTERVENTIONAL CARDIOLOGY 03/17/20 documented as of this encounter
--- OUTSIDE RECORDS SUMMARY | 2025-01-12 19:34 | XMS_ITS | Encounter Summary ---
Author Organization [facility] Address [facility] [place] [address] Care Team Providers Care Medical Assisting Program Director Name Role Phone None, Provider Primary Care Provider Alecia Lubin CNM Primary Care Provider [phone] Heidy Mcdaniel NP Primary Care Provider [phone] José Chauhan MD Unavailable [phone] None, Provider Primary Care Provider Keisha Horn DNP Primary Care Provider [phone] Encounter Details Date Type Department Care Team (Late st Contact Info) Description 12/17/2004 Abstract [facility] Conversion , Generic [...] on filedocumented in this encounter Care Teams Medical Assisting Program Director Relationship Specialty Start Date End Date None, Provider, PCP - General 06/18/19 06/18/19 Alecia Hamilton CNM PCP - General ADVANCED PRACTICE OUTREACH COUNSELOR 06/19/1902/17 Heidy Mcdaniel, CIRCULATION MANAGER [address] [place] [address] [phone] PCP - General NURSE PRACTITIONER 03/17/20 08/10/22 None, Provider, PCP - General UNKNOWN PHYSICIAN SPECIALTY 08/11/22 07/05/23 Keisha Carvajal DNP [address] [place] [address] PCP - General NURSE PRACTITIONER 07/06/23 José Chauhan MD [address] [place] [phone] Consulting Physician INTERVENTIONAL CARDIOLOGY 03/17/20 documented as of this encounter
--- NOTE | 2025-01-12 20:06 | ED.ABDPAIN ---
HPI - Abdominal Pain General Chief Complaint: Abdominal Pain Stated Complaint: kidney stone, ovarian cyst Time Seen by Provider: 01/12/25 19:19 History of Present Illness HPI narrative: Patient is a 34-year-old female who presents to the ER complaining of abdominal pain. She reports her abdominal pain started yesterday morning. Patient went to [place] [facility] and that they diagnosed her with an ovarian cyst and kidney stone. She reports they did not send her home with any medication. Patient reports she has been fever-rosaura, incoherent and weak for the past 24 hours. She reports the pain is intermittent and radiates from a 2-3/10 to a 8/10. Patient endorses a history of a cholecystectomy, and an ectopic . She also endorses intermittent nausea at this time. Related Data Home Medications ?Medication ?Instructions ?Recorded ?Confirmed ?Last Taken ?Type desogestrel 0.15 mg-ethinyl 1 tablet PO DAILY 06/07/24 06/07/24 Unknown History estradiol 0.03 mg tablet (Apri) venlafaxine 75 mg capsule,extended 37.5 mg PO DAILY 06/07/24 06/07/24 Unknown History release 24 hr Allergies Allergy/AdvReac Type Severity Reaction Status Date / Time No Known Allergies Allergy Verified 10/25/24 17:15 Review of Systems Review of Systems: All systems reviewed & are unremarkable except as noted in HPI and below Exam Narrative: GENERAL: Well appearing, well-nourished, non-toxic, in no acute distress. HEAD: Normocephalic, atraumatic. NECK: Supple. No adenopathy, no masses. RESPIRATORY: Airway patent, respirations nonlabored. Clear to auscultation bilaterally, no rales, rhonchi, wheezing. CARDIOVASCULAR: Regular rate and rhythm without murmurs, rubs, or gallops. Peripheral pulses 2+ and equal bilaterally. ABDOMINAL: Soft, RUQ and RLQ tender with palpation, nondistended, no hepatosplenomegaly. Normoactive BS. MUSCULOSKELETAL: Moves all extremities. Strength/ROM intact without gross deformities. SKIN: Warm, dry, normal color. No rashes. NEURO: A&O X3. Speech clear. Cranial nerves II-XII intact. No ataxic movements. PSYCHIATRIC: Appropriate mood and affect. Normal interaction. Course Vital Signs Vital signs: Vital Signs Temperature 36.8 C 01/12/25 17:08 Pulse Rate 107 H 01/12/25 17:08 Respiratory Rate 20 01/12/25 17:08 Blood Pressure 112/65 01/12/25 17:08 Pulse Oximetry 100 01/12/25 17:08 Temperature 36.8 C 01/12/25 17:08 Pulse Rate 64 01/12/25 23:45 Respiratory Rate 18 01/12/25 23:45 Blood Pressure 141/100 H 01/12/25 23:45 Pulse Oximetry 98 01/12/25 23:45 MDM - Abdominal Pain MDM Narrative Medical decision making narrative: Patient is a 34-year-old female who presents to the ER complaining of abdominal pain. She reports her abdominal pain started yesterday morning. Patient went to [place] ER and that they diagnosed her with an ovarian cyst and kidney stone. She reports they did not send her home with any medication. Patient reports she has been fever-rosaura, incoherent and weak for the past 24 hours. She reports the pain is intermittent and radiates from a 2-3/10 to a 8/10. Patient endorses a history of a cholecystectomy, and an ectopic . She also endorses intermittent nausea at this time. Labs Ordered: CBC, CMP, lactic acid, lipase, PTT, INR, troponin, UA, CRP, blood culture Imaging Ordered: CT abdomen pelvis Medications Ordered: 0.5 mg Dilaudid IV, Pepcid 20 mg IV, 1 L normal saline IV bolus x 2, ceftriaxone 1 g IV, Toradol 30 mg IV Results: Patient's CT scan indicates 1. Hypodensity in the right kidney upper pole which may be pyelonephritis or a mass. Follow-up and further evaluation advised. 2. No evidence of appendicitis, diverticulitis or intestinal obstruction. 3. Constipation. 4. Right ovarian cysts. 5. Small sliding hiatus hernia. Diagnosis: Pyelonephritis Patient Education/Shared MDM: Results have lab work and imaging shared with patient. She endorses significant improvement following medication administration. Patient strongly advised to maintain hydration status upon discharge and follow-up with her PCP as soon as possible. She will be discharged home with a prescription for doxycycline and pyridium. Strict return precautions provided. Patient verbalized understanding and is in agreement with plan. Vital signs stable at time of discharge. All questions answered. Differential Diagnosis Differential diagnosis: Likely abdominal pain, acute appendicitis, calculus of kidney, small bowel obstruction and other (Pyelonephritis, urinary tract infection) Lab Data Attestation: I reviewed the patient's lab results. 01/12/25 20:30 01/12/25 20:30 Labs: Lab Results 01/12/25 01/12/25 01/12/25 Range/Units 20:30 20:40 23:19 WBC 9.0 (4.5-10.0) K/mm3 RBC 4.36 (4.2-5.4) M/mm3 Hgb 13.0 (12.0-15.0) g/dL Hct 38.9 (37.0-47.0) % MCV 89.2 (80-100) fl MCH 29.8 (26-34) pg MCHC 33.4 (32-36) g/dl RDW 12.4 (11.5-14.5) % Plt Count 185 (150-375) k/mm3 MPV 9.5 (7.4-10.4) fl Immature Gran % (Auto) 0.6 H (0-0.5) % Neut % (Auto) 69.8 (45.5-73.1) % Lymph % (Auto) 14.3 L (18.3-44.2) % [place] % (Auto) 15.1 H (2.6-8.5) % Eos % (Auto) 0.0 (0-4.4) % Baso % (Auto) 0.2 (0.2-1.2) % Lymph # (Auto) 1.28 (0.9-3.2) K/mm3 [place] # (Auto) 1.4 H (0.1-0.6) K/mm3 Eos # (Auto) 0.0 (0-0.3) K/mm3 Baso # (Auto) 0.0 (0.0-0.1) K/mm3 Abs Immat Gran (auto) 0.05 H (0.00-0.031) K/mm3 Absolute Neuts (auto) 6.3 (1.3-6.7) K/mm3 Absolute Nucleated RBC 0.000 (0.0-0.012) K/mm3 Nucleated RBC % 0.0 (0.0-0.2) % PT 14.1 (11.1-14.7) Seconds INR 1.0 APTT 32.3 (22.3-36.8) Seconds Sodium 138 (137-145) mmol/L Potassium 3.6 (3.4-5.0) mmol/L Chloride 106 (98-107) mmol/L Carbon Dioxide 22 (22-30) mmol/L Anion Gap 10 (4-12) mmol/L BUN 9 (7-17) mg/dL Creatinine 0.68 L (0.7-1.0) mg/dL Estim Creat Clear Calc 99 ml/min Estimated GFR > 60 (59 - ) Glucose 135 H (65-110) mg/dL Lactic Acid 2.0 (0.7-2.0) mmol/L Calcium 9.0 (8.4-10.2) mg/dL Total Bilirubin 0.6 (0.2-1.3) mg/dL AST 24 (14-36) U/L ALT 31 (6-35) U/L Alkaline Phosphatase 81 (38-126) U/L Troponin I < 0.012 (0.000-0.034) ng/mL C-Reactive Protein 7.1 H (<1.0) mg/dL Total Protein 8.0 (6.3-8.2) g/dL Albumin 4.4 (3.5-5.1) g/dL Lipase 55 (23-300) U/L Urine Color Yellow (Yellow) Urine Appearance Cloudy H (Clear) Urine pH 6.0 (5.0-9.0) Ur Specific [place] 1.009 (1.001-1.035) Urine Protein Negative (Negative) mg/dL Urine Glucose (UA) 1+ H (Negative) mg/dL Urine Ketones Negative (Negative) mg/dL Ur Blood (Man) 2+ H (Negative) Urine Nitrate Positive H (Negative) Urine Bilirubin Negative (Negative) Urine Urobilinogen 0.2 (<2.0) mg/dL Leukocyte Esterase Rfl 1+ H (Negative) MARILEE/UL Urine RBC 3-5 H (0-2) /hpf Urine WBC 21-50 H (0-3) /hpf Ur Squamous Epith Cells Few (Few) /hpf Urine Bacteria 4+ H /hpf Urine Casts 0-2 POC Urine HCG, Qual Negative (Negative) Urine Opiates Screen Negative (Negative) Urine Methadone Screen Negative (Negative) Ur Barbiturates Screen Negative (Negative) Ur Phencyclidine Scrn Negative (Negative) Ur Amphetamine Screen Negative (Negative) U Benzodiazepines Scrn Negative (Negative) Urine Cocaine Screen Negative (Negative) U Cannabinoids Screen Negative (Negative) Imaging Data Attestation: I personally reviewed and interpreted this imaging study as follows: Radiologist's impression: ITS Impressions Abdomen/Pelvis CT 01/12/25 21:31 IMPRESSION: 1. Hypodensity in the right kidney upper pole which may be pyelonephritis or a mass. Follow-up and further evaluation advised. 2. No evidence of appendicitis, diverticulitis or intestinal obstruction. 3. Constipation. 4. Right ovarian cysts. 5. Small sliding hiatus hernia. Discharge Plan Discharge Clinical Impression: Pyelonephritis, Urinary tract infection Patient Disposition: Home Condition: Stable Instructions: Antibiotic Form, Urinary Tract Infection in Women (DC), Kidney Infection (ED) Additional Instructions: Please return to the ER with any worsening symptoms. Follow-up with primary care provider as soon as possible. Take all medications as prescribed, including regularly scheduled medications. Complete your full dose of antibiotics. Take Pyridium as needed for bladder pain, but keep in mind it may turn your urine orange. Patient Language: Vietnamese Prescriptions: No Action venlafaxine 75 mg capsule,extended release 24hr 37.5 mg PO DAILY desogestrel-ethinyl estradiol [Apri] 0.15-0.03 mg tablet 1 tablet PO DAILY sulfamethoxazole-trimethoprim [Bactrim DS] 800-160 mg tablet 1 tablet PO Q12H 7 Days Qty: 14 0RF Follow-up/Referrals: PHYSICIAN,SCHOOL BUS INSPECTOR [Primary Care Provider] -
--- NOTE | 2025-01-12 20:11 | ECG_ITS ---
Test Date: 2025-01-12 20:34:45 Measurements Intervals [place] Rate: 86 P: 35 IN: 151 QRS: 43 QRSD: 87 T: -6 QT: 324 QTc: 389 Interpretive Statements SINUS RHYTHM NONSPECIFIC ST & T-WAVE ABNORMALITY- ANTEROLAT/INF LEADS BORDERLINE ECG No previous ECG available for comparison Electronically Signed On 01-13-2025 06:09:10 CDT by Joe Diane D.O.
[2025-01-12] MEDS: SODIUM CHLORIDE 0.9% IV 1,000 ML 999 ML IV CONT ×2 (20:31→22:32)
[2025-01-12] MEDS: KETOROLAC 30 MG/ML VIAL (*BKC) IV PUSH (20:32)
[2025-01-12] MEDS: ONDANSETRON INJ 4 MG/2 ML VIAL IV PUSH (20:32)
[2025-01-12 20:39] VITALS: PULSE 91; RESP 17; O2SAT 100
[2025-01-12 20:40] VITALS: BP 112/72
[2025-01-12 20:42] LABS: BEDSIDEPREGUCG Negative (Negative)
[2025-01-12 20:43] LABS: Basophils Percent Auto 0.2 % (0.2-1.2); Hematocrit 38.9 % (37.0-47.0); Immature Granulocyte Absolute 0.05 K/mm3 (0.00-0.031); Immature Granulocyte Percent A 0.6 % (0-0.5); Lymphocytes Absolute Auto 1.28 K/mm3 (0.9-3.2); Lymphocytes Percent Auto 14.3 % (18.3-44.2); Mean Corpuscular HGB Conc 33.4 g/dl (32-36); Mean Corpuscular Hemoglobin 29.8 pg (26-34); Mean Corpuscular Volume 89.2 fl (80-100); Mean Platelet Volume 9.5 fl (7.4-10.4); Monocytes Absolute Auto 1.4 K/mm3 (0.1-0.6); Monocytes Percent Auto 15.1 % (2.6-8.5); Neutrophils Absolute Auto 6.3 K/mm3 (1.3-6.7); Neutrophils Percent Auto 69.8 % (45.5-73.1); Platelet Count Result 185 k/mm3 (150-375); Red Blood Count 4.36 M/mm3 (4.2-5.4); Red Cell Distribution Width 12.4 % (11.5-14.5)
[2025-01-12 20:50] LABS: Add Urine Microscopic? YES; Appearance Urine Cloudy (Clear); Bacteria Urine 4+ /hpf; Bilirubin Urine Negative (Negative); Blood Urine 2+ (Negative); Color Urine Yellow (Yellow); Glucose Urine UA 1+ mg/dL (Negative); Ketones Urine Negative (Negative); Leukocyte Esterase Ur 1+ LEU/UL (Negative); Nitrate Urine Positive (Negative); Non Pathogenic Casts 0-2; Protein Urine Negative (Negative); Specific Grav Ur 1.009 (1.001-1.035); Squamous Epithelial Cell Urine Few /hpf (Few); Urobilinogen Urine 0.2 mg/dL (<2.0); WBC Urine 21-50 /hpf (0-3)
[2025-01-12 20:56] LABS: Partial Thromboplastin Time 32.3 Seconds (22.3-36.8); Prothrombin Time 14.1 Seconds (11.1-14.7)
[2025-01-12 20:59] LABS: Alanine Aminotransferase 31 U/L (6-35); Albumin Level 4.4 g/dL (3.5-5.1); Alkaline Phosphatase 81 U/L (38-126); Anion Gap 10 mmol/L (4-12); Aspartate Amino Transferase 24 U/L (14-36); Bilirubin,Total 0.6 mg/dL (0.2-1.3); Blood Urea Nitrogen 9 mg/dL (7-17); Carbon Dioxide 22 mmol/L (22-30); Chloride 106 mmol/L (98-107); Estimated CRCL calculation 99 ml/min; Estimated Glomerular Filt Rate > 60; Glucose 135 mg/dL (65-110); Lipase 55 U/L (23-300); Potassium 3.6 mmol/L (3.4-5.0); Sodium 138 mmol/L (137-145)
[2025-01-12 21:11] LABS: Troponin I < 0.012 ng/mL (0.000-0.034)
[2025-01-12 21:22] LABS: Amphetamine Screen Urine Negative (Negative); Barbiturate Screen Urine Negative (Negative); Benzodiazepines Screen Urine Negative (Negative); Cannabinoid Screen Urine Negative (Negative); Cocaine Screen Urine Negative (Negative); Methadone Screen Urine Negative (Negative); Opiate Screen Urine Negative (Negative); Phencyclidine Screen Urine Negative (Negative)
[2025-01-12] MEDS: FAMOTIDINE 20 MG/2 ML VIAL IV PUSH (22:32)
[2025-01-12] MEDS: HYDROmorphone HCL INJ (*CRX) 2 MG/ML VIAL 0.5 MG IV PUSH (22:32)
[2025-01-12 23:45] VITALS: BP 141/100; PULSE 64; RESP 18; O2SAT 98
--- NOTE | 2025-01-13 00:07 | PC.NURSE ---
Patient given clear soda for PO challenge. Patient states she does feel better. ERP notified.
[2025-01-13 00:20] LABS: CRP 7.1 mg/dL (<1.0)
== END 2025-01-13 01:05 | disposition home or self-care (01) ==
PROVIDERS: Emergency Provider Registered Nurse
DX: N12 Tubulo-interstitial nephritis, not specified as acute or chronic (principal); K44.9 Diaphragmatic hernia without obstruction or gangrene; N83.201 Unspecified ovarian cyst, right side; K59.00 Constipation, unspecified
CPT/HCPCS: 36415; 74177; 80053; 80307; 81001; 81025; 83605; 83690; 84484; 85025; 85610; 85730; 86140; 87040; 87086; 87186; 93005; 96361; 96365; 96375; 99284; J0696; J1171; J1885; J2405; J7030; Q9967